=== PATIENT | male | born 1955 | race Caucasian/White ===

== ENCOUNTER 2016-08-31 11:00 | Day surgery (SDC) | payer MEDICARE, OTHER ==
[~2016-08-31 11:00] MED LIST: GENTAMICIN SULFATE 80 MG in DEXTROSE 5 % IN WATER 100 ML IV PRN; metroNIDAZOLE/SODIUM CHLORIDE 500 MG/100 ML BAG IV PRN
--- OUTSIDE RECORDS SUMMARY | 2016-08-31 11:06 | XMS REPORT | Continuity of Care Document ---
:1955 Author Organization [facility] ([facility]) Address [address] [place] [address] Phone [phone] Care Team Providers Name Role Phone Christiano Ríos Primary Care Provider [phone] Source Comments This disclosure is being made pursuant to the Care Everywhere program, applicable federal and state laws, and may not contain all informaitonavailable regarding this patient.[facility] ([facility]) Active Allergies and Adverse Reactions Allergen Noted Date Severity Reactions Comments Penicillins 05/19/2009 Nausea & Vomiting Current Medications Prescription Sig. Disp. Refills Start Date End Date Status desvenlafaxine take 50 mg by mouth Active (PRISTIQ) 50 mg XR daily. tablet metoPROLol (TOPROL XL) take 50 mg by mouth 2 Active 50 mg XL tablet times daily. gemfibrozil (LOPID) take 600 mg by mouth Active 600 mg tablet 2 times daily. Fluticasone Furoate use 1 [place] into each Active 27.5 mcg/Actuation nostril as needed. SpSn lisinopril (PRINIVIL) take 40 mg by mouth 2 Active 40 mg tablet times daily. gabapentin (NEURONTIN) take 600 mg by mouth Active 600 mg tablet 2 times daily. nortriptyline take 100 mg by mouth Active (PAMELOR) 50 mg at bedtime. capsule ACETAMINOPHEN (TYLENOL Take 2 Tabs by mouth Active ARTHRITIS PO) 2 times daily. simvastatin 40 mg Take 40 mg by mouth Active tablet every evening. methocarbamol 750 mg Take 750 mg by mouth Active tablet 4 times daily. multivitamin (MULTIPLE Take 1 Tab by mouth 2 Active VITAMINS) tablet times daily. ursodiol 300 mg Take 1 Cap by mouth 3 90 Cap 8 10/15/2011 Active capsule times daily. Indications: CHOLELITHIASIS PREVENTION cyanocobalamin, place 5,000 mcg under Active vitamin B-12, (VITAMIN the tongue daily. OCT B-12) 5,000 mcg Subl Product GLIMEPIRIDE PO Take 1 Tab by mouth 2 Active times daily. 1/2 tab in AM, Full tab in evening omeprazole 20 mg Take 1 Cap by mouth 30 Cap 3 02/08/2012 Active extended release daily. Indications: capsule PREVENTION OF STRESS ULCER Active Problems Problem Noted Date Bariatric surgery status 10/29/2011 Morbid obesity 10/24/2011 Asthma 04/06/2011 Overview: On inhalers PRN Arthritis 04/06/2011 Overview: On Tylenol Arthristis Hypogonadism male 04/06/2011 Overview: Going shari start on Hormone therapy Diabetes mellitus type 2 in obese 02/08/2010 Last Assessment & Plan: Patient was previously on insulin. Now on Metformin and Glipizide (5 mg tid) Pain in joint, multiple sites 02/08/2010 Back pain 02/08/2010 Peripheral edema 02/08/2010 Depressive disorder, not elsewhere classified 02/08/2010 Mixed hyperlipidemia 08/04/2009 HTN (hypertension) 08/03/2009 Preop cardiovascular exam 08/03/2009 Social History Tobacco Use Types Packs/Day Years Used Date Former Smoker Quit: 05/10/2009 Smokeless Tobacco: Never Used Alcohol Use Drinks/Week oz/Week Comments Yes 3-6 Cans of beer 0.0 Last Filed Vital Signs Vital Sign Reading Time Taken Blood Pressure 142/73 03/14/2012 2:06 PM [employer] Pulse 70 03/14/2012 2:06 PM [employer] Temperature 36.3 C (97.3 F) 03/14/2012 2:06 PM [employer] Respiratory Rate 19 10/25/2011 4:00 PM CDT Height 1.85 m (6' 0.83") 03/14/2012 2:06 PM [employer] Weight 157.5 kg (347 lb 3.6 oz) 03/14/2012 2:06 PM [employer] Body Mass Index 46.02 03/14/2012 2:06 PM [employer] Oxygen Saturation 95% 10/25/2011 4:00 PM CDT Plan of Care Health Maintenance Due Date Last Done Comments HCV Screening 1955 Hepatitis B Vaccine (1 of 3 - 1955 Primary Series) Tdap Vaccine 1967 MMR Vaccine 1974 Td Vaccine 1974 Pneumococcal Vaccine (1 of 1 1975 - PPSV23) DIABETIC: Microalbumin 11/12/2000 11/13/1999 Colonoscopy 2006 Prostate Cancer Screening 2006 DIABETIC: Foot Exam 10/17/2010 DIABETIC: Retinal Eye Exam 10/17/2010 DIABETIC: Hemoglobin A1C 09/11/2012 03/14/2012, Additional history exists 02/08/2012, 11/30/2011 DIABETIC: Cholesterol 03/14/2013 03/14/2012, Additional history exists 09/06/2011, 01/12/2010 Diabetic: Hdl 03/14/2013 03/14/2012, Additional history exists 09/06/2011, 01/12/2010 Diabetic: Ldl 03/14/2013 03/14/2012, Additional history exists 09/06/2011, 01/12/2010 DIABETIC: Triglycerides 03/14/2013 03/14/2012, Additional history exists 09/06/2011, 01/12/2010 Influenza Vaccine: Seasonal 12/05/2015 (#1) Zoster Vaccine 2016 Results from Last 3 Months Not on file
--- OUTSIDE RECORDS SUMMARY | 2016-08-31 11:06 | XMS REPORT | Continuity of Care Document ---
:1955 Author Organization [facility] [place] [address] Care Team Providers Name Role Phone Unavailable Primary Care Provider Unavailable Source Comments This disclosure is being made pursuant to the [employer] program and maynot contain all information available regarding this patient.[facility] Active Allergies and Adverse Reactions Not on File Current Medications Be aware that medications may not be up to date as of this document. Alwaysverify current medications with the patient. Not on file Active Problems Not on file Social History Tobacco Use Types Packs/Day Years Used Date Never Assessed Plan of Care Health Maintenance Due Date Last Done Comments Tetanus/Pertussis (1 - Tdap) 1975 Colonoscopy 2006 Well Adult Visit 2006 Influenza Immunization (#1) 2016 Zoster Vaccine 60+ 2016 Results from Last 3 Months Not on file
--- OUTSIDE RECORDS SUMMARY | 2016-08-31 11:07 | XMS REPORT | Summary of Care ---
:1955 Author Organization [facility] Address [address] [place] [address] Care Team Providers Name Role Phone Mathieu Wilson J Primary Care Physician Encounter Date(s): 09/26/15 - 09/26/15 [facility] Tabatha Chowdhury, [address] [place], [place] [id number] Discharge Disposition: 01 Discharged to Home or Self Care Attending Physician: Alicia Saenz DPM Referring Physician: Alicia Saenz DPM Vital Signs Most recent to oldest [Reference Range]: 1 Peripheral Pulse Rate [60-100 bpm] 74 bpm (09/26/15 1:06 PM) Blood Pressure [90-130/60-90 mmHg] 164/85mmHg *HI* (09/26/15 1:06 PM) Mean Arterial Pressure, Cuff 111 mmHg (09/26/15 1:06 PM) Most recent to oldest [Reference Range]: 1 Height/Length Measured 185 cm (09/26/15 1:06 PM) Weight Dosing 158.80 kg1 (09/26/15 1:12 PM) Weight Measured 158.80 kg (09/26/15 1:06 PM) BSA Measured 2.73 m2 (09/26/15 1:06 PM) Body Mass Index Measured 46.4 kg/m2 (09/26/15 1:06 PM) 1Result Comment: This result was because the dosing weight was either not entered or it is>30 days old. This result is based off: Weight Measured September 26, 2015 13:06:00 CDT by Deloris Ngo Problem List Condition Effective Dates Status Health Status Informant Anxiety(Confirmed) Active Chronic back pain(Confirmed) Active BPH - Benign prostatic Active hypertrophy(Confirmed) Chronic pain(Confirmed) Active COPD(Confirmed) Active Generalized osteoarthritis(Confirmed) Active Depression(Confirmed) Active Diabetes mellitus type 2(Confirmed) Active Esophageal reflux(Confirmed) Active Hyperlipidemia(Confirmed) Active Hypertension(Confirmed) Active Hypertriglyceridemia(Confirmed) Active Impaired mobility(Confirmed) Active Impotence of organic origin(Confirmed) Active Chronic joint pain(Confirmed) Active Morbid (severe) obesity due to excess Active calories(Confirmed) MRSA(Confirmed) Active Neuropathic pain(Confirmed) Active Obesity(Confirmed) Active Unsteady gait(Confirmed) Active Allergies, Adverse Reactions, Alerts Substance Reaction Severity Status penicillins Vomiting Active Tape rash Severe Active Medications albuterol CFC free 90 mcg/inh inhalation aerosol 2 puff(s), Inhale, q4hr, PRN shortness of breath or wheezing, # 1 EA, 0 Refill(s ), Pharmacy: [place], [place] Start Date: 01/15/14 Stop Date: 02/14/14 Status: OrderedamLODIPine 5 mg oral tablet 1 tab(s), Oral, Daily, # 90 tab(s), 1 Refill(s), Start Date: 10/13/15 9:44:20 CDT, Pharmacy: [place], [place] Start Date: 10/13/15 Status: OrderedamLODIPine 5 mg oral tablet 1 tab(s), Oral, Daily, X 30 days, # 30 tab(s), 2 Refill(s), Start Date: 13:13:00 MANAGER PORTABLE, Pharmacy: [place] Start Date: 03/30/15 Stop Date: 07/12/15 Status: CompletedamLODIPine 5 mg oral tablet 1 tab(s), Oral, Daily, X 30 days, # 30 tab(s), 1 Refill(s), Start Date: 12:04:00 MANAGER PORTABLE, Pharmacy: [place] Start Date: 07/12/15 Stop Date: 10/13/15 Status: CompletedByetta Prefilled Pen 5 mcg/0.02 mL subcutaneous solution 0.02, Subcutaneous, BID, 0 Refill(s) Start Date: 12/24/13 Stop Date: 04/12/14 Status: DiscontinuedByetta Prefilled Pen 5 mcg/0.02 mL subcutaneous solution 5 mcg, Subcutaneous, BID, 30 day supply, # 1 QS, 2 Refill(s), Start Date: 11:25:24 MANAGER PORTABLE, Pharmacy: [place], [place] Special Instructions: insurance refused coverage--switched to Victo[employer] Start Date: 06/18/14 Stop Date: 07/27/14 Status: DiscontinuedByetta Prefilled Pen 5 mcg/0.02 mL subcutaneous solution 0.02, Subcutaneous, BID, 30 day supply, # 1 QS, 0 Refill(s), Start Date: 15:26:54 MANAGER PORTABLE, Pharmacy: [place], [place] Special Instructions: 30 day supply Start Date: 04/12/14 Stop Date: 06/18/14 Status: CompletedCentrum Silver oral tablet 1 tab(s), Oral, Daily, 0 Refill(s) Start Date: 01/10/14 Stop Date: 01/11/14 Status: Discontinuedcephalexin 250 mg oral capsule 1 cap(s), Oral, QID, # 40 cap(s), 0 Refill(s), Start Date: 08/15/15 14:16:00 CDT , Pharmacy: [place] Start Date: 08/15/15 Stop Date: 08/25/15 Status: Orderedcholecalciferol 50,000 intl units oral capsule 1 cap(s), Oral, q7day, # 8 cap(s), 0 Refill(s), Start Date: 08/23/14 8:17:00 CDT , Pharmacy: [place] Start Date: 08/23/14 Stop Date: 05/24/15 Status: CompletedCialis 20 mg oral tablet 0.5 tab(s), Oral, Daily, # 8 tab(s), 0 Refill(s), Start Date: 02/19/14 10:47:00 CDT, samples given to patient (Rx), [id number], 08/04/14 Start Date: 02/19/14 Stop Date: 08/19/14 Status: DiscontinuedCialis 20 mg oral tablet 0.5 tab(s), Oral, Daily, # 8 tab(s), 0 Refill(s), Start Date: 08/19/14 13:49:20 CDT, Pharmacy: [place], [place], [id number], 08/04/14 Start Date: 08/19/14 Stop Date: 05/24/15 Status: CompletedCialis 5 mg oral tablet 1 tab(s), Oral, Daily, PRN for erectile dysfunction, # 30 tab(s), 0 Refill(s), samples given to patient (Rx), [id number], 04/05/16 Start Date: 12/24/13 Stop Date: 03/05/14 Status: DiscontinuedCipro 500 mg oral tablet 1 tab(s), Oral, q12hr, # 20 tab(s), 0 Refill(s), Start Date: 09/26/15 13:39:00 CDT, Pharmacy: [place] Start Date: 09/26/15 Stop Date: 10/12/15 Status: CompletedCipro 500 mg oral tablet 1 tab(s), Oral, q12hr, # 28 tab(s), 0 Refill(s), Start Date: 10/12/15 10:51:00 CDT, Pharmacy: [place] Start Date: 10/12/15 Stop Date: 10/26/15 Status: Orderedciprofloxacin pt unsure of dose, 0 Refill(s) Special Instructions: pt unsure of dose Start Date: 01/10/14 Stop Date: 01/11/14 Status: Discontinuedciprofloxacin 500 mg oral tablet, extended release 1 tab(s), Oral, BID, take until 01/18/14, 0 Refill(s) Special Instructions: take until 01/18/14 Start Date: 01/11/14 Stop Date: 01/15/14 Status: Discontinuedclindamycin 300 mg oral capsule 1 cap(s), Oral, BID, # 20 cap(s), 0 Refill(s), Start Date: 09/26/15 13:39:00 CDT , Pharmacy: [place] Start Date: 09/26/15 Stop Date: 10/12/15 Status: Completedcyclobenzaprine 5 mg oral tablet 1 tab(s), Oral, TID, # 90 tab(s), 3 Refill(s), Start Date: 07/13/14 10:47:23 CDT , Pharmacy: [place] Start Date: 07/13/14 Stop Date: 11/04/14 Status: Completedcyclobenzaprine 5 mg oral tablet 1 tab(s), Oral, TID, X 30 days, # 90 tab(s), 1 Refill(s), Start Date: 05/21/14 13:15:00 MANAGER PORTABLE, Pharmacy: [place] Start Date: 05/21/14 Stop Date: 07/13/14 Status: Completedcyclobenzaprine 5 mg oral tablet 1 tab(s), Oral, TID, # 90 tab(s), 5 Refill(s), Start Date: 03/14/15 12:04:00 MANAGER PORTABLE , Pharmacy: [place] Start Date: 03/14/15 Status: Orderedcyclobenzaprine 5 mg oral tablet 1 tab(s), Oral, TID, # 90 tab(s), 3 Refill(s), Start Date: 11/04/14 16:52:55 CDT , Pharmacy: [place] Start Date: 11/04/14 Stop Date: 03/14/15 Status: Completedesomeprazole 20 mg oral delayed release capsule cap(s), Oral, Daily, 0 Refill(s) Start Date: 12/24/13 Stop Date: 01/11/14 Status: Discontinuedfenofibrate 145 mg oral tablet 1 tab(s), Oral, Daily, # 30 tab(s), 2 Refill(s), Start Date: 05/13/14 15:29:18 MANAGER PORTABLE, Pharmacy: [place] Start Date: 05/13/14 Stop Date: 08/12/14 Status: Completedfenofibrate 145 mg oral tablet 1 tab(s), Oral, Daily, # 30 tab(s), 0 Refill(s), Start Date: 04/12/14 15:26:55 MANAGER PORTABLE, Pharmacy: [place] Start Date: 04/12/14 Stop Date: 05/13/14 Status: Completedfenofibrate 145 mg oral tablet 1 tab(s), Oral, Daily, 0 Refill(s) Start Date: 01/11/14 Stop Date: 04/12/14 Status: Discontinuedfenofibrate 145 mg oral tablet 1 tab(s), Oral, Daily, # 30 tab(s), 5 Refill(s), Start Date: 12/09/14 17:53:00 CDT, Pharmacy: [place] Start Date: 12/09/14 Stop Date: 06/09/15 Status: Completedfenofibrate 145 mg oral tablet 1 tab(s), Oral, Daily, # 30 tab(s), 5 Refill(s), Start Date: 06/09/15 13:54:00 MANAGER PORTABLE, Pharmacy: [place] Start Date: 06/09/15 Status: Orderedfenofibrate 145 mg oral tablet 1 tab(s), Oral, Daily, # 30 tab(s), 3 Refill(s), Start Date: 08/12/14 17:14:48 CDT, Pharmacy: [place] Start Date: 08/12/14 Stop Date: 12/09/14 Status: Completedfenofibrate 54 mg oral tablet 1 tab(s), Oral, HS, 0 Refill(s) Start Date: 01/10/14 Stop Date: 01/11/14 Status: Discontinuedfluticasone 50 mcg/inh nasal spray 1-2 spray(s), Nasal, Daily, 0 Refill(s) Start Date: 12/24/13 Stop Date: 01/11/14 Status: Discontinuedfluticasone 50 mcg/inh nasal spray 1 spray(s), Nasal, BID, PRN allergy symptoms, # 1 EA, 5 Refill(s), Start Date: 06/02/15 13:11:00 MANAGER PORTABLE, Pharmacy: [place] Start Date: 06/02/15 Stop Date: 11/29/15 Status: Orderedfluticasone 50 mcg/inh nasal spray 1 puff(s), Nasal, Daily, # 1 EA, 0 Refill(s), Pharmacy: [place] Start Date: 01/15/14 Stop Date: 08/19/14 Status: Discontinuedgabapentin 800 mg oral tablet See Instructions, 800 mg in the AM and afternoon.1600 mg at HS., # 1 QS, 4 Refill(s), Start Date: 05/13/14 15:29:17 MANAGER PORTABLE, Pharmacy: [place] Special Instructions: 800 mg in the AM and afternoon.1600 mg at HS. Start Date: 05/13/14 Stop Date: 02/09/15 Status: Completedgabapentin 800 mg oral tablet 1 tab(s), Oral, TID, 0 Refill(s) Start Date: 12/24/13 Stop Date: 04/12/14 Status: Discontinuedgabapentin 800 mg oral tablet See Instructions, 800 mg in the AM and afternoon.1600 mg at HS., # 120 tab(s), 1 Refill(s), Start Date: 08/16/15 15:37:00 CDT, Pharmacy: [place] Special Instructions: 800 mg in the AM and afternoon.1600 mg at HS. Start Date: 08/16/15 Stop Date: 10/13/15 Status: Completedgabapentin 800 mg oral tablet See Instructions, 800 mg in the AM and afternoon.1600 mg at HS., # 120 tab(s), 5 Refill(s), Start Date: 02/09/15 12:11:00 CDT, Pharmacy: [place] Special Instructions: 800 mg in the AM and afternoon.1600 mg at HS. Start Date: 02/09/15 Stop Date: 08/16/15 Status: Completedgabapentin 800 mg oral tablet 1 tab(s), Oral, TID, # 90 tab(s), 0 Refill(s), Start Date: 04/12/14 15:26:56 MANAGER PORTABLE , Pharmacy: [place] Start Date: 04/12/14 Stop Date: 05/13/14 Status: Completedgabapentin 800 mg oral tablet See Instructions, 800 mg in the AM and afternoon.1600 mg at HS., # 120 tab(s), 1 Refill(s), Start Date: 10/13/15 9:47:12 CDT, Pharmacy: [place] Special Instructions: 800 mg in the AM and afternoon.1600 mg at HS. Start Date: 10/13/15 Status: Orderedglimepiride 4 mg oral tablet 1 tab(s), Oral, BID, # 60 tab(s), 2 Refill(s), Start Date: 05/13/14 15:29:19 MANAGER PORTABLE , Pharmacy: [place] Start Date: 05/13/14 Stop Date: 08/12/14 Status: Completedglimepiride 4 mg oral tablet 1 tab(s), Oral, BID, # 180 tab(s), 1 Refill(s), Start Date: 10/13/15 9:43:35 CDT , Pharmacy: [place] Start Date: 10/13/15 Status: Orderedglimepiride 4 mg oral tablet 1 tab(s), Oral, BID, 0 Refill(s) Start Date: 12/24/13 Stop Date: 04/12/14 Status: Discontinuedglimepiride 4 mg oral tablet 1 tab(s), Oral, BID, # 60 tab(s), 0 Refill(s), Start Date: 04/12/14 15:26:53 MANAGER PORTABLE , Pharmacy: [place] Start Date: 04/12/14 Stop Date: 05/13/14 Status: Completedglimepiride 4 mg oral tablet 1 tab(s), Oral, BID, # 180 tab(s), 3 Refill(s), Start Date: 09/16/14 18:17:38 CDT, Pharmacy: [place] Start Date: 09/16/14 Stop Date: 10/13/15 Status: Completedglimepiride 4 mg oral tablet 1 tab(s), Oral, BID, # 60 tab(s), 3 Refill(s), Start Date: 08/12/14 17:14:45 CDT , Pharmacy: [place] Start Date: 08/12/14 Stop Date: 09/16/14 Status: Completedheparin flush 10 units/mL intravenous solution 5 mL, IV Push, As Indicated, PRN PICC Maintenance, 0 Refill(s) Start Date: 01/15/14 Stop Date: 03/05/14 Status: DiscontinuedHumaLOG 100 units/mL subcutaneous solution See Instructions, Give 3 units plus sliding scale with evening meal., # 10 mL, 0 Refill(s), Start Date: 04/26/15 16:13:00 MANAGER PORTABLE, Pharmacy: [place] Special Instructions: Give 3 units plus sliding scale with evening meal. Start Date: 04/26/15 Stop Date: 05/10/15 Status: CompletedHumaLOG 100 units/mL subcutaneous solution See Instructions, Give 3 units plus sliding scale with evening meal., # 10 mL, 5 Refill(s), Start Date: 05/10/15 7:52:00 MANAGER PORTABLE, Pharmacy: [place] Special Instructions: Give 3 units plus sliding scale with evening meal. Start Date: 05/10/15 Status: Orderedhydrochlorothiazide 12.5 mg oral tablet 1 tab(s), Oral, Daily, X 30 days, # 30 tab(s), 2 Refill(s), Start Date: 14:25:00 CDT, Pharmacy: [place] Start Date: 07/19/15 Stop Date: 08/15/15 Status: Completedhydrochlorothiazide 25 mg oral tablet 1 tab(s), Oral, Daily, # 30 tab(s), 2 Refill(s), Start Date: 08/15/15 13:53:00 CDT, Pharmacy: [place] Start Date: 08/15/15 Stop Date: 11/13/15 Status: Orderedinsulin detemir 100 units/mL subcutaneous solution See Instructions, 20 units in the AM and PM daily. 30 day supply, Levimer FlexTouch, # 1 QS, 1 Refill(s), Start Date: 04/12/14 15:26:54 MANAGER PORTABLE, Pharmacy: [place] Special Instructions: 20 units in the AM and PM daily. 30 day supply, Levimer FlexTouch Start Date: 04/12/14 Stop Date: 08/12/14 Status: Completedinsulin detemir 100 units/mL subcutaneous solution 0.2 mL, Subcutaneous, Daily, 0 Refill(s) Start Date: 01/15/14 Stop Date: 04/12/14 Status: Discontinuedinsulin detemir 100 units/mL subcutaneous solution See Instructions, 20 units in the AM and PM daily. 30 day supply, Levimer FlexTouch, # 15 mL, 5 Refill(s), Start Date: 10/11/14 9:46:52 CDT, Pharmacy: [place] Special Instructions: 20 units in the AM and PM daily. 30 day supply, Levimer FlexTouch Start Date: 10/11/14 Stop Date: 05/11/15 Status: Completedinsulin detemir 100 units/mL subcutaneous solution See Instructions, 20 units in the AM and PM daily. 30 day supply, Levimer FlexTouch, # 15 mL, 3 Refill(s), Start Date: 08/12/14 17:14:46 CDT, Pharmacy: [place] Special Instructions: 20 units in the AM and PM daily. 30 day supply, Levimer FlexTouch Start Date: 08/12/14 Stop Date: 10/11/14 Status: Completedinsulin detemir 100 units/mL subcutaneous solution See Instructions, 20 units in the AM and 30 units PM daily. 30 day supply, Levimer FlexTouch, # 15 mL, 11 Refill(s), Start Date: 05/11/15 17:34:00 MANAGER PORTABLE, Pharmacy: [place] Special Instructions: 20 units in the AM and 30 units PM daily. 30 day supply, Levimer FlexTouch Start Date: 05/11/15 Status: OrderedInsulin Pen [place] 516" 31G 100 [place], Subcutaneous, Daily, use once daily. DX 250.00. Easy touch pen needles., # 1 QS, 1 Refill(s), Pharmacy: [place], [place], Supply Special Instructions: use once daily. DX 250.00. Easy touch pen needles. Start Date: 09/07/14 Stop Date: 08/16/15 Status: DiscontinuedInsulin Pen [place] 5/16" 31G 100 [place], Subcutaneous, Daily, use daily. DX 250.00, # 1 QS, 1 Refill(s), Supply Special Instructions: use daily. DX 250.00 Start Date: 09/07/14 Stop Date: 09/07/14 Status: DiscontinuedInsulin Syringes 3/10" 31G 6mm See Instructions, Subcutaneous TID. DX E11.9. Patient states that he needs 50 unit syringes., # 300 EA, 3 Refill(s), Pharmacy: [place], [place] , Supply Special Instructions: Subcutaneous TID. DX E11.9. Patient states that he needs 50 unit syringes. Start Date: 06/02/15 Status: OrderedInsulin Syringes 3/10" 31G 6mm 300 syringe(s), Subcutaneous, TID, DX E11.9. Patient states that he uses 50 unit syringes., # 3 boxes, 0 Refill(s), Supply Special Instructions: DX E11.9. Patient states that he uses 50 unit syringes. Start Date: 06/02/15 Stop Date: 06/02/15 Status: DiscontinuedLevemir FlexPen/FlexTouch 100 units/mL subcutaneous solution Subcutaneous, 0 Refill(s) Start Date: 12/24/13 Stop Date: 01/11/14 Status: DiscontinuedLevemir FlexPen/FlexTouch 100 units/mL subcutaneous solution 20 units, Subcutaneous, BID, 0 Refill(s) Start Date: 01/11/14 Stop Date: 01/15/14 Status: Discontinuedlisinopril 40 mg oral tablet 1 tab(s), Oral, BID, # 60 tab(s), 2 Refill(s), Start Date: 05/13/14 15:29:19 MANAGER PORTABLE , Pharmacy: [place] Start Date: 05/13/14 Stop Date: 08/12/14 Status: Completedlisinopril 40 mg oral tablet 1 tab(s), Oral, BID, 0 Refill(s) Start Date: 12/24/13 Stop Date: 01/15/14 Status: Discontinuedlisinopril 40 mg oral tablet 1 tab(s), Oral, BID, # 180 tab(s), 1 Refill(s), Start Date: 10/13/15 9:42:12 CDT , Pharmacy: [facility], [place] Start Date: 10/13/15 Status: Orderedlisinopril 40 mg oral tablet 1 tab(s), Oral, Daily, # 30 tab(s), 0 Refill(s), Start Date: 01/15/14 9:26:00 CDT, Pharmacy: [facility], [place] Start Date: 01/15/14 Stop Date: 04/12/14 Status: Completedlisinopril 40 mg oral tablet 1 tab(s), Oral, BID, # 60 tab(s), 0 Refill(s), Start Date: 04/12/14 15:26:53 MANAGER PORTABLE , Pharmacy: [facility], [place] Start Date: 04/12/14 Stop Date: 05/13/14 Status: Completedlisinopril 40 mg oral tablet 1 tab(s), Oral, BID, # 180 tab(s), 3 Refill(s), Start Date: 09/16/14 18:17:38 CDT, Pharmacy: [place] Start Date: 09/16/14 Stop Date: 10/13/15 Status: Completedlisinopril 40 mg oral tablet 1 tab(s), Oral, BID, # 60 tab(s), 3 Refill(s), Start Date: 08/12/14 17:14:45 CDT , Pharmacy: [place] Start Date: 08/12/14 Stop Date: 09/16/14 Status: CompletedMaxair Autohaler 0.2 mg/inh inhalation aerosol 2 puff(s), Inhale, q4hr interval, 0 Refill(s) Start Date: 12/24/13 Stop Date: 01/11/14 Status: DiscontinuedmetFORMIN 500 mg oral tablet 2 tab(s), Oral, BID, # 360 tab(s), 1 Refill(s), Start Date: 10/13/15 9:42:53 CDT , Pharmacy: [place] Start Date: 10/13/15 Status: OrderedmetFORMIN 500 mg oral tablet 2 tab(s), Oral, BID, 0 Refill(s), Start Date: 12/24/13 9:43:00 CDT Start Date: 12/24/13 Stop Date: 04/12/14 Status: DiscontinuedmetFORMIN 500 mg oral tablet 2 tab(s), Oral, BID, # 360 tab(s), 3 Refill(s), Start Date: 09/16/14 18:17:39 CDT, Pharmacy: [place] Start Date: 09/16/14 Stop Date: 10/13/15 Status: CompletedmetFORMIN 500 mg oral tablet 2 tab(s), Oral, BID, # 120 tab(s), 2 Refill(s), Start Date: 05/13/14 15:29:16 MANAGER PORTABLE, Pharmacy: [place] Start Date: 05/13/14 Stop Date: 08/12/14 Status: CompletedmetFORMIN 500 mg oral tablet 2 tab(s), Oral, BID, # 120 tab(s), 3 Refill(s), Start Date: 08/12/14 17:14:47 CDT, Pharmacy: [facility], [place] Start Date: 08/12/14 Stop Date: 09/16/14 Status: CompletedmetFORMIN 500 mg oral tablet 2 tab(s), Oral, BID, # 120 tab(s), 0 Refill(s), Start Date: 04/12/14 15:26:54 MANAGER PORTABLE, Pharmacy: [place] Start Date: 04/12/14 Stop Date: 05/13/14 Status: Completedmethocarbamol 750 mg oral tablet 1 tab(s), Oral, QID, # 120 tab(s), 0 Refill(s), Start Date: 04/12/14 15:26:53 MANAGER PORTABLE, Pharmacy: [facility], [place] Start Date: 04/12/14 Stop Date: 05/13/14 Status: Completedmethocarbamol 750 mg oral tablet 1 tab(s), Oral, QID, 0 Refill(s) Start Date: 12/24/13 Stop Date: 04/12/14 Status: Discontinuedmethocarbamol 750 mg oral tablet 1 tab(s), Oral, QID, # 120 tab(s), 2 Refill(s), Start Date: 05/13/14 15:29:20 MANAGER PORTABLE, Pharmacy: [facility], [place] Start Date: 05/13/14 Stop Date: 05/21/14 Status: DiscontinuedMetoprolol Tartrate 25 mg oral tablet 1 tab(s), Oral, BID, # 60 tab(s), 4 Refill(s), Start Date: 05/13/14 15:29:18 MANAGER PORTABLE , Pharmacy: [facility], [place] Start Date: 05/13/14 Stop Date: 11/04/14 Status: CompletedMetoprolol Tartrate 25 mg oral tablet 1 tab(s), Oral, BID, 0 Refill(s) Start Date: 12/24/13 Stop Date: 04/12/14 Status: DiscontinuedMetoprolol Tartrate 25 mg oral tablet 1 tab(s), Oral, BID, # 60 tab(s), 5 Refill(s), Start Date: 01/11/15 17:54:00 CDT , Pharmacy: [facility], [place] Start Date: 01/11/15 Stop Date: 08/16/15 Status: CompletedMetoprolol Tartrate 25 mg oral tablet 1 tab(s), Oral, BID, # 60 tab(s), 0 Refill(s), Start Date: 04/12/14 15:26:55 MANAGER PORTABLE , Pharmacy: [place] Start Date: 04/12/14 Stop Date: 05/13/14 Status: CompletedMetoprolol Tartrate 25 mg oral tablet 1 tab(s), Oral, BID, Appt due in November, # 60 tab(s), 1 Refill(s), Start Date: 06/20 16:52:55 CDT, Pharmacy: [place] Special Instructions: Appt due in November Start Date: 11/04/14 Stop Date: 01/11/15 Status: CompletedMetoprolol Tartrate 25 mg oral tablet 1 tab(s), Oral, BID, # 60 tab(s), 1 Refill(s), Start Date: 08/16/15 15:37:00 CDT , Pharmacy: [place] Start Date: 08/16/15 Stop Date: 10/13/15 Status: CompletedMetoprolol Tartrate 25 mg oral tablet 1 tab(s), Oral, BID, # 180 tab(s), 1 Refill(s), Start Date: 10/13/15 9:46:39 CDT , Pharmacy: [place] Start Date: 10/13/15 Status: OrderedMisc Prescription Misc Prescription, See Instructions, Easy Touch pen needles 5/16, use once daily. DX E11.9, # 100 EA, 1 Refill(s), Pharmacy: [place] , Compound Special Instructions: Easy Touch pen needles 5/16, use once daily. DX E11.9 Start Date: 02/09/15 Status: OrderedMisc Prescription See Instructions, Easy Touch pen needles 5/16, use once daily. DX E11.9, # 100 EA, 1 Refill(s), Supply Special Instructions: Easy Touch pen needles 5/16, use once daily. DX E11.9 Start Date: 02/09/15 Stop Date: 02/09/15 Status: Discontinuednabumetone See Instructions, One tablet twice daily, 0 Refill(s), Start Date: 04/09/14 13: 44:00 MANAGER PORTABLE Special Instructions: One tablet twice daily Start Date: 04/09/14 Stop Date: 04/21/14 Status: Discontinuednabumetone 750 mg oral tablet 2 tab(s), Oral, BID, # 120 tab(s), 5 Refill(s), Start Date: 08/19/14 13:47:59 CDT, Pharmacy: [place] Start Date: 08/19/14 Stop Date: 12/09/14 Status: Completednabumetone 750 mg oral tablet 2 tab(s), Oral, BID, # 60 tab(s), 2 Refill(s), Start Date: 05/21/14 13:07:38 MANAGER PORTABLE , Pharmacy: [place] Start Date: 05/21/14 Stop Date: 08/12/14 Status: Completednabumetone 750 mg oral tablet 2 tab(s), Oral, BID, with food, # 120 tab(s), 5 Refill(s), Start Date: 06/09/15 13:54:00 MANAGER PORTABLE, Pharmacy: [place] Special Instructions: with food Start Date: 06/09/15 Status: Orderednabumetone 750 mg oral tablet 2 tab(s), Oral, BID, # 120 tab(s), 3 Refill(s), Start Date: 08/12/14 17:14:46 CDT, Pharmacy: [facility], [place] Start Date: 08/12/14 Stop Date: 08/19/14 Status: Discontinuednabumetone 750 mg oral tablet 2 tab(s), Oral, BID, # 120 tab(s), 5 Refill(s), Start Date: 12/09/14 17:53:00 CDT, Pharmacy: [place] Start Date: 12/09/14 Stop Date: 06/09/15 Status: Completednabumetone 750 mg oral tablet 2 tab(s), Oral, BID, # 60 tab(s), 2 Refill(s), Start Date: 04/21/14 10:40:00 MANAGER PORTABLE , Pharmacy: [place] Start Date: 04/21/14 Stop Date: 05/21/14 Status: CompletedNasonex 50 mcg/inh nasal spray 2 spray(s), Nasal, Daily, PRN as needed for allergy symptoms, # 17 gm, 0 Refill( s), Start Date: 08/19/14 13:21:00 CDT Start Date: 08/19/14 Status: OrderedNorco 5 mg-325 mg oral tablet 1 tab(s), Oral, q4hr, PRN pain moderate 4-7, # 30 tab(s), 0 Refill(s) Start Date: 01/15/14 Stop Date: 01/22/14 Status: Completednortriptyline 50 mg oral capsule 3 cap(s), Oral, HS, # 90 cap(s), 5 Refill(s), Start Date: 12/09/14 17:53:00 CDT , Pharmacy: [place] Start Date: 12/09/14 Stop Date: 06/09/15 Status: Completednortriptyline 50 mg oral capsule 3 cap(s), Oral, HS, 0 Refill(s) Start Date: 12/24/13 Stop Date: 04/12/14 Status: Discontinuednortriptyline 50 mg oral capsule 3 cap(s), Oral, HS, # 90 cap(s), 3 Refill(s), Start Date: 08/12/14 17:14:44 CDT , Pharmacy: [facility], [place] Start Date: 08/12/14 Stop Date: 12/09/14 Status: Completednortriptyline 50 mg oral capsule 3 cap(s), Oral, HS, # 90 cap(s), 2 Refill(s), Start Date: 05/13/14 15:29:17 MANAGER PORTABLE , Pharmacy: [facility], [place] Start Date: 05/13/14 Stop Date: 08/12/14 Status: Completednortriptyline 50 mg oral capsule 3 cap(s), Oral, HS, # 90 cap(s), 5 Refill(s), Start Date: 06/09/15 13:54:00 MANAGER PORTABLE , Pharmacy: [facility], [place] Start Date: 06/09/15 Status: Orderednortriptyline 50 mg oral capsule 3 cap(s), Oral, HS, # 90 cap(s), 0 Refill(s), Start Date: 04/12/14 15:26:55 MANAGER PORTABLE , Pharmacy: [place] Start Date: 04/12/14 Stop Date: 05/13/14 Status: Completedomeprazole 20 mg oral delayed release capsule 1 cap(s), Oral, BID, # 60 cap(s), 5 Refill(s), Start Date: 09/21/15 14:54:43 CDT , Pharmacy: [place] Start Date: 09/21/15 Status: Orderedomeprazole 20 mg oral delayed release capsule 1 cap(s), Oral, BID, # 60 cap(s), 5 Refill(s), Start Date: 09/07/14 16:08:52 CDT , Pharmacy: [place], [place] Start Date: 09/07/14 Stop Date: 03/14/15 Status: Completedomeprazole 20 mg oral delayed release capsule 1 cap(s), Oral, BID, # 60 cap(s), 0 Refill(s), Start Date: 04/12/14 15:26:52 MANAGER PORTABLE , Pharmacy: [place], [place] Start Date: 04/12/14 Stop Date: 05/13/14 Status: Completedomeprazole 20 mg oral delayed release capsule 1 cap(s), Oral, BID, # 60 cap(s), 5 Refill(s), Start Date: 03/14/15 12:04:00 MANAGER PORTABLE , Pharmacy: [place], [place] Start Date: 03/14/15 Stop Date: 09/21/15 Status: Completedomeprazole 20 mg oral delayed release capsule 1 cap(s), Oral, Daily, 0 Refill(s) Start Date: 01/11/14 Stop Date: 04/12/14 Status: Discontinuedomeprazole 20 mg oral delayed release capsule 1 cap(s), Oral, BID, # 60 cap(s), 3 Refill(s), Start Date: 05/13/14 15:29:17 MANAGER PORTABLE , Pharmacy: [place], [place] Start Date: 05/13/14 Stop Date: 09/07/14 Status: CompletedPen [place] Mini 31G 5mm See Instructions, Use daily with Tresiba and Victoza. DX E11.9, # 200 EA, 1 Refill(s), Pharmacy: [place], [place], Supply Special Instructions: Use daily with Tresiba and Victoza. DX E11.9 Start Date: 08/16/15 Status: OrderedPen [place] Mini 31G 5mm See Instructions, Use daily with Tresiba and Victoza, # 200 EA, 1 Refill(s), Supply Special Instructions: Use daily with Tresiba and Victoza Start Date: 08/16/15 Stop Date: 08/16/15 Status: DiscontinuedPneumovax 23 injectable solution See Instructions, IM ONETIME as directed, # 1 EA, 0 Refill(s), Start Date: 03/05 15:22:00 CDT, Pharmacy: [place], [place] Special Instructions: IM ONETIME as directed Start Date: 03/05/14 Stop Date: 08/19/14 Status: DiscontinuedPneumovax 23 injectable solution 0.5 mL, IM, ONETIME, # 1 mL, 0 Refill(s), Start Date: 03/05/14 15:20:00 CDT Start Date: 03/05/14 Stop Date: 03/05/14 Status: DiscontinuedPristiq 100 mg oral tablet, extended release 1 tab(s), Oral, Daily, # 30 tab(s), 5 Refill(s), Start Date: 12/09/14 17:53:00 CDT, Pharmacy: [place], [place] Start Date: 12/09/14 Stop Date: 06/09/15 Status: CompletedPristiq 100 mg oral tablet, extended release 1 tab(s), Oral, Daily, # 30 tab(s), 2 Refill(s), Start Date: 05/13/14 15:29:16 MANAGER PORTABLE, Pharmacy: [place] Start Date: 05/13/14 Stop Date: 08/12/14 Status: CompletedPristiq 100 mg oral tablet, extended release 1 tab(s), Oral, Daily, # 30 tab(s), 5 Refill(s), Start Date: 06/09/15 13:54:00 MANAGER PORTABLE, Pharmacy: [place] Start Date: 06/09/15 Status: OrderedPristiq 100 mg oral tablet, extended release 1 tab(s), Oral, Daily, # 30 tab(s), 0 Refill(s) Start Date: 01/11/14 Stop Date: 04/12/14 Status: DiscontinuedPristiq 100 mg oral tablet, extended release 1 tab(s), Oral, Daily, # 30 tab(s), 0 Refill(s), Start Date: 04/12/14 15:26:54 MANAGER PORTABLE, Pharmacy: [place] Start Date: 04/12/14 Stop Date: 05/13/14 Status: CompletedPristiq 100 mg oral tablet, extended release 1 tab(s), Oral, Daily, # 30 tab(s), 3 Refill(s), Start Date: 08/12/14 17:14:47 CDT, Pharmacy: [place] Start Date: 08/12/14 Stop Date: 12/09/14 Status: CompletedPristiq 50 mg oral tablet, extended release 2 tab(s), Oral, Daily, 0 Refill(s) Start Date: 12/24/13 Stop Date: 01/11/14 Status: DiscontinuedSenokot S 50 mg-8.6 mg oral tablet 1 tab(s), Oral, BID, X 7 days, # 14 tab(s), 0 Refill(s), Pharmacy: [place], [place] Start Date: 01/15/14 Stop Date: 01/22/14 Status: CompletedSuprep Bowel Prep Kit oral liquid 1 kit(s), Oral, ONETIME, # 1 kit(s), 0 Refill(s), Start Date: 04/12/15 8:52:00 MANAGER PORTABLE, Pharmacy: [place], [place] Start Date: 04/12/15 Stop Date: 05/26/15 Status: CompletedSuprep Bowel Prep Kit oral liquid 1 bottles, Oral, BID, Mix 1 btl to 16oz water and drink. Next morning; repeat use second btl. Complete at least 1 hr before colonscopy., # 1 kit(s), 0 Refill (s), Start Date: 04/12/15 8:38:00 MANAGER PORTABLE, Pharmacy: [place], [place] Special Instructions: Mix 1 btl to 16oz water and drink. Next morning; repeat use second btl. Complete at least 1 hr before colonscopy. Start Date: 04/12/15 Stop Date: 04/13/15 Status: CompletedTest Strips Other (See Comment) 3 Month Supply, Subcutaneous, TID, Truetest glucose test strips. DX 250.00, # 1 QS, 1 Refill(s), Pharmacy: [place], [place], Supply Special Instructions: Truetest glucose test strips. DX 250.00 Start Date: 05/13/14 Stop Date: 12/16/14 Status: CompletedTest Strips Other (See Comment) 3 Month Supply, Subcutaneous, TID, Truetest glucose test strips. DX E11.9, # 300 EA, 1 Refill(s), Pharmacy: [place], [place], Supply Special Instructions: Truetest glucose test strips. DX E11.9 Start Date: 02/09/15 Status: OrderedTest Strips Other (See Comment) 3 Month Supply, Subcutaneous, TID, Truetest glucose test strips. DX 250.00, # 1 QS, 1 Refill(s), Supply Special Instructions: Truetest glucose test strips. DX 250.00 Start Date: 05/13/14 Stop Date: 05/13/14 Status: DiscontinuedTest Strips Other (See Comment) 3 Month Supply, Subcutaneous, TID, Truetest glucose test strips. DX 250.00, # 1 QS, 1 Refill(s), Pharmacy: [place], [place], Supply Special Instructions: Truetest glucose test strips. DX 250.00 Start Date: 12/16/14 Stop Date: 02/09/15 Status: CompletedtraMADol 50 mg oral tablet 1 tab(s), Oral, q6hr interval, PRN pain moderate 4-7, # 60 tab(s), 1 Refill(s), Start Date: 05/21/14 13:07:39 MANAGER PORTABLE, Pharmacy: [place] Start Date: 05/21/14 Stop Date: 05/24/15 Status: CompletedtraMADol 50 mg oral tablet 1 tab(s), Oral, q6hr interval, PRN pain moderate 4-7, # 60 tab(s), 0 Refill(s), Start Date: 01/15/14 6:52:00 CDT Start Date: 01/15/14 Stop Date: 05/21/14 Status: CompletedtraMADol 50 mg oral tablet 1 tab(s), Oral, q6hr interval, 0 Refill(s) Start Date: 01/08/14 Stop Date: 01/11/14 Status: DiscontinuedTresiba FlexTouch 200 units/mL subcutaneous solution 50 units, Subcutaneous, Daily, # 9 mL, 1 Refill(s), Start Date: 10/13/15 9:45: 32 CDT, Pharmacy: [place] Start Date: 10/13/15 Status: OrderedTresiba FlexTouch 200 units/mL subcutaneous solution See Instructions, 50 units Subcutaneous Daily, # 1 EA, 2 Refill(s), Start Date: 07/19/15 14:26:00 CDT, Pharmacy: [place], [place] Special Instructions: 50 units Subcutaneous Daily Start Date: 07/19/15 Stop Date: 10/13/15 Status: CompletedTylenol Arthritis Caplet mg, Oral, q8hr interval, 0 Refill(s) Start Date: 12/24/13 Status: OrderedUnasyn 2 g-1 g injection 3 gm, IV, q6hr interval, # 148 bags, 0 Refill(s) Start Date: 01/15/14 Stop Date: 08/19/14 Status: Discontinuedursodiol 300 mg oral capsule 1 cap(s), Oral, TID, 0 Refill(s) Start Date: 12/24/13 Stop Date: 04/12/14 Status: Discontinuedursodiol 300 mg oral capsule 1 cap(s), Oral, TID, # 90 cap(s), 2 Refill(s), Start Date: 05/13/14 15:29:20 MANAGER PORTABLE , Pharmacy: [place] Start Date: 05/13/14 Stop Date: 08/12/14 Status: Completedursodiol 300 mg oral capsule 1 cap(s), Oral, TID, # 90 cap(s), 5 Refill(s), Start Date: 06/09/15 13:54:00 MANAGER PORTABLE , Pharmacy: [place] Start Date: 06/09/15 Stop Date: 12/06/15 Status: Orderedursodiol 300 mg oral capsule 1 cap(s), Oral, TID, # 90 cap(s), 5 Refill(s), Start Date: 12/09/14 17:53:00 CDT , Pharmacy: [place] Start Date: 12/09/14 Stop Date: 06/09/15 Status: Completedursodiol 300 mg oral capsule 1 cap(s), Oral, TID, # 90 cap(s), 3 Refill(s), Start Date: 08/12/14 17:14:47 CDT , Pharmacy: [place] Start Date: 08/12/14 Stop Date: 12/09/14 Status: Completedursodiol 300 mg oral capsule 1 cap(s), Oral, TID, # 90 cap(s), 0 Refill(s), Start Date: 04/12/14 15:26:52 MANAGER PORTABLE , Pharmacy: [place] Start Date: 04/12/14 Stop Date: 05/13/14 Status: CompletedVicodin 5 mg-325 mg oral tablet See Instructions, 1-2 tabOral 4- q6hr interval, 0 Refill(s) Special Instructions: 1-2 tabOral 4- q6hr interval Start Date: 01/28/14 Stop Date: 03/05/14 Status: DiscontinuedVictoza 18 mg/3 mL subcutaneous solution 0.6 mg, Subcutaneous, Daily, 0.6 mg daily for 7 days then increase to 1.2 mg daily., # 6 mL, 2 Refill(s), Start Date: 07/27/14 12:14:00 CDT, Pharmacy: [place], [place] Special Instructions: 0.6 mg daily for 7 days then increase to 1.2 mg daily. Start Date: 07/27/14 Stop Date: 11/16/14 Status: CompletedVictoza 18 mg/3 mL subcutaneous solution 1.2 mg, Subcutaneous, Daily, # 1 QS, 5 Refill(s), Start Date: 11/16/14 15:52:54 CDT, Pharmacy: [place] Start Date: 11/16/14 Stop Date: 03/30/15 Status: DiscontinuedVictoza 18 mg/3 mL subcutaneous solution 1.8 mg, Subcutaneous, Daily, # 1 QS, 5 Refill(s), Start Date: 03/30/15 11:25:28 MANAGER PORTABLE, Pharmacy: [place] Start Date: 03/30/15 Stop Date: 09/26/15 Status: OrderedVitamin D3 1000 intl units oral tablet 1 tab(s), Oral, Daily, # 30 tab(s), 0 Refill(s), Start Date: 05/24/15 11:56:00 MANAGER [employer]ABLE Start Date: 05/24/15 Status: OrderedZostavax subcutaneous injection See Instructions, Subcutaneous ONETIME as directed, # 1 EA, 0 Refill(s), Start Date: 03/05/14 15:20:00 CDT, Pharmacy: [facility] [place], [place] Special Instructions: Subcutaneous ONETIME as directed Start Date: 03/05/14 Stop Date: 08/19/14 Status: DiscontinuedZostavax subcutaneous injection 1 EA, Subcutaneous, ONETIME, # 1 EA, 0 Refill(s), Start Date: 03/05/14 15:19:00 CDT Start Date: 03/05/14 Stop Date: 03/05/14 Status: Discontinued Results No data available for this section Immunizations No data available for this section Procedures Procedure Date Related Diagnosis Body Site Colonoscopy1 05/26/15 Esophagogastroduodenoscopy2 05/26/15 Transurethral Resection Prostate3 02/01/14 Tendonesis (Left, Foot L)4 01/12/14 Cystoscopy 01/01/14 Ear drum5 2011 Gastric biopsy 2011 Polyp of vocal cord6 2010 Amputation of toe [id number] 1auto-populated from documented surgical [id number] from documented surgical [id number] from documented surgical [id number] from documented surgical [id number] Social History No data available for this section Assessment and Plan No data available for this section
--- OUTSIDE RECORDS SUMMARY | 2016-08-31 11:08 | XMS REPORT | Summary of Care ---
:1955 Author Organization [facility] Address [address] [place] [address] Care Team Providers Name Role Phone Mathieu Wilson J Primary Care Physician Encounter Date(s): 09/26/15 - 09/26/15 [facility] Tabatha Chowdhury, [address] [place], [place] [address] Discharge Disposition: 01 Discharged to Home or [...] # 1 EA, 0 Refill(s ), Pharmacy: [place], [place] Start Date: 01/15/14 Stop Date: 02/14/14 Status: OrderedamLODIPine 5 mg oral tablet 1 tab(s), Oral, Daily, # 90 tab(s), 1 Refill(s), Start Date: 10/13/15 9:44:20 CDT, Pharmacy: [place] Start Date: 10/13/15 Status: OrderedamLODIPine 5 mg oral tablet 1 tab(s), Oral, Daily, X 30 days, # 30 tab(s), 2 Refill(s), Start Date: 13:13:00 [employer]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, Pharmacy: [place] Start Date: 03/30/15 Stop Date: 07/12/15 Status: CompletedamLODIPine 5 mg oral tablet 1 tab(s), Oral, Daily, X 30 days, # 30 tab(s), 1 Refill(s), Start Date: 12:04:00 NA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, Pharmacy: [place] Start Date: 07/12/15 Stop Date: 10/13/15 Status: CompletedByetta Prefilled Pen 5 mcg/0.02 mL subcutaneous solution 0.02, Subcutaneous, BID, 0 Refill(s) Start Date: 12/24/13 Stop Date: 04/12/14 Status: DiscontinuedByetta Prefilled Pen 5 mcg/0.02 mL subcutaneous solution 5 mcg, Subcutaneous, BID, 30 day supply, # 1 QS, 2 Refill(s), Start Date: 11:25:24 NA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, Pharmacy: [place] Special Instructions: insurance refused coverage--switched to Victoza Start Date: 06/18/14 Stop Date: 07/27/14 Status: DiscontinuedByetta Prefilled Pen 5 mcg/0.02 mL subcutaneous solution 0.02, Subcutaneous, BID, 30 day supply, # 1 QS, 0 Refill(s), Start Date: 15:26:54 NA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, Pharmacy: [place] Special Instructions: 30 day supply Start Date: 04/12/14 Stop Date: 06/18/14 Status: CompletedCentrum Silver oral tablet 1 tab(s), Oral, Daily, 0 Refill(s) Start Date: 01/10/14 Stop Date: 01/11/14 Status: Discontinuedcephalexin 250 mg oral capsule 1 cap(s), Oral, QID, # 40 cap(s), 0 Refill(s), Start Date: 08/15/15 14:16:00 CDT , Pharmacy: [place] Start Date: 08/15/15 Stop Date: 08/25/15 Status: Orderedcholecalciferol 50,000 intl units oral capsule 1 cap(s), Oral, q7day, # 8 cap(s), 0 Refill(s), Start Date: 08/23/14 8:17:00 CDT , Pharmacy: [place] Start Date: 08/23/14 Stop Date: 05/24/15 Status: CompletedCialis 20 mg oral tablet 0.5 tab(s), Oral, Daily, # 8 tab(s), 0 Refill(s), Start Date: 02/19/14 10:47:00 CDT, samples given to patient (Rx), [id number], 08/04/14 Start Date: 02/19/14 Stop Date: 08/19/14 Status: DiscontinuedCialis 20 mg oral tablet 0.5 tab(s), Oral, Daily, # 8 tab(s), 0 Refill(s), Start Date: 08/19/14 13:49:20 CDT, Pharmacy: [place], [id number], 08/04/14 Start Date: 08/19/14 Stop Date: 05/24/15 Status: CompletedCialis 5 mg oral tablet 1 tab(s), Oral, Daily, PRN for erectile dysfunction, # 30 tab(s), 0 Refill(s), samples given to patient (Rx), [id number], 04/05/16 Start Date: 12/24/13 Stop Date: 03/05/14 Status: DiscontinuedCipro 500 mg oral tablet 1 tab(s), Oral, q12hr, # 20 tab(s), 0 Refill(s), Start Date: 09/26/15 13:39:00 CDT, Pharmacy: [place] Start Date: 09/26/15 Stop Date: 10/12/15 Status: CompletedCipro 500 mg oral tablet 1 tab(s), Oral, q12hr, # 28 tab(s), 0 Refill(s), Start Date: 10/12/15 10:51:00 CDT, Pharmacy: [place] Start Date: 10/12/15 Stop Date: 10/26/15 [...] Start Date: 09/26/15 13:39:00 CDT , Pharmacy: [place] Start Date: 09/26/15 Stop Date: 10/12/15 Status: Completedcyclobenzaprine 5 mg oral tablet 1 tab(s), Oral, TID, # 90 tab(s), 3 Refill(s), Start Date: 07/13/14 10:47:23 CDT , Pharmacy: [place] Start Date: 07/13/14 Stop Date: 11/04/14 Status: Completedcyclobenzaprine 5 mg oral tablet 1 tab(s), Oral, TID, X 30 days, # 90 tab(s), 1 Refill(s), Start Date: 05/21/14 13:15:00 NA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, Pharmacy: [place] Start Date: 05/21/14 Stop Date: 07/13/14 Status: Completedcyclobenzaprine 5 mg oral tablet 1 tab(s), Oral, TID, # 90 tab(s), 5 Refill(s), Start Date: 03/14/15 12:04:00 NA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 , Pharmacy: [place] Start Date: 03/14/15 Status: Orderedcyclobenzaprine 5 mg oral tablet 1 tab(s), Oral, TID, # 90 tab(s), 3 Refill(s), Start Date: 11/04/14 16:52:55 CDT , Pharmacy: [place] Start Date: 11/04/14 Stop Date: 03/14/15 Status: Completedesomeprazole 20 mg oral delayed release capsule cap(s), Oral, Daily, 0 Refill(s) Start Date: 12/24/13 Stop Date: 01/11/14 Status: Discontinuedfenofibrate 145 mg oral tablet 1 tab(s), Oral, Daily, # 30 tab(s), 2 Refill(s), Start Date: 05/13/14 15:29:18 NA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, Pharmacy: [place] Start Date: 05/13/14 Stop Date: 08/12/14 Status: Completedfenofibrate 145 mg oral tablet 1 tab(s), Oral, Daily, # 30 tab(s), 0 Refill(s), Start Date: 04/12/14 15:26:55 NA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, Pharmacy: [place] Start Date: 04/12/14 Stop Date: 05/13/14 Status: Completedfenofibrate 145 mg oral tablet 1 tab(s), Oral, Daily, 0 Refill(s) Start Date: 01/11/14 Stop Date: 04/12/14 Status: Discontinuedfenofibrate 145 mg oral tablet 1 tab(s), Oral, Daily, # 30 tab(s), 5 Refill(s), Start Date: 12/09/14 17:53:00 CDT, Pharmacy: [place] Start Date: 12/09/14 Stop Date: 06/09/15 Status: Completedfenofibrate 145 mg oral tablet 1 tab(s), Oral, Daily, # 30 tab(s), 5 Refill(s), Start Date: 06/09/15 13:54:00 NA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, Pharmacy[place] Start Date: 06/09/15 Status: Orderedfenofibrate 145 mg oral tablet 1 tab(s), Oral, Daily, # 30 tab(s), 3 Refill(s), Start Date: 08/12/14 17:14:48 CDT, Pharmacy: [place] Start Date: 08/12/14 Stop Date: 12/09/14 [...] EA, 5 Refill(s), Start Date: 06/02/15 13:11:00 NA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, Pharmacy: [place] Start Date: 06/02/15 Stop Date: 11/29/15 Status: Orderedfluticasone 50 mcg/inh nasal spray 1 puff(s), Nasal, Daily, # 1 EA, 0 Refill(s), Pharmacy: [place] Start Date: 01/15/14 Stop Date: 08/19/14 Status: Discontinuedgabapentin 800 mg oral tablet See Instructions, 800 mg in the AM and afternoon.1600 mg at HS., # 1 QS, 4 Refill(s), Start Date: 05/13/14 15:29:17 NA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, Pharmacy: [place] Special Instructions: 800 mg in the [...] Refill(s), Start Date: 08/16/15 15:37:00 CDT, Pharmacy[place] Special Instructions: 800 mg in the AM and afternoon.1600 mg at HS. Start Date: 08/16/15 Stop Date: 10/13/15 Status: Completedgabapentin 800 mg oral tablet See Instructions, 800 mg in the AM and afternoon.1600 mg at HS., # 120 tab(s), 5 Refill(s), Start Date: 02/09/15 12:11:00 CDT, Pharmacy: [place] Special Instructions: 800 mg in the AM and afternoon.1600 mg at HS. Start Date: 02/09/15 Stop Date: 08/16/15 Status: Completedgabapentin 800 mg oral tablet 1 tab(s), Oral, TID, # 90 tab(s), 0 Refill(s), Start Date: 04/12/14 15:26:56 NA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 , Pharmacy[place] Start Date: 04/12/14 Stop Date: 05/13/14 Status: Completedgabapentin 800 mg oral tablet See Instructions, 800 mg in the AM and afternoon.1600 mg at HS., # 120 tab(s), 1 Refill(s), Start Date: 10/13/15 9:47:12 CDT, Pharmacy: [place] Special Instructions: 800 mg in the AM and afternoon.1600 mg at HS. Start Date: 10/13/15 Status: Orderedglimepiride 4 mg oral tablet 1 tab(s), Oral, BID, # 60 tab(s), 2 Refill(s), Start Date: 05/13/14 15:29:19 NA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 , Pharmacy[place] Start Date: 05/13/14 Stop Date: 08/12/14 Status: Completedglimepiride 4 mg oral tablet 1 tab(s), Oral, BID, # 180 tab(s), 1 Refill(s), Start Date: 10/13/15 9:43:35 CDT , Pharmacy[place] Start Date: 10/13/15 Status: Orderedglimepiride 4 mg oral tablet 1 tab(s), Oral, BID, 0 Refill(s) Start Date: 12/24/13 Stop Date: 04/12/14 Status: Discontinuedglimepiride 4 mg oral tablet 1 tab(s), Oral, BID, # 60 tab(s), 0 Refill(s), Start Date: 04/12/14 15:26:53 NA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 , Pharmacy[place] Start Date: 04/12/14 Stop Date: 05/13/14 Status: Completedglimepiride 4 mg oral tablet 1 tab(s), Oral, BID, # 180 tab(s), 3 Refill(s), Start Date: 09/16/14 18:17:38 CDT, Pharmacy: [place] Start Date: 09/16/14 Stop Date: 10/13/15 Status: Completedglimepiride 4 mg oral tablet 1 tab(s), Oral, BID, # 60 tab(s), 3 Refill(s), Start Date: 08/12/14 17:14:45 CDT , Pharmacy: [place] Start Date: 08/12/14 Stop Date: 09/16/14 Status: Completedheparin flush 10 units/mL intravenous solution 5 mL, IV Push, As Indicated, PRN PICC Maintenance, 0 Refill(s) Start Date: 01/15/14 Stop Date: 03/05/14 Status: DiscontinuedHumaLOG 100 units/mL subcutaneous solution See Instructions, Give 3 units plus sliding scale with evening meal., # 10 mL, 0 Refill(s), Start Date: 04/26/15 16:13:00 NA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, Pharmacy: [place] Special Instructions: Give 3 units plus sliding scale with evening meal. Start Date: 04/26/15 Stop Date: 05/10/15 Status: CompletedHumaLOG 100 units/mL subcutaneous solution See Instructions, Give 3 units plus sliding scale with evening meal., # 10 mL, 5 Refill(s), Start Date: 05/10/15 7:52:00 NA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, Pharmacy: [place] Special Instructions: Give 3 units plus sliding scale with evening meal. Start Date: 05/10/15 Status: Orderedhydrochlorothiazide 12.5 mg oral tablet 1 tab(s), Oral, Daily, X 30 days, # 30 tab(s), 2 Refill(s), Start Date: 14:25:00 CDT, Pharmacy: [place] Start Date: 07/19/15 Stop Date: 08/15/15 Status: Completedhydrochlorothiazide 25 mg oral tablet 1 tab(s), Oral, Daily, # 30 tab(s), 2 Refill(s), Start Date: 08/15/15 13:53:00 CDT, Pharmacy: [place] Start Date: 08/15/15 Stop Date: 11/13/15 Status: Orderedinsulin detemir 100 units/mL subcutaneous solution See Instructions, 20 units in the AM and PM daily. 30 day supply, Levimer FlexTouch, # 1 QS, 1 Refill(s), Start Date: 04/12/14 15:26:54 NA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, Pharmacy: [place] Special Instructions: 20 units in the [...] Refill(s), Start Date: 10/11/14 9:46:52 CDT, Pharmacy: [place] Special Instructions: 20 units in the AM and PM daily. 30 day supply, Levimer FlexTouch Start Date: 10/11/14 Stop Date: 05/11/15 Status: Completedinsulin detemir 100 units/mL subcutaneous solution See Instructions, 20 units in the AM and PM daily. 30 day supply, Levimer FlexTouch, # 15 mL, 3 Refill(s), Start Date: 08/12/14 17:14:46 CDT, Pharmacy: [place] Special Instructions: 20 units in the AM and PM daily. 30 day supply, Levimer FlexTouch Start Date: 08/12/14 Stop Date: 10/11/14 Status: Completedinsulin detemir 100 units/mL subcutaneous solution See Instructions, 20 units in the AM and 30 units PM daily. 30 day supply, Levimer FlexTouch, # 15 mL, 11 Refill(s), Start Date: 05/11/15 17:34:00 NA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, Pharmacy: [place] Special Instructions: 20 units in the AM and 30 units PM daily. 30 day supply, Levimer FlexTouch Start Date: 05/11/15 Status: OrderedInsulin Pen [place] 516" 31G 100 [place], Subcutaneous, Daily, use once daily. DX 250.00. Easy touch pen needles., # 1 QS, 1 Refill(s), Pharmacy: [place], [place], Supply Special Instructions: use once daily. DX 250.00. Easy touch pen needles. Start Date: 09/07/14 Stop Date: 08/16/15 Status: DiscontinuedInsulin Pen [place] 5/16" 31G 100 [place], Subcutaneous, Daily, use daily. DX 250.00, # 1 QS, 1 Refill(s), Supply Special Instructions: use daily. DX 250.00 Start Date: 09/07/14 Stop Date: 09/07/14 Status: DiscontinuedInsulin Syringes 3/10" 31G 6mm See Instructions, Subcutaneous TID. DX E11.9. Patient states that he needs 50 unit syringes., # 300 EA, 3 Refill(s), Pharmacy: [place] , Supply Special Instructions: Subcutaneous TID. [...] tab(s), 2 Refill(s), Start Date: 05/13/14 15:29:19 NA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 , Pharmacy: [place] Start Date: 05/13/14 Stop Date: 08/12/14 Status: Completedlisinopril 40 mg oral tablet 1 tab(s), Oral, BID, 0 Refill(s) Start Date: 12/24/13 Stop Date: 01/15/14 Status: Discontinuedlisinopril 40 mg oral tablet 1 tab(s), Oral, BID, # 180 tab(s), 1 Refill(s), Start Date: 10/13/15 9:42:12 CDT , Pharmacy: [facility], [place] Start Date: 10/13/15 Status: Orderedlisinopril 40 mg oral tablet 1 tab(s), Oral, Daily, # 30 tab(s), 0 Refill(s), Start Date: 01/15/14 9:26:00 CDT, Pharmacy: [facility] Start Date: 01/15/14 Stop Date: 04/12/14 Status: Completedlisinopril 40 mg oral tablet 1 tab(s), Oral, BID, # 60 tab(s), 0 Refill(s), Start Date: 04/12/14 15:26:53 NA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 , Pharmacy: [facility], [place] Start Date: 04/12/14 Stop Date: 05/13/14 Status: Completedlisinopril 40 mg oral tablet 1 tab(s), Oral, BID, # 180 tab(s), 3 Refill(s), Start Date: 09/16/14 18:17:38 CDT, Pharmacy: [place] Start Date: 09/16/14 Stop Date: 10/13/15 Status: Completedlisinopril 40 mg oral tablet 1 tab(s), Oral, BID, # 60 tab(s), 3 Refill(s), Start Date: 08/12/14 17:14:45 CDT , Pharmacy: [place] Start Date: 08/12/14 Stop Date: 09/16/14 Status: CompletedMaxair Autohaler 0.2 mg/inh inhalation aerosol 2 puff(s), Inhale, q4hr interval, 0 Refill(s) Start Date: 12/24/13 Stop Date: 01/11/14 Status: DiscontinuedmetFORMIN 500 mg oral tablet 2 tab(s), Oral, BID, # 360 tab(s), 1 Refill(s), Start Date: 10/13/15 9:42:53 CDT , Pharmacy: [place] Start Date: 10/13/15 Status: OrderedmetFORMIN 500 mg oral tablet 2 tab(s), Oral, BID, 0 Refill(s), Start Date: 12/24/13 9:43:00 CDT Start Date: 12/24/13 Stop Date: 04/12/14 Status: DiscontinuedmetFORMIN 500 mg oral tablet 2 tab(s), Oral, BID, # 360 tab(s), 3 Refill(s), Start Date: 09/16/14 18:17:39 CDT, Pharmacy: [place] Start Date: 09/16/14 Stop Date: 10/13/15 Status: CompletedmetFORMIN 500 mg oral tablet 2 tab(s), Oral, BID, # 120 tab(s), 2 Refill(s), Start Date: 05/13/14 15:29:16 NA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, Pharmacy: [place] Start Date: 05/13/14 Stop Date: 08/12/14 Status: CompletedmetFORMIN 500 mg oral tablet 2 tab(s), Oral, BID, # 120 tab(s), 3 Refill(s), Start Date: 08/12/14 17:14:47 CDT, Pharmacy: [facility], [place] Start Date: 08/12/14 Stop Date: 09/16/14 Status: CompletedmetFORMIN 500 mg oral tablet 2 tab(s), Oral, BID, # 120 tab(s), 0 Refill(s), Start Date: 04/12/14 15:26:54 NA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, Pharmacy: [place] Start Date: 04/12/14 Stop Date: 05/13/14 Status: Completedmethocarbamol 750 mg oral tablet 1 tab(s), Oral, QID, # 120 tab(s), 0 Refill(s), Start Date: 04/12/14 15:26:53 NA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, Pharmacy: [facility] [place] Start Date: 04/12/14 Stop Date: 05/13/14 Status: Completedmethocarbamol 750 mg oral tablet 1 tab(s), Oral, QID, 0 Refill(s) Start Date: 12/24/13 Stop Date: 04/12/14 Status: Discontinuedmethocarbamol 750 mg oral tablet 1 tab(s), Oral, QID, # 120 tab(s), 2 Refill(s), Start Date: 05/13/14 15:29:20 NA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, Pharmacy: [facility] [place] Start Date: 05/13/14 Stop Date: 05/21/14 Status: DiscontinuedMetoprolol Tartrate 25 mg oral tablet 1 tab(s), Oral, BID, # 60 tab(s), 4 Refill(s), Start Date: 05/13/14 15:29:18 NA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 , Pharmacy: [facility] Start Date: 05/13/14 Stop Date: 11/04/14 Status: CompletedMetoprolol Tartrate 25 mg oral tablet 1 tab(s), Oral, BID, 0 Refill(s) Start Date: 12/24/13 Stop Date: 04/12/14 Status: DiscontinuedMetoprolol Tartrate 25 mg oral tablet 1 tab(s), Oral, BID, # 60 tab(s), 5 Refill(s), Start Date: 01/11/15 17:54:00 CDT , Pharmacy: [facility] [place] Start Date: 01/11/15 Stop Date: 08/16/15 Status: CompletedMetoprolol Tartrate 25 mg oral tablet 1 tab(s), Oral, BID, # 60 tab(s), 0 Refill(s), Start Date: 04/12/14 15:26:55 NA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 , Pharmacy: [place] Start Date: 04/12/14 Stop Date: 05/13/14 Status: CompletedMetoprolol Tartrate 25 mg oral tablet 1 tab(s), Oral, BID, Appt due in November, # 60 tab(s), 1 Refill(s), Start Date: 06/20 16:52:55 CDT, Pharmacy: [place] Special Instructions: Appt due in November Start Date: 11/04/14 Stop Date: 01/11/15 Status: CompletedMetoprolol Tartrate 25 mg oral tablet 1 tab(s), Oral, BID, # 60 tab(s), 1 Refill(s), Start Date: 08/16/15 15:37:00 CDT , Pharmacy[place] Start Date: 08/16/15 Stop Date: 10/13/15 Status: CompletedMetoprolol Tartrate 25 mg oral tablet 1 tab(s), Oral, BID, # 180 tab(s), 1 Refill(s), Start Date: 10/13/15 9:46:39 CDT , Pharmacy[place] Start Date: 10/13/15 Status: OrderedMisc Prescription Misc Prescription, See Instructions, Easy Touch pen needles 5/16, use once daily. DX E11.9, # 100 EA, 1 Refill(s), Pharmacy: [place] , Compound Special Instructions: Easy Touch [...] 0 Refill(s), Start Date: 04/09/14 13: 44:00 NA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 Special Instructions: One tablet twice daily Start Date: 04/09/14 Stop Date: 04/21/14 Status: Discontinuednabumetone 750 mg oral tablet 2 tab(s), Oral, BID, # 120 tab(s), 5 Refill(s), Start Date: 08/19/14 13:47:59 CDT, Pharmacy: [place] Start Date: 08/19/14 Stop Date: 12/09/14 Status: Completednabumetone 750 mg oral tablet 2 tab(s), Oral, BID, # 60 tab(s), 2 Refill(s), Start Date: 05/21/14 13:07:38 NA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 , Pharmacy[place] Start Date: 05/21/14 Stop Date: 08/12/14 Status: Completednabumetone 750 mg oral tablet 2 tab(s), Oral, BID, with food, # 120 tab(s), 5 Refill(s), Start Date: 06/09/15 13:54:00 NA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, Pharmacy: [place] Special Instructions: with food Start Date: 06/09/15 Status: Orderednabumetone 750 mg oral tablet 2 tab(s), Oral, BID, # 120 tab(s), 3 Refill(s), Start Date: 08/12/14 17:14:46 CDT, Pharmacy: [facility] Start Date: 08/12/14 Stop Date: 08/19/14 Status: Discontinuednabumetone 750 mg oral tablet 2 tab(s), Oral, BID, # 120 tab(s), 5 Refill(s), Start Date: 12/09/14 17:53:00 CDT, Pharmacy[place] Start Date: 12/09/14 Stop Date: 06/09/15 Status: Completednabumetone 750 mg oral tablet 2 tab(s), Oral, BID, # 60 tab(s), 2 Refill(s), Start Date: 04/21/14 10:40:00 NA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 , [place]acy[place] Start Date: 04/21/14 Stop Date: 05/21/14 [...] Start Date: 12/09/14 17:53:00 CDT , [place]acy[place] Start Date: 12/09/14 Stop Date: 06/09/15 Status: Completednortriptyline 50 mg oral capsule 3 cap(s), Oral, HS, 0 Refill(s) Start Date: 12/24/13 Stop Date: 04/12/14 Status: Discontinuednortriptyline 50 mg oral capsule 3 cap(s), Oral, HS, # 90 cap(s), 3 Refill(s), Start Date: 08/12/14 17:14:44 CDT , Pharmacy: [facility] Start Date: 08/12/14 Stop Date: 12/09/14 Status: Completednortriptyline 50 mg oral capsule 3 cap(s), Oral, HS, # 90 cap(s), 2 Refill(s), Start Date: 05/13/14 15:29:17 NA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 , Pharmacy: [facility] Start Date: 05/13/14 Stop Date: 08/12/14 Status: Completednortriptyline 50 mg oral capsule 3 cap(s), Oral, HS, # 90 cap(s), 5 Refill(s), Start Date: 06/09/15 13:54:00 NA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 , Pharmacy: [facility] Start Date: 06/09/15 Status: Orderednortriptyline 50 mg oral capsule 3 cap(s), Oral, HS, # 90 cap(s), 0 Refill(s), Start Date: 04/12/14 15:26:55 NA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 , Pharmacy: [place] Start Date: 04/12/14 Stop Date: 05/13/14 Status: Completedomeprazole 20 mg oral delayed release capsule 1 cap(s), Oral, BID, # 60 cap(s), 5 Refill(s), Start Date: 09/21/15 14:54:43 CDT , Pharmacy[place] Start Date: 09/21/15 Status: Orderedomeprazole 20 mg oral delayed release capsule 1 cap(s), Oral, BID, # 60 cap(s), 5 Refill(s), Start Date: 09/07/14 16:08:52 CDT , Pharmacy[place] Start Date: 09/07/14 Stop Date: 03/14/15 Status: Completedomeprazole 20 mg oral delayed release capsule 1 cap(s), Oral, BID, # 60 cap(s), 0 Refill(s), Start Date: 04/12/14 15:26:52 NA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 , Pharmacy[place] Start Date: 04/12/14 Stop Date: 05/13/14 Status: Completedomeprazole 20 mg oral delayed release capsule 1 cap(s), Oral, BID, # 60 cap(s), 5 Refill(s), Start Date: 03/14/15 12:04:00 NA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 , [place] Start Date: 03/14/15 Stop Date: 09/21/15 Status: Completedomeprazole 20 mg oral delayed release capsule 1 cap(s), Oral, Daily, 0 Refill(s) Start Date: 01/11/14 Stop Date: 04/12/14 Status: Discontinuedomeprazole 20 mg oral delayed release capsule 1 cap(s), Oral, BID, # 60 cap(s), 3 Refill(s), Start Date: 05/13/14 15:29:17 NA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 , [place]acy[place] Start Date: 05/13/14 Stop Date: 09/07/14 Status: CompletedPen [place] Mini 31G 5mm See Instructions, Use daily with Tresiba and Victoza. DX E11.9, # 200 EA, 1 Refill(s), Pharmacy: [place], Supply Special Instructions: Use daily with Tresiba and Victoza. DX E11.9 Start Date: 08/16/15 Status: OrderedPen [place] Mini 31G 5mm See Instructions, Use daily with Tresiba and Victoza, # 200 EA, 1 Refill(s), Supply Special Instructions: Use daily with Tresiba and Victoza Start Date: 08/16/15 Stop Date: 08/16/15 Status: DiscontinuedPneumovax 23 injectable solution See Instructions, IM ONETIME as directed, # 1 EA, 0 Refill(s), Start Date: 03/05 15:22:00 CDT, Pharmacy: [place] Special Instructions: IM ONETIME as directed Start Date: 03/05/14 Stop Date: 08/19/14 Status: DiscontinuedPneumovax 23 injectable solution 0.5 mL, IM, ONETIME, # 1 mL, 0 Refill(s), Start Date: 03/05/14 15:20:00 CDT Start Date: 03/05/14 Stop Date: 03/05/14 Status: DiscontinuedPristiq 100 mg oral tablet, extended release 1 tab(s), Oral, Daily, # 30 tab(s), 5 Refill(s), Start Date: 12/09/14 17:53:00 CDT, Pharmacy[place] Start Date: 12/09/14 Stop Date: 06/09/15 Status: CompletedPristiq 100 mg oral tablet, extended release 1 tab(s), Oral, Daily, # 30 tab(s), 2 Refill(s), Start Date: 05/13/14 15:29:16 NA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, Pharmacy[place] Start Date: 05/13/14 Stop Date: 08/12/14 Status: CompletedPristiq 100 mg oral tablet, extended release 1 tab(s), Oral, Daily, # 30 tab(s), 5 Refill(s), Start Date: 06/09/15 13:54:00 NA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, Pharmacy[place] Start Date: 06/09/15 Status: OrderedPristiq 100 mg oral tablet, extended release 1 tab(s), Oral, Daily, # 30 tab(s), 0 Refill(s) Start Date: 01/11/14 Stop Date: 04/12/14 Status: DiscontinuedPristiq 100 mg oral tablet, extended release 1 tab(s), Oral, Daily, # 30 tab(s), 0 Refill(s), Start Date: 04/12/14 15:26:54 NA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, Pharmacy[place] Start Date: 04/12/14 Stop Date: 05/13/14 Status: CompletedPristiq 100 mg oral tablet, extended release 1 tab(s), Oral, Daily, # 30 tab(s), 3 Refill(s), Start Date: 08/12/14 17:14:47 CDT, Pharmacy[place] Start Date: 08/12/14 Stop Date: 12/09/14 Status: CompletedPristiq 50 mg oral tablet, extended release 2 tab(s), Oral, Daily, 0 Refill(s) Start Date: 12/24/13 Stop Date: 01/11/14 Status: DiscontinuedSenokot S 50 mg-8.6 mg oral tablet 1 tab(s), Oral, BID, X 7 days, # 14 tab(s), 0 Refill(s), Pharmacy: [place] Start Date: 01/15/14 Stop Date: 01/22/14 Status: CompletedSuprep Bowel Prep Kit oral liquid 1 kit(s), Oral, ONETIME, # 1 kit(s), 0 Refill(s), Start Date: 04/12/15 8:52:00 NA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, Pharmacy[place] Start Date: 04/12/15 Stop Date: 05/26/15 Status: CompletedSuprep Bowel Prep Kit oral liquid 1 bottles, Oral, BID, Mix 1 btl to 16oz water and drink. Next morning; repeat use second btl. Complete at least 1 hr before colonscopy., # 1 kit(s), 0 Refill (s), Start Date: 04/12/15 8:38:00 NA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, Pharmacy[place] Special Instructions: Mix 1 btl to 16oz water and drink. Next morning; repeat use second btl. Complete at least 1 hr before colonscopy. Start Date: 04/12/15 Stop Date: 04/13/15 Status: CompletedTest Strips Other (See Comment) 3 Month Supply, Subcutaneous, TID, Truetest glucose test strips. DX 250.00, # 1 QS, 1 Refill(s), Pharmacy: [place], [place], Supply Special Instructions: Truetest glucose test strips. DX 250.00 Start Date: 05/13/14 Stop Date: 12/16/14 Status: CompletedTest Strips Other (See Comment) 3 Month Supply, Subcutaneous, TID, Truetest glucose test strips. DX E11.9, # 300 EA, 1 Refill(s), Pharmacy: [place], [place], Supply Special Instructions: Truetest glucose test [...] 250.00, # 1 QS, 1 Refill(s), Pharmacy: [place], Supply Special Instructions: Truetest glucose test strips. DX 250.00 Start Date: 12/16/14 Stop Date: 02/09/15 Status: CompletedtraMADol 50 mg oral tablet 1 tab(s), Oral, q6hr interval, PRN pain moderate 4-7, # 60 tab(s), 1 Refill(s), Start Date: 05/21/14 13:07:39 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, Pharmacy: [place] Start Date: 05/21/14 Stop Date: 05/24/15 [...] Start Date: 10/13/15 9:45: 32 CDT, Pharmacy: [place] Start Date: 10/13/15 Status: OrderedTresiba FlexTouch 200 units/mL subcutaneous solution See Instructions, 50 units Subcutaneous Daily, # 1 EA, 2 Refill(s), Start Date: 07/19/15 14:26:00 CDT, Pharmacy: [place] Special Instructions: 50 units Subcutaneous Daily [...] cap(s), 2 Refill(s), Start Date: 05/13/14 15:29:20 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 , Pharmacy: [place] Start Date: 05/13/14 Stop Date: 08/12/14 Status: Completedursodiol 300 mg oral capsule 1 cap(s), Oral, TID, # 90 cap(s), 5 Refill(s), Start Date: 06/09/15 13:54:00 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 , Pharmacy: [place] Start Date: 06/09/15 Stop Date: 12/06/15 Status: Orderedursodiol 300 mg oral capsule 1 cap(s), Oral, TID, # 90 cap(s), 5 Refill(s), Start Date: 12/09/14 17:53:00 CDT , Pharmacy: [place] Start Date: 12/09/14 Stop Date: 06/09/15 Status: Completedursodiol 300 mg oral capsule 1 cap(s), Oral, TID, # 90 cap(s), 3 Refill(s), Start Date: 08/12/14 17:14:47 CDT , Pharmacy: [place] Start Date: 08/12/14 Stop Date: 12/09/14 Status: Completedursodiol 300 mg oral capsule 1 cap(s), Oral, TID, # 90 cap(s), 0 Refill(s), Start Date: 04/12/14 15:26:52 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 , Pharmacy: [place] Start Date: 04/12/14 Stop Date: 05/13/14 [...] Refill(s), Start Date: 07/27/14 12:14:00 CDT, Pharmacy: [place] Special Instructions: 0.6 mg daily for 7 days then increase to 1.2 mg daily. Start Date: 07/27/14 Stop Date: 11/16/14 Status: CompletedVictoza 18 mg/3 mL subcutaneous solution 1.2 mg, Subcutaneous, Daily, # 1 QS, 5 Refill(s), Start Date: 11/16/14 15:52:54 CDT, Pharmacy: [place] Start Date: 11/16/14 Stop Date: 03/30/15 Status: DiscontinuedVictoza 18 mg/3 mL subcutaneous solution 1.8 mg, Subcutaneous, Daily, # 1 QS, 5 Refill(s), Start Date: 03/30/15 11:25:28 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, Pharmacy: [place] Start Date: 03/30/15 Stop Date: 09/26/15 Status: OrderedVitamin D3 1000 intl units oral tablet 1 tab(s), Oral, Daily, # 30 tab(s), 0 Refill(s), Start Date: 05/24/15 11:56:00 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 Start Date: 05/24/15 Status: OrderedZostavax subcutaneous injection See Instructions, Subcutaneous ONETIME as directed, # 1 EA, 0 Refill(s), Start Date: 03/05/14 15:20:00 CDT, Pharmacy: [facility] [place] [place] Special Instructions: Subcutaneous ONETIME as directed [...] of vocal cord6 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
--- OUTSIDE RECORDS SUMMARY | 2016-08-31 11:08 | XMS REPORT | Summary of Care ---
:1955 Author Organization [facility] Address [address] [place] [address] [address] [place] [address] Care Team Providers Name Role Phone Wilson, Mathieu James Primary Care Physician Encounter Date(s): 06/22/16 - 06/22/16 [facility] [address] [place] [address] [address] [place] [address]- Discharge Diagnosis: Hyperplastic colon polyp Discharge Diagnosis: Internal hemorrhoids Discharge Diagnosis: Tubular adenoma of colon Discharge Disposition: 01 Discharged to Home or Self Care Attending Physician: NELLY Maria Referring Physician: Clemente Herrera DO Vital Signs Most recent to oldest [Reference Range]: 1 Peripheral Pulse Rate [60-100 bpm] 75 bpm (06/22/16 9:47 AM) Blood Pressure [90-130/60-90 mmHg] 151/89mmHg *HI* (06/22/16 9:47 AM) Mean Arterial Pressure, Cuff 110 mmHg (06/22/16 9:47 AM) Most recent to oldest [Reference Range]: 1 Height/Length Measured 185 cm (06/22/16 9:47 AM) Weight Dosing 158.5 kg (06/22/16 9:47 AM) Weight Measured 158.5 kg (06/22/16 9:47 AM) BSA Measured 2.72 m2 (06/22/16 9:47 AM) Body Mass Index Measured 46.31 kg/m2 (06/22/16 9:47 AM) Problem List Condition Effective Dates Status Health Status Informant Anxiety(Confirmed) Active Chronic back pain(Confirmed) Active BPH - Benign prostatic Active hypertrophy(Confirmed) Chronic pain(Confirmed) Active COPD(Confirmed) Active Generalized osteoarthritis(Confirmed) Active Depression(Confirmed) Active Diabetes mellitus type 2(Confirmed) Active Esophageal reflux(Confirmed) Active Hyperlipidemia(Confirmed) Active Hypertension(Confirmed) Active Hypertriglyceridemia(Confirmed) Active Hypothyroidism, unspecified(Confirmed) Active Impaired mobility(Confirmed) Active Impotence of organic origin(Confirmed) Active Chronic joint pain(Confirmed) Active Morbid (severe) obesity due to excess Active calories(Confirmed) MRSA(Confirmed) Active Neuropathic pain(Confirmed) Active Obesity(Confirmed) Active Unsteady gait(Confirmed) Active Vitamin D deficiency, Active unspecified(Confirmed) Allergies, Adverse Reactions, Alerts Substance Reaction Severity Status penicillins [id number] 19:24:09<$> Active Tape rash Severe Active Medications albuterol CFC free 90 mcg/inh inhalation aerosol 2 puff(s), Inhale, q4hr, PRN shortness of breath or wheezing, # 1 EA, 0 Refill(s ), Pharmacy: [place] Start Date: 01/15/14 Stop Date: 02/14/14 Status: OrderedamLODIPine 10 mg oral tablet 1 tab(s), Oral, Daily, dose increase, # 30 tab(s), 5 Refill(s), Start Date: 02/18 13:20:00 [employer], Pharmacy: [place] Special Instructions: dose increase Start Date: 03/15/16 Status: OrderedamLODIPine 5 mg oral tablet 1 tab(s), Oral, Daily, # 90 tab(s), 1 Refill(s), Start Date: 10/13/15 9:44:20 CDT, Pharmacy: [place] Start Date: 10/13/15 Stop Date: 03/15/16 Status: DiscontinuedamLODIPine 5 mg oral tablet 1 tab(s), Oral, Daily, X 30 days, # 30 tab(s), 2 Refill(s), Start Date: 13:13:00 [employer], Pharmacy: [place] Start Date: 03/30/15 Stop Date: 07/12/15 Status: CompletedamLODIPine 5 mg oral tablet 1 tab(s), Oral, Daily, X 30 days, # 30 tab(s), 1 Refill(s), Start Date: 12:04:00 [employer], Pharmacy: [place] Start Date: 07/12/15 Stop Date: 10/13/15 Status: CompletedByetta Prefilled Pen 5 mcg/0.02 mL subcutaneous solution 0.02, Subcutaneous, BID, 0 Refill(s) Start Date: 12/24/13 Stop Date: 04/12/14 Status: DiscontinuedByetta Prefilled Pen 5 mcg/0.02 mL subcutaneous solution 5 mcg, Subcutaneous, BID, 30 day supply, # 1 QS, 2 Refill(s), Start Date: 11:25:24 [employer], Pharmacy: [place] Special Instructions: insurance refused coverage--switched to Victoza Start Date: 06/18/14 Stop Date: 07/27/14 Status: DiscontinuedByetta Prefilled Pen 5 mcg/0.02 mL subcutaneous solution 0.02, Subcutaneous, BID, 30 day supply, # 1 QS, 0 Refill(s), Start Date: 15:26:54 [employer], Pharmacy: [place] Special Instructions: 30 day supply Start Date: 04/12/14 Stop Date: 06/18/14 Status: CompletedCentrum Silver oral tablet 1 tab(s), Oral, Daily, 0 Refill(s) Start Date: 01/10/14 Stop Date: 01/11/14 Status: Discontinuedcephalexin 250 mg oral capsule 1 cap(s), Oral, QID, # 40 cap(s), 0 Refill(s), Start Date: 08/15/15 14:16:00 CDT , Pharmacy: [place] Start Date: 08/15/15 Stop Date: 01/06/16 Status: Completedcholecalciferol 50,000 intl units oral capsule 1 cap(s), Oral, q7day, # 8 cap(s), 0 Refill(s), Start Date: 08/23/14 8:17:00 CDT , Pharmacy: [place] Start Date: 08/23/14 Stop Date: 05/24/15 Status: CompletedCialis 20 mg oral tablet 0.5 tab(s), Oral, Daily, # 8 tab(s), 0 Refill(s), Start Date: 02/19/14 10:47:00 CDT, samples given to patient (Rx), [id number], 08/04/14 Start Date: 02/19/14 Stop Date: 08/19/14 Status: DiscontinuedCialis 20 mg oral tablet 0.5 tab(s), Oral, Daily, # 8 tab(s), 0 Refill(s), Start Date: 08/19/14 13:49:20 CDT, Pharmacy: [place], [id number], 08/04/14 Start Date: 08/19/14 Stop Date: 05/24/15 Status: CompletedCialis 5 mg oral tablet 1 tab(s), Oral, Daily, PRN for erectile dysfunction, # 30 tab(s), 0 Refill(s), samples given to patient (Rx), [id number], 04/05/16 Start Date: 12/24/13 Stop Date: 03/05/14 Status: DiscontinuedCipro 500 mg oral tablet 1 tab(s), Oral, q12hr, # 20 tab(s), 0 Refill(s), Start Date: 09/26/15 13:39:00 CDT, Pharmacy: [place] Start Date: 09/26/15 Stop Date: 10/12/15 Status: CompletedCipro 500 mg oral tablet 1 tab(s), Oral, q12hr, # 28 tab(s), 0 Refill(s), Start Date: 10/12/15 10:51:00 CDT, Pharmacy: [place] Start Date: 10/12/15 Stop Date: 01/06/16 Status: Completedciprofloxacin pt unsure of dose, 0 Refill(s) Special [...] Start Date: 09/26/15 13:39:00 CDT , Pharmacy: [facility], [place] Start Date: 09/26/15 Stop Date: 10/12/15 Status: Completedcranberry oral tablet 1 tab, Oral, Daily, 0 Refill(s), Start Date: 05/16/16 7:33:00 [employer] Start Date: 05/16/16 Status: Orderedcyclobenzaprine 5 mg oral tablet 1 tab(s), Oral, TID, # 90 tab(s), 3 Refill(s), Start Date: 07/13/14 10:47:23 CDT , Pharmacy: [facility], [place] Start Date: 07/13/14 Stop Date: 11/04/14 Status: Completedcyclobenzaprine 5 mg oral tablet 1 tab(s), Oral, TID, X 30 days, # 90 tab(s), 1 Refill(s), Start Date: 05/21/14 13:15:00 [employer], Pharmacy: [facility], [place] Start Date: 05/21/14 Stop Date: 07/13/14 Status: Completedcyclobenzaprine 5 mg oral tablet 1 tab(s), Oral, TID, # 90 tab(s), 5 Refill(s), Start Date: 03/14/15 12:04:00 [employer] , Pharmacy: [facility], [place] Start Date: 03/14/15 Stop Date: 11/16/15 Status: Completedcyclobenzaprine 5 mg oral tablet 1 tab(s), Oral, TID, # 90 tab(s), 5 Refill(s), Start Date: 11/16/15 16:28:38 CDT , Pharmacy: [place] Start Date: 11/16/15 Status: Orderedcyclobenzaprine 5 mg oral tablet 1 tab(s), Oral, TID, # 90 tab(s), 3 Refill(s), Start Date: 11/04/14 16:52:55 CDT , Pharmacy: [facility], [place] Start Date: 11/04/14 Stop Date: 03/14/15 Status: Completedesomeprazole 20 mg oral delayed release capsule cap(s), Oral, Daily, 0 Refill(s) Start Date: 12/24/13 Stop Date: 01/11/14 Status: Discontinuedfenofibrate 145 mg oral tablet 1 tab(s), Oral, Daily, # 30 tab(s), 5 Refill(s), Start Date: 12/19/15 14:20:40 CDT, Pharmacy: [facility], [place] Start Date: 12/19/15 Stop Date: 06/13/16 Status: Completedfenofibrate 145 mg oral tablet 1 tab(s), Oral, Daily, # 30 tab(s), 2 Refill(s), Start Date: 05/13/14 15:29:18 [employer], Pharmacy: [place] Start Date: 05/13/14 Stop Date: 08/12/14 Status: Completedfenofibrate 145 mg oral tablet 1 tab(s), Oral, Daily, # 30 tab(s), 0 Refill(s), Start Date: 04/12/14 15:26:55 [employer], Pharmacy: [facility], [place] Start Date: 04/12/14 Stop Date: 05/13/14 Status: Completedfenofibrate 145 mg oral tablet 1 tab(s), Oral, Daily, 0 Refill(s) Start Date: 01/11/14 Stop Date: 04/12/14 Status: Discontinuedfenofibrate 145 mg oral tablet 1 tab(s), Oral, Daily, # 30 tab(s), 5 Refill(s), Start Date: 12/09/14 17:53:00 CDT, Pharmacy: [facility], [place] Start Date: 12/09/14 Stop Date: 06/09/15 Status: Completedfenofibrate 145 mg oral tablet 1 tab(s), Oral, Daily, # 30 tab(s), 5 Refill(s), Start Date: 06/09/15 13:54:00 [employer], Pharmacy: [facility], [place] Start Date: 06/09/15 Stop Date: 12/19/15 Status: Completedfenofibrate 145 mg oral tablet 1 tab(s), Oral, Daily, # 30 tab(s), 5 Refill(s), Start Date: 06/13/16 11:22:46 [employer], Pharmacy: [facility], [place] Start Date: 06/13/16 Status: Orderedfenofibrate 145 mg oral tablet 1 tab(s), Oral, Daily, # 30 tab(s), 3 Refill(s), Start Date: 08/12/14 17:14:48 CDT, Pharmacy: [place] Start Date: 08/12/14 Stop Date: 12/09/14 Status: Completedfenofibrate 54 mg oral tablet 1 tab(s), Oral, HS, 0 Refill(s) Start Date: 01/10/14 Stop Date: 01/11/14 Status: Discontinuedfluticasone 50 mcg/inh nasal spray 1 spray(s), Nasal, BID, PRN allergy symptoms, X 30 days, # 1 EA, 5 Refill(s), Start Date: 12/19/15 14:22:29 CDT, Pharmacy: [place] Start Date: 12/19/15 Stop Date: 06/13/16 Status: Completedfluticasone 50 mcg/inh nasal spray 1-2 spray(s), Nasal, Daily, 0 Refill(s) Start Date: 12/24/13 Stop Date: 01/11/14 Status: Discontinuedfluticasone 50 mcg/inh nasal spray 1 spray(s), Nasal, BID, PRN allergy symptoms, X 30 days, # 1 EA, 5 Refill(s), Start Date: 06/02/15 13:11:00 [employer], Pharmacy: [place] Start Date: 06/02/15 Stop Date: 12/19/15 Status: Completedfluticasone 50 mcg/inh nasal spray 1 puff(s), Nasal, Daily, # 1 EA, 0 Refill(s), Pharmacy: [place] Start Date: 01/15/14 Stop Date: 08/19/14 Status: Discontinuedfluticasone 50 mcg/inh nasal spray 1 spray(s), Nasal, BID, PRN allergy symptoms, # 1 EA, 5 Refill(s), Start Date: 06/13/16 11:25:06 [employer], Pharmacy: [place] Start Date: 06/13/16 Stop Date: 12/10/16 Status: Orderedgabapentin 800 mg oral tablet See Instructions, Take 1 tab in the morning and 1 tab in the afternoon and 2 tabs HS., # 120 tab(s), 5 Refill(s), Start Date: 12/19/15 14:18:45 CDT, Pharmacy : [place] Special Instructions: Take 1 tab in the morning and 1 tab in the afternoon and 2 tabs HS. Start Date: 12/19/15 Stop Date: 06/13/16 Status: Completedgabapentin 800 mg oral tablet See Instructions, 800 mg in the AM and afternoon.1600 mg at HS., # 1 QS, 4 Refill(s), Start Date: 05/13/14 15:29:17 [employer], Pharmacy: [place] Special Instructions: 800 mg in the [...] Refill(s), Start Date: 08/16/15 15:37:00 CDT, Pharmacy: [place] Special Instructions: 800 mg in the AM and afternoon.1600 mg at HS. Start Date: 08/16/15 Stop Date: 10/13/15 Status: Completedgabapentin 800 mg oral tablet See Instructions, 800 mg in the AM and afternoon.1600 mg at HS., # 120 tab(s), 5 Refill(s), Start Date: 02/09/15 12:11:00 CDT, Pharmacy: [place] Special Instructions: 800 mg in the AM and afternoon.1600 mg at HS. Start Date: 02/09/15 Stop Date: 08/16/15 Status: Completedgabapentin 800 mg oral tablet See Instructions, Take 1 tab in the morning and 1 tab in the afternoon and 2 tabs HS., # 120 tab(s), 5 Refill(s), Start Date: 06/13/16 11:25:31 [employer], Pharmacy : [place] Special Instructions: Take 1 tab in the morning and 1 tab in the afternoon and 2 tabs HS. Start Date: 06/13/16 Status: Orderedgabapentin 800 mg oral tablet 1 tab(s), Oral, TID, # 90 tab(s), 0 Refill(s), Start Date: 04/12/14 15:26:56 [employer] , Pharmacy: [place] Start Date: 04/12/14 Stop Date: 05/13/14 Status: Completedgabapentin 800 mg oral tablet See Instructions, 800 mg in the AM and afternoon.1600 mg at HS., # 120 tab(s), 1 Refill(s), Start Date: 10/13/15 9:47:12 CDT, Pharmacy: [place] Special Instructions: 800 mg in the AM and afternoon.1600 mg at HS. Start Date: 10/13/15 Stop Date: 12/19/15 Status: Completedglimepiride 4 mg oral tablet 1 tab(s), Oral, BID, # 60 tab(s), 2 Refill(s), Start Date: 05/13/14 15:29:19 [employer] , Pharmacy: [place] Start Date: 05/13/14 Stop Date: 08/12/14 Status: Completedglimepiride 4 mg oral tablet 1 tab(s), Oral, BID, # 180 tab(s), 1 Refill(s), Start Date: 10/13/15 9:43:35 CDT , Pharmacy: [place] Start Date: 10/13/15 Stop Date: 04/10/16 Status: Completedglimepiride 4 mg oral tablet 1 tab(s), Oral, BID, 0 Refill(s) Start Date: 12/24/13 Stop Date: 04/12/14 Status: Discontinuedglimepiride 4 mg oral tablet 1 tab(s), Oral, BID, # 60 tab(s), 0 Refill(s), Start Date: 04/12/14 15:26:53 [employer] , Pharmacy: [place] Start Date: 04/12/14 Stop Date: 05/13/14 Status: Completedglimepiride 4 mg oral tablet 1 tab(s), Oral, BID, # 180 tab(s), 3 Refill(s), Start Date: 09/16/14 18:17:38 CDT, Pharmacy: [place] Start Date: 09/16/14 Stop Date: 10/13/15 Status: Completedglimepiride 4 mg oral tablet 1 tab(s), Oral, BID, # 180 tab(s), 1 Refill(s), Start Date: 04/10/16 10:45:43 [employer], Pharmacy: [place] Start Date: 04/10/16 Status: Orderedglimepiride 4 mg oral tablet 1 tab(s), Oral, BID, # 60 tab(s), 3 Refill(s), Start Date: 08/12/14 17:14:45 CDT , Pharmacy: [place] Start Date: 08/12/14 Stop Date: 09/16/14 Status: CompletedGoLYTELY oral powder for reconstitution See Instructions, as directed on package labeling, # 4,000 mL, 0 Refill(s), Start Date: 03/14/16 16:49:00 [employer], Pharmacy: [place] Special Instructions: as directed on package labeling Start Date: 03/14/16 Stop Date: 06/14/16 Status: CompletedGoLYTELY oral powder for reconstitution See Instructions, 240 mL Oral Daily, # 4,000 mL, 0 Refill(s), Start Date: 7:40:00 [employer], Pharmacy: [place] Special Instructions: 240 mL Oral Daily Start Date: 06/14/16 Stop Date: 06/15/16 Status: CompletedGoLYTELY oral powder for reconstitution See Instructions, 240 mL Oral q10min, # 4,000 mL, 0 Refill(s), Start Date: 05/17 9:17:00 [employer], Pharmacy: [place] Special Instructions: 240 mL Oral q10min Start Date: 05/17/16 Stop Date: 06/14/16 Status: Completedheparin flush 10 units/mL intravenous solution 5 mL, IV Push, As Indicated, PRN PICC Maintenance, 0 Refill(s) Start Date: 01/15/14 Stop Date: 03/05/14 Status: DiscontinuedHumaLOG 100 units/mL subcutaneous solution See Instructions, Give 3 units plus sliding scale with evening meal., # 10 mL, 0 Refill(s), Start Date: 04/26/15 16:13:00 [employer], Pharmacy: [place] Special Instructions: Give 3 units plus sliding scale with evening meal. Start Date: 04/26/15 Stop Date: 05/10/15 Status: CompletedHumaLOG 100 units/mL subcutaneous solution See Instructions, Give 3 units plus sliding scale with evening meal., # 10 mL, 5 Refill(s), Start Date: 05/10/15 7:52:00 [employer], Pharmacy: [place] Special Instructions: Give 3 units plus sliding scale with evening meal. Start Date: 05/10/15 Status: Orderedhydrochlorothiazide 12.5 mg oral tablet 1 tab(s), Oral, Daily, X 30 days, # 30 tab(s), 2 Refill(s), Start Date: 14:25:00 CDT, Pharmacy: [place] Start Date: 07/19/15 Stop Date: 08/15/15 Status: Completedhydrochlorothiazide 25 mg oral tablet 1 tab(s), Oral, Daily, # 30 tab(s), 2 Refill(s), Start Date: 08/15/15 13:53:00 CDT, Pharmacy: [place] Start Date: 08/15/15 Stop Date: 11/13/15 Status: Orderedinsulin detemir 100 units/mL subcutaneous solution See Instructions, 20 units in the AM and 30 units PM daily. 30 day supply, Levimer FlexTouch, # 15 mL, 5 Refill(s), Start Date: 01/23/16 17:08:05 CDT, Pharmacy: [place] Special Instructions: 20 units in the AM and 30 units PM daily. 30 day supply, Levimer FlexTouch Start Date: 01/23/16 Stop Date: 05/16/16 Status: Completedinsulin detemir 100 units/mL subcutaneous solution See Instructions, 20 units in the AM and PM daily. 30 day supply, Levimer FlexTouch, # 1 QS, 1 Refill(s), Start Date: 04/12/14 15:26:54 [employer], Pharmacy: [place] Special Instructions: 20 units in the [...] Refill(s), Start Date: 10/11/14 9:46:52 CDT, Pharmacy: [place] Special Instructions: 20 units in the AM and PM daily. 30 day supply, Levimer FlexTouch Start Date: 10/11/14 Stop Date: 05/11/15 Status: Completedinsulin detemir 100 units/mL subcutaneous solution See Instructions, 20 units in the AM and PM daily. 30 day supply, Levimer FlexTouch, # 15 mL, 3 Refill(s), Start Date: 08/12/14 17:14:46 CDT, Pharmacy: [place] Special Instructions: 20 units in the AM and PM daily. 30 day supply, Levimer FlexTouch Start Date: 08/12/14 Stop Date: 10/11/14 Status: Completedinsulin detemir 100 units/mL subcutaneous solution See Instructions, 20 units in the AM and 30 units PM daily. 30 day supply, Levimer FlexTouch, # 15 mL, 11 Refill(s), Start Date: 05/11/15 17:34:00 [employer], Pharmacy: [place] Special Instructions: 20 units in the AM and 30 units PM daily. 30 day supply, Levimer FlexTouch Start Date: 05/11/15 Stop Date: 01/23/16 Status: CompletedInsulin Pen [place] 09/18" 31G 100 [place], Subcutaneous, Daily, use once daily. DX 250.00. Easy touch pen needles., # 1 QS, 1 Refill(s), Pharmacy: [place], [place], Supply Special Instructions: use once daily. DX 250.00. Easy touch pen needles. Start Date: 09/07/14 Stop Date: 08/16/15 Status: DiscontinuedInsulin Pen [place] 09/18" 31G 100 [place], Subcutaneous, Daily, use daily. DX 250.00, # 1 QS, 1 Refill(s), Supply Special Instructions: use daily. DX 250.00 Start Date: 09/07/14 Stop Date: 09/07/14 Status: DiscontinuedInsulin Syringes 3/10" 31G 6mm See Instructions, Subcutaneous TID. DX E11.9. Patient states that he needs 50 unit syringes., # 300 EA, 3 Refill(s), Pharmacy: [place] , Supply Special Instructions: Subcutaneous TID. [...] Start Date: 01/11/14 Stop Date: 01/15/14 Status: DiscontinuedLipitor 20 mg oral tablet 1 tab(s), Oral, Daily, # 30 tab(s), 5 Refill(s), Start Date: 03/15/16 13:21:00 [employer], Pharmacy: [place] Start Date: 03/15/16 Status: Orderedlisinopril 40 mg oral tablet 1 tab(s), Oral, BID, # 60 tab(s), 2 Refill(s), Start Date: 05/13/14 15:29:19 [employer] , Pharmacy: [place] Start Date: 05/13/14 Stop Date: 08/12/14 Status: Completedlisinopril 40 mg oral tablet 1 tab(s), Oral, BID, 0 Refill(s) Start Date: 12/24/13 Stop Date: 01/15/14 Status: Discontinuedlisinopril 40 mg oral tablet 1 tab(s), Oral, BID, # 180 tab(s), 1 Refill(s), Start Date: 10/13/15 9:42:12 CDT , Pharmacy: [place] Start Date: 10/13/15 Stop Date: 04/10/16 Status: Completedlisinopril 40 mg oral tablet 1 tab(s), Oral, Daily, # 30 tab(s), 0 Refill(s), Start Date: 01/15/14 9:26:00 CDT, Pharmacy: [place] Start Date: 01/15/14 Stop Date: 04/12/14 Status: Completedlisinopril 40 mg oral tablet 1 tab(s), Oral, BID, # 60 tab(s), 0 Refill(s), Start Date: 04/12/14 15:26:53 [employer] , Pharmacy: [facility], [place] Start Date: 04/12/14 Stop Date: 05/13/14 Status: Completedlisinopril 40 mg oral tablet 1 tab(s), Oral, BID, # 180 tab(s), 3 Refill(s), Start Date: 09/16/14 18:17:38 CDT, Pharmacy: [facility], [place] Start Date: 09/16/14 Stop Date: 10/13/15 Status: Completedlisinopril 40 mg oral tablet 1 tab(s), Oral, BID, # 180 tab(s), 1 Refill(s), Start Date: 04/10/16 10:44:40 [employer], Pharmacy: [facility], [place] Start Date: 04/10/16 Status: Orderedlisinopril 40 mg oral tablet 1 tab(s), Oral, BID, # 60 tab(s), 3 Refill(s), Start Date: 08/12/14 17:14:45 CDT , Pharmacy: [facility], [place] Start Date: 08/12/14 Stop Date: 09/16/14 Status: CompletedMaxair Autohaler 0.2 mg/inh inhalation aerosol 2 puff(s), Inhale, q4hr interval, 0 Refill(s) Start Date: 12/24/13 Stop Date: 01/11/14 Status: DiscontinuedmetFORMIN 500 mg oral tablet 2 tab(s), Oral, BID, # 360 tab(s), 1 Refill(s), Start Date: 10/13/15 9:42:53 CDT , Pharmacy: [place] Start Date: 10/13/15 Stop Date: 04/10/16 Status: CompletedmetFORMIN 500 mg oral tablet 2 tab(s), Oral, BID, 0 Refill(s), Start Date: 12/24/13 9:43:00 CDT Start Date: 12/24/13 Stop Date: 04/12/14 Status: DiscontinuedmetFORMIN 500 mg oral tablet 2 tab(s), Oral, BID, # 360 tab(s), 3 Refill(s), Start Date: 09/16/14 18:17:39 CDT, Pharmacy: [place] Start Date: 09/16/14 Stop Date: 10/13/15 Status: CompletedmetFORMIN 500 mg oral tablet 2 tab(s), Oral, BID, # 360 tab(s), 1 Refill(s), Start Date: 04/10/16 10:45:17 [employer], Pharmacy: [place] Start Date: 04/10/16 Status: OrderedmetFORMIN 500 mg oral tablet 2 tab(s), Oral, BID, # 120 tab(s), 2 Refill(s), Start Date: 05/13/14 15:29:16 [employer], Pharmacy[place] Start Date: 05/13/14 Stop Date: 08/12/14 Status: CompletedmetFORMIN 500 mg oral tablet 2 tab(s), Oral, BID, # 120 tab(s), 3 Refill(s), Start Date: 08/12/14 17:14:47 CDT, Pharmacy: [place] Start Date: 08/12/14 Stop Date: 09/16/14 Status: CompletedmetFORMIN 500 mg oral tablet 2 tab(s), Oral, BID, # 120 tab(s), 0 Refill(s), Start Date: 04/12/14 15:26:54 [employer], Pharmacy: [place] Start Date: 04/12/14 Stop Date: 05/13/14 Status: Completedmethocarbamol 750 mg oral tablet 1 tab(s), Oral, QID, # 120 tab(s), 0 Refill(s), Start Date: 04/12/14 15:26:53 [employer], Pharmacy: [facility], [place] Start Date: 04/12/14 Stop Date: 05/13/14 Status: Completedmethocarbamol 750 mg oral tablet 1 tab(s), Oral, QID, 0 Refill(s) Start Date: 12/24/13 Stop Date: 04/12/14 Status: Discontinuedmethocarbamol 750 mg oral tablet 1 tab(s), Oral, QID, # 120 tab(s), 2 Refill(s), Start Date: 05/13/14 15:29:20 [employer], Pharmacy: [facility], [place] Start Date: 05/13/14 Stop Date: 05/21/14 Status: DiscontinuedMetoprolol Tartrate 25 mg oral tablet 1 tab(s), Oral, BID, # 60 tab(s), 4 Refill(s), Start Date: 05/13/14 15:29:18 [employer] , Pharmacy: [facility], [place] Start Date: 05/13/14 Stop Date: 11/04/14 Status: CompletedMetoprolol Tartrate 25 mg oral tablet 1 tab(s), Oral, BID, 0 Refill(s) Start Date: 12/24/13 Stop Date: 04/12/14 Status: DiscontinuedMetoprolol Tartrate 25 mg oral tablet 1 tab(s), Oral, BID, # 60 tab(s), 5 Refill(s), Start Date: 01/11/15 17:54:00 CDT , Pharmacy: [facility], [place] Start Date: 01/11/15 Stop Date: 08/16/15 Status: CompletedMetoprolol Tartrate 25 mg oral tablet 1 tab(s), Oral, BID, # 60 tab(s), 0 Refill(s), Start Date: 04/12/14 15:26:55 [employer] , Pharmacy: [facility], [place] Start Date: 04/12/14 Stop Date: 05/13/14 Status: CompletedMetoprolol Tartrate 25 mg oral tablet 1 tab(s), Oral, BID, Appt due in November, # 60 tab(s), 1 Refill(s), Start Date: 06/20 16:52:55 CDT, Pharmacy: [place] Special Instructions: Appt due in November Start Date: 11/04/14 Stop Date: 01/11/15 Status: CompletedMetoprolol Tartrate 25 mg oral tablet 1 tab(s), Oral, BID, # 60 tab(s), 1 Refill(s), Start Date: 08/16/15 15:37:00 CDT , Pharmacy[place] Start Date: 08/16/15 Stop Date: 10/13/15 Status: CompletedMetoprolol Tartrate 25 mg oral tablet 1 tab(s), Oral, BID, # 180 tab(s), 1 Refill(s), Start Date: 10/13/15 9:46:39 CDT , Pharmacy: [place] Start Date: 10/13/15 Stop Date: 12/27/15 Status: DiscontinuedMetoprolol Tartrate 50 mg oral tablet 1 tab(s), Oral, BID, DOSE INCREASE, # 180 tab(s), 3 Refill(s), Start Date: 12/26 11:07:00 CDT, Pharmacy: [place] Special Instructions: DOSE INCREASE Start Date: 12/27/15 Status: OrderedMisc Prescription [facility] Prescription, See Instructions, Easy Touch pen needles 5/16, use once daily. DX E11.9, # 100 EA, 1 Refill(s), Pharmacy: [place] , Compound Special Instructions: Easy Touch [...] 0 Refill(s), Start Date: 04/09/14 13: 44:00 [employer] Special Instructions: One tablet twice daily Start Date: 04/09/14 Stop Date: 04/21/14 Status: Discontinuednabumetone 750 mg oral tablet 2 tab(s), Oral, BID, # 120 tab(s), 5 Refill(s), Start Date: 08/19/14 13:47:59 CDT, Pharmacy: [place] Start Date: 08/19/14 Stop Date: 12/09/14 Status: Completednabumetone 750 mg oral tablet 2 tab(s), Oral, BID, # 60 tab(s), 2 Refill(s), Start Date: 05/21/14 13:07:38 [employer] , Pharmacy[place] Start Date: 05/21/14 Stop Date: 08/12/14 Status: Completednabumetone 750 mg oral tablet 2 tab(s), Oral, BID, with food, # 120 tab(s), 5 Refill(s), Start Date: 02/08/16 14:31:49 CDT, Pharmacy: [place], [place] Special Instructions: with food Start Date: 02/08/16 Status: Orderednabumetone 750 mg oral tablet 2 tab(s), Oral, BID, with food, # 120 tab(s), 5 Refill(s), Start Date: 06/09/15 13:54:00 [employer], Pharmacy: [place] Special Instructions: with food Start Date: 06/09/15 Stop Date: 02/08/16 Status: Completednabumetone 750 mg oral tablet 2 tab(s), Oral, BID, # 120 tab(s), 3 Refill(s), Start Date: 08/12/14 17:14:46 CDT, Pharmacy: [place] Start Date: 08/12/14 Stop Date: 08/19/14 Status: Discontinuednabumetone 750 mg oral tablet 2 tab(s), Oral, BID, # 120 tab(s), 5 Refill(s), Start Date: 12/09/14 17:53:00 CDT, Pharmacy: [place] Start Date: 12/09/14 Stop Date: 06/09/15 Status: Completednabumetone 750 mg oral tablet 2 tab(s), Oral, BID, # 60 tab(s), 2 Refill(s), Start Date: 04/21/14 10:40:00 [employer] , Pharmacy: [place] Start Date: 04/21/14 Stop Date: 05/21/14 Status: CompletedNasonex 50 mcg/inh nasal spray 2 spray(s), Nasal, Daily, PRN as needed for allergy symptoms, # 17 gm, 0 Refill( s), Start Date: 08/19/14 13:21:00 CDT Start Date: 08/19/14 Stop Date: 05/16/16 Status: CompletedNorco 5 mg-325 mg oral tablet 1 tab(s), Oral, q4hr, PRN pain moderate 4-7, # 30 tab(s), 0 Refill(s) Start Date: 01/15/14 Stop Date: 01/22/14 Status: Completednortriptyline 50 mg oral capsule 3 cap(s), Oral, HS, # 90 cap(s), 5 Refill(s), Start Date: 12/09/14 17:53:00 CDT , Pharmacy: [place] Start Date: 12/09/14 Stop Date: 06/09/15 Status: Completednortriptyline 50 mg oral capsule 3 cap(s), Oral, HS, # 90 cap(s), 5 Refill(s), Start Date: 12/19/15 14:21:04 CDT , Pharmacy: [facility], [place] Start Date: 12/19/15 Stop Date: 06/13/16 Status: Completednortriptyline 50 mg oral capsule 3 cap(s), Oral, HS, 0 Refill(s) Start Date: 12/24/13 Stop Date: 04/12/14 Status: Discontinuednortriptyline 50 mg oral capsule 3 cap(s), Oral, HS, # 90 cap(s), 5 Refill(s), Start Date: 06/13/16 11:26:03 [employer] , Pharmacy: [facility], [place] Start Date: 06/13/16 Status: Orderednortriptyline 50 mg oral capsule 3 cap(s), Oral, HS, # 90 cap(s), 3 Refill(s), Start Date: 08/12/14 17:14:44 CDT , Pharmacy: [facility], [place] Start Date: 08/12/14 Stop Date: 12/09/14 Status: Completednortriptyline 50 mg oral capsule 3 cap(s), Oral, HS, # 90 cap(s), 2 Refill(s), Start Date: 05/13/14 15:29:17 [employer] , Pharmacy: [facility], [place] Start Date: 05/13/14 Stop Date: 08/12/14 Status: Completednortriptyline 50 mg oral capsule 3 cap(s), Oral, HS, # 90 cap(s), 5 Refill(s), Start Date: 06/09/15 13:54:00 [employer] , Pharmacy: [facility], [place] Start Date: 06/09/15 Stop Date: 12/19/15 Status: Completednortriptyline 50 mg oral capsule 3 cap(s), Oral, HS, # 90 cap(s), 0 Refill(s), Start Date: 04/12/14 15:26:55 [employer] , Pharmacy: [facility], [place] Start Date: 04/12/14 Stop Date: 05/13/14 Status: Completedomeprazole 20 mg oral delayed release capsule 1 cap(s), Oral, BID, # 60 cap(s), 5 Refill(s), Start Date: 09/21/15 14:54:43 CDT , Pharmacy: [facility], [place] Start Date: 09/21/15 Stop Date: 04/10/16 Status: Completedomeprazole 20 mg oral delayed release capsule 1 cap(s), Oral, BID, # 60 cap(s), 5 Refill(s), Start Date: 09/07/14 16:08:52 CDT , Pharmacy: [facility], [place] Start Date: 09/07/14 Stop Date: 03/14/15 Status: Completedomeprazole 20 mg oral delayed release capsule 1 cap(s), Oral, BID, # 60 cap(s), 0 Refill(s), Start Date: 04/12/14 15:26:52 [employer] , Pharmacy: [facility], [place] Start Date: 04/12/14 Stop Date: 05/13/14 Status: Completedomeprazole 20 mg oral delayed release capsule 1 cap(s), Oral, BID, # 60 cap(s), 5 Refill(s), Start Date: 03/14/15 12:04:00 [employer] , Pharmacy: [place] Start Date: 03/14/15 Stop Date: 09/21/15 Status: Completedomeprazole 20 mg oral delayed release capsule 1 cap(s), Oral, BID, # 60 cap(s), 5 Refill(s), Start Date: 04/10/16 10:44:06 [employer] , Pharmacy: [place] Start Date: 04/10/16 Status: Orderedomeprazole 20 mg oral delayed release capsule 1 cap(s), Oral, Daily, 0 Refill(s) Start Date: 01/11/14 Stop Date: 04/12/14 Status: Discontinuedomeprazole 20 mg oral delayed release capsule 1 cap(s), Oral, BID, # 60 cap(s), 3 Refill(s), Start Date: 05/13/14 15:29:17 [employer] , Pharmacy: [place] Start Date: 05/13/14 Stop Date: 09/07/14 Status: CompletedPen [place] Mini 31G 5mm See Instructions, Use daily with Tresiba and Victoza. DX E11.9, # 200 EA, 1 Refill(s), Pharmacy: [place], [place], Supply Special Instructions: Use daily with Tresiba and Victoza. DX E11.9 Start Date: 08/16/15 Status: OrderedPen [place] Mini 31G 5mm See Instructions, Use daily with Tresiba and Victoza, # 200 EA, 1 Refill(s), Supply Special Instructions: Use daily with Tresiba and Victoza Start Date: 08/16/15 Stop Date: 08/16/15 Status: DiscontinuedPneumovax 23 injectable solution See Instructions, IM ONETIME as directed, # 1 EA, 0 Refill(s), Start Date: 03/05 15:22:00 CDT, Pharmacy: [place], [place] Special Instructions: IM ONETIME as directed Start Date: 03/05/14 Stop Date: 08/19/14 Status: DiscontinuedPneumovax 23 injectable solution 0.5 mL, IM, ONETIME, # 1 mL, 0 Refill(s), Start Date: 03/05/14 15:20:00 CDT Start Date: 03/05/14 Stop Date: 03/05/14 Status: DiscontinuedPristiq 100 mg oral tablet, extended release 1 tab(s), Oral, Daily, # 30 tab(s), 5 Refill(s), Start Date: 12/19/15 14:21:40 CDT, Pharmacy: [place] Start Date: 12/19/15 Stop Date: 06/13/16 Status: CompletedPristiq 100 mg oral tablet, extended release 1 tab(s), Oral, Daily, # 30 tab(s), 5 Refill(s), Start Date: 12/09/14 17:53:00 CDT, Pharmacy: [facility], [place] Start Date: 12/09/14 Stop Date: 06/09/15 Status: CompletedPristiq 100 mg oral tablet, extended release 1 tab(s), Oral, Daily, # 30 tab(s), 2 Refill(s), Start Date: 05/13/14 15:29:16 [employer], Pharmacy: [place] Start Date: 05/13/14 Stop Date: 08/12/14 Status: CompletedPristiq 100 mg oral tablet, extended release 1 tab(s), Oral, Daily, # 30 tab(s), 5 Refill(s), Start Date: 06/09/15 13:54:00 [employer], Pharmacy: [place] Start Date: 06/09/15 Stop Date: 12/19/15 Status: CompletedPristiq 100 mg oral tablet, extended release 1 tab(s), Oral, Daily, # 30 tab(s), 0 Refill(s) Start Date: 01/11/14 Stop Date: 04/12/14 Status: DiscontinuedPristiq 100 mg oral tablet, extended release 1 tab(s), Oral, Daily, # 30 tab(s), 0 Refill(s), Start Date: 04/12/14 15:26:54 [employer], Pharmacy: [place] Start Date: 04/12/14 Stop Date: 05/13/14 Status: CompletedPristiq 100 mg oral tablet, extended release 1 tab(s), Oral, Daily, # 30 tab(s), 5 Refill(s), Start Date: 06/13/16 11:23:30 [employer], Pharmacy: [place] Start Date: 06/13/16 Status: OrderedPristiq 100 mg oral tablet, extended release 1 tab(s), Oral, Daily, # 30 tab(s), 3 Refill(s), Start Date: 08/12/14 17:14:47 CDT, Pharmacy: [place] Start Date: 08/12/14 Stop Date: 12/09/14 Status: CompletedPristiq 50 mg oral tablet, extended release 2 tab(s), Oral, Daily, 0 Refill(s) Start Date: 12/24/13 Stop Date: 01/11/14 Status: DiscontinuedSenokot S 50 mg-8.6 mg oral tablet 1 tab(s), Oral, BID, X 7 days, # 14 tab(s), 0 Refill(s), Pharmacy: [place] Start Date: 01/15/14 Stop Date: 01/22/14 Status: CompletedSuprep Bowel Prep Kit oral liquid 1 kit(s), Oral, ONETIME, # 1 kit(s), 0 Refill(s), Start Date: 04/12/15 8:52:00 [employer], Pharmacy: [place] Start Date: 04/12/15 Stop Date: 05/26/15 Status: CompletedSuprep Bowel Prep Kit oral liquid 1 bottles, Oral, BID, Mix 1 btl to 16oz water and drink. Next morning; repeat use second btl. Complete at least 1 hr before colonscopy., # 1 kit(s), 0 Refill (s), Start Date: 04/12/15 8:38:00 [employer], Pharmacy: [place], [place] Special Instructions: Mix 1 btl to 16oz water and drink. Next morning; repeat use second btl. Complete at least 1 hr before colonscopy. Start Date: 04/12/15 Stop Date: 04/13/15 Status: CompletedTest Strips Other (See Comment) 3 Month Supply, Subcutaneous, TID, Truetest glucose test strips. DX E11.9, # 300 EA, 5 Refill(s), Pharmacy: [place], [place], Supply Special Instructions: Truetest glucose test strips. DX E11.9 Start Date: 11/11/15 Status: OrderedTest Strips Other (See Comment) 3 Month Supply, Subcutaneous, TID, Truetest glucose test strips. DX 250.00, # 1 QS, 1 Refill(s), Pharmacy: [place], Supply Special Instructions: Truetest glucose test strips. DX 250.00 Start Date: 05/13/14 Stop Date: 12/16/14 Status: CompletedTest Strips Other (See Comment) 3 Month Supply, Subcutaneous, TID, Truetest glucose test strips. DX E11.9, # 300 EA, 1 Refill(s), Pharmacy: [place], Supply Special Instructions: Truetest glucose test strips. DX E11.9 Start Date: 02/09/15 Stop Date: 11/11/15 Status: CompletedTest Strips Other (See Comment) 3 Month Supply, Subcutaneous, TID, Truetest glucose test strips. DX 250.00, # 1 QS, 1 Refill(s), Supply Special Instructions: Truetest glucose test strips. DX 250.00 Start Date: 05/13/14 Stop Date: 05/13/14 Status: DiscontinuedTest Strips Other (See Comment) 3 Month Supply, Subcutaneous, TID, Truetest glucose test strips. DX 250.00, # 1 QS, 1 Refill(s), Pharmacy: [place], Supply Special Instructions: Truetest glucose test strips. DX 250.00 Start Date: 12/16/14 Stop Date: 02/09/15 Status: CompletedtraMADol 50 mg oral tablet 1 tab(s), Oral, q6hr interval, PRN pain moderate 4-7, # 60 tab(s), 1 Refill(s), Start Date: 05/21/14 13:07:39 [employer], Pharmacy: [place] Start Date: 05/21/14 Stop Date: 05/24/15 [...] Start Date: 10/13/15 9:45: 32 CDT, Pharmacy: [place] Start Date: 10/13/15 Stop Date: 01/23/16 Status: CompletedTresiba FlexTouch 200 units/mL subcutaneous solution See Instructions, 50 units Subcutaneous Daily, # 1 EA, 2 Refill(s), Start Date: 07/19/15 14:26:00 CDT, Pharmacy: [place] Special Instructions: 50 units Subcutaneous Daily Start Date: 07/19/15 Stop Date: 10/13/15 Status: CompletedTresiba FlexTouch 200 units/mL subcutaneous solution 54 units, Subcutaneous, Daily, # 9 mL, 5 Refill(s), Start Date: 01/23/16 16:48: 41 CDT, Pharmacy: [place] Start Date: 01/23/16 Status: OrderedTylenol 8 HR Arthritis Pain 1,300 mg, Oral, BID, 0 Refill(s), Start Date: 05/16/16 7:29:00 [employer] Start Date: 05/16/16 Status: OrderedTylenol Arthritis Caplet mg, Oral, q8hr interval, 0 Refill(s) Start Date: 12/24/13 Stop Date: 05/16/16 Status: CompletedUnasyn 2 g-1 g injection 3 gm, IV, q6hr interval, # 148 bags, 0 Refill(s) Start Date: 01/15/14 Stop Date: 08/19/14 Status: Discontinuedursodiol 300 mg oral capsule 1 cap(s), Oral, TID, # 90 cap(s), 5 Refill(s), Start Date: 12/19/15 14:20:09 CDT , Pharmacy: [place] Start Date: 12/19/15 Stop Date: 06/16/16 Status: Orderedursodiol 300 mg oral capsule 1 cap(s), Oral, TID, 0 Refill(s) Start Date: 12/24/13 Stop Date: 04/12/14 Status: Discontinuedursodiol 300 mg oral capsule 1 cap(s), Oral, TID, # 90 cap(s), 2 Refill(s), Start Date: 05/13/14 15:29:20 [employer] , Pharmacy: [place] Start Date: 05/13/14 Stop Date: 08/12/14 Status: Completedursodiol 300 mg oral capsule 1 cap(s), Oral, TID, X 30 days, # 90 cap(s), 5 Refill(s), Start Date: 06/09/15 13:54:00 [employer], Pharmacy: [place] Start Date: 06/09/15 Stop Date: 12/19/15 Status: Completedursodiol 300 mg oral capsule 1 cap(s), Oral, TID, # 90 cap(s), 5 Refill(s), Start Date: 12/09/14 17:53:00 CDT , Pharmacy: [place] Start Date: 12/09/14 Stop Date: 06/09/15 Status: Completedursodiol 300 mg oral capsule 1 cap(s), Oral, TID, # 90 cap(s), 3 Refill(s), Start Date: 08/12/14 17:14:47 CDT , Pharmacy: [place] Start Date: 08/12/14 Stop Date: 12/09/14 Status: Completedursodiol 300 mg oral capsule 1 cap(s), Oral, TID, # 90 cap(s), 0 Refill(s), Start Date: 04/12/14 15:26:52 [employer] , Pharmacy: [place] Start Date: 04/12/14 Stop Date: 05/13/14 Status: CompletedVicodin 5 mg-325 mg oral tablet See Instructions, 1-2 tabOral 4- q6hr interval, 0 Refill(s) Special Instructions: 1-2 tabOral 4- q6hr interval Start Date: 01/28/14 Stop Date: 03/05/14 Status: DiscontinuedVictoza 18 mg/3 mL subcutaneous solution 1.8 mg, Subcutaneous, Daily, # 1 QS, 5 Refill(s), Start Date: 11/11/15 8:18:49 CDT, Pharmacy: [place] Start Date: 11/11/15 Stop Date: 05/09/16 Status: OrderedVictoza 18 mg/3 mL subcutaneous solution 0.6 mg, Subcutaneous, Daily, 0.6 mg daily for 7 days then increase to 1.2 mg daily., # 6 mL, 2 Refill(s), Start Date: 07/27/14 12:14:00 CDT, Pharmacy: [place] Special Instructions: 0.6 mg daily for 7 days then increase to 1.2 mg daily. Start Date: 07/27/14 Stop Date: 11/16/14 Status: CompletedVictoza 18 mg/3 mL subcutaneous solution 1.2 mg, Subcutaneous, Daily, # 1 QS, 5 Refill(s), Start Date: 11/16/14 15:52:54 CDT, Pharmacy: [place] Start Date: 11/16/14 Stop Date: 03/30/15 Status: DiscontinuedVictoza 18 mg/3 mL subcutaneous solution 1.8 mg, Subcutaneous, Daily, X 30 days, # 1 QS, 5 Refill(s), Start Date: 11:25:28 [employer], Pharmacy: [place] Start Date: 03/30/15 Stop Date: 11/11/15 Status: CompletedVitamin D3 1000 intl units oral tablet 1 tab(s), Oral, Daily, # 30 tab(s), 0 Refill(s), Start Date: 05/24/15 11:56:00 [employer] Start Date: 05/24/15 Stop Date: 12/28/15 Status: DiscontinuedVitamin D3 2000 intl units oral tablet 2 tab(s), Oral, Daily, # 60 tab(s), 0 Refill(s), Start Date: 12/28/15 15:55:00 CDT Start Date: 12/28/15 Status: OrderedZostavax subcutaneous injection See Instructions, Subcutaneous ONETIME as directed, # 1 EA, 0 Refill(s), Start Date: 03/05/14 15:20:00 CDT, Pharmacy: [facility] [place] [place] Special Instructions: Subcutaneous ONETIME as directed Start Date: 03/05/14 Stop Date: 08/19/14 Status: DiscontinuedZostavax subcutaneous injection 1 EA, Subcutaneous, ONETIME, # 1 EA, 0 Refill(s), Start Date: 03/05/14 15:19:00 CDT Start Date: 03/05/14 Stop Date: 03/05/14 Status: Discontinued Results No data available for this section Immunizations No data available for this section Procedures Procedure Date Related Diagnosis Body Site Colonoscopy1 06/15/16 Colonoscopy2 05/26/15 Esophagogastroduodenoscopy3 05/26/15 Transurethral Resection Prostate4 02/01/14 Tendonesis (Left, Foot L)5 01/12/14 Cystoscopy 01/01/14 Ear drum6 2011 Gastric biopsy 2011 Polyp of vocal cord7 2010 Amputation of toe [id number]-populated from documented surgical [id number] from documented surgical [id number] from documented surgical [id number] from documented surgical [id number] from documented surgical [id number] Social History No data available for this section Assessment and Plan No data available for this section
--- OUTSIDE RECORDS SUMMARY | 2016-08-31 11:08 | XMS REPORT | Summary of Care ---
:1955 Author Organization [facility] Address [address] [place] [address]- Care Team Providers Name Role Phone Wilson, Mathieu James Primary Care Physician Encounter Date(s): 06/15/16 - 06/15/16 [facility] [address] [place] [id number] [facility] Discharge Disposition: 01 Discharged to Home or Self Care Attending Physician: Clemente Herrera DO Admitting Physician: Clemente Herrera DO Vital Signs Most recent to oldest 1 2 3 [Reference Range]: Temperature Temporal Artery 36.3 DegC 36.6 DegC [36-38 DegC] (06/15/16 11:45 AM) (06/15/16 8:30 AM) Heart Rate Monitored [60-100 71 bpm 65 bpm 65 bpm bpm] (06/15/16 12:12 PM) (06/15/16 12:00 PM) (06/15/16 11:55 AM) Respiratory Rate [12-20 18 br/min 18 br/min 16 br/min br/min] (06/15/16 12:12 PM) (06/15/16 12:00 PM) (06/15/16 11:55 AM) SpO2 95 % 93 % 94 % (06/15/16 12:12 PM) (06/15/16 12:00 PM) (06/15/16 11:55 AM) Blood Pressure [90-130/60-90 147/64mmHg 113/47mmHg 139/66mmHg mmHg] *HI* (06/15/16 12:12 PM) *HI* (06/15/16 12:40 PM) (06/15/16 12:00 PM) Mean Arterial Pressure 89 mmHg 88 mmHg 84 mmHg Monitor Measure (06/15/16 12:00 PM) (06/15/16 11:55 AM) (06/15/16 11:50 AM) Most recent to oldest [Reference Range]: 1 2 3 Height/Length Measured 185 cm (06/15/16 8:30 AM) Weight Dosing 158.7 kg (06/15/16 8:30 AM) Weight Measured 158.7 kg (06/15/16 8:30 AM) Body Mass Index Measured 46.37 kg/m2 (06/15/16 8:30 AM) Problem List Condition Effective Dates Status [...] Reactions, Alerts Substance Reaction Severity Status penicillins [id number] 19:24:09<$> Active Tape rash Severe Active Medications albuterol CFC free 90 mcg/inh inhalation aerosol 2 puff(s), Inhale, q4hr, PRN shortness of breath or wheezing, # 1 EA, 0 Refill(s ), Pharmacy: [place], [place] Start Date: 01/15/14 Stop Date: 02/14/14 Status: OrderedamLODIPine 10 mg oral tablet 1 tab(s), Oral, Daily, dose increase, # 30 tab(s), 5 Refill(s), Start Date: 02/18 13:20:00 [employer], Pharmacy: [place], [place] Special Instructions: dose increase Start Date: 03/15/16 Status: OrderedamLODIPine 5 mg oral tablet 1 tab(s), Oral, Daily, # 90 tab(s), 1 Refill(s), Start Date: 10/13/15 9:44:20 CDT, Pharmacy: [place], [place] Start Date: 10/13/15 Stop Date: 03/15/16 Status: DiscontinuedamLODIPine 5 mg oral tablet 1 tab(s), Oral, Daily, X 30 days, # 30 tab(s), 2 Refill(s), Start Date: 13:13:00 [employer], Pharmacy: [place] Start Date: 03/30/15 Stop Date: 07/12/15 Status: CompletedamLODIPine 5 mg oral tablet 1 tab(s), Oral, Daily, X 30 days, # 30 tab(s), 1 Refill(s), Start Date: 12:04:00 [employer], Pharmacy: [place] Start Date: 07/12/15 Stop Date: 10/13/15 Status: CompletedByetta Prefilled Pen 5 mcg/0.02 mL subcutaneous solution 0.02, Subcutaneous, BID, 0 Refill(s) Start Date: 12/24/13 Stop Date: 04/12/14 Status: DiscontinuedByetta Prefilled Pen 5 mcg/0.02 mL subcutaneous solution 5 mcg, Subcutaneous, BID, 30 day supply, # 1 QS, 2 Refill(s), Start Date: 11:25:24 [employer], Pharmacy: [place], [place] Special Instructions: insurance refused coverage--switched to Victoza Start Date: 06/18/14 Stop Date: 07/27/14 Status: DiscontinuedByetta Prefilled Pen 5 mcg/0.02 mL subcutaneous solution 0.02, Subcutaneous, BID, 30 day supply, # 1 QS, 0 Refill(s), Start Date: 15:26:54 [employer], Pharmacy: [place], [place] Special Instructions: 30 day supply Start Date: 04/12/14 Stop Date: 06/18/14 Status: CompletedCentrum Silver oral tablet 1 tab(s), Oral, Daily, 0 Refill(s) Start Date: 01/10/14 Stop Date: 01/11/14 Status: Discontinuedcephalexin 250 mg oral capsule 1 cap(s), Oral, QID, # 40 cap(s), 0 Refill(s), Start Date: 08/15/15 14:16:00 CDT , Pharmacy: [place], [place] Start Date: 08/15/15 Stop Date: 01/06/16 Status: Completedcholecalciferol 50,000 intl units oral capsule 1 cap(s), Oral, q7day, # 8 cap(s), 0 Refill(s), Start Date: 08/23/14 8:17:00 CDT , Pharmacy: [place] Start Date: 08/23/14 Stop Date: 05/24/15 Status: CompletedCialis 20 mg oral tablet 0.5 tab(s), Oral, Daily, # 8 tab(s), 0 Refill(s), Start Date: 02/19/14 10:47:00 CDT, samples given to patient (Rx), [id number], 08/04/14 Start Date: 02/19/14 Stop Date: 08/19/14 Status: DiscontinuedCialis 20 mg oral tablet 0.5 tab(s), Oral, Daily, # 8 tab(s), 0 Refill(s), Start Date: 08/19/14 13:49:20 CDT, Pharmacy: [place], [place], [id number], 08/04/14 Start Date: 08/19/14 Stop Date: 05/24/15 Status: CompletedCialis 5 mg oral tablet 1 tab(s), Oral, Daily, PRN for erectile dysfunction, # 30 tab(s), 0 Refill(s), samples given to patient (Rx), [id number], 04/05/16 Start Date: 12/24/13 Stop Date: 03/05/14 Status: DiscontinuedCipro 500 mg oral tablet 1 tab(s), Oral, q12hr, # 20 tab(s), 0 Refill(s), Start Date: 09/26/15 13:39:00 CDT, Pharmacy: [place] Start Date: 09/26/15 Stop Date: 10/12/15 Status: CompletedCipro 500 mg oral tablet 1 tab(s), Oral, q12hr, # 28 tab(s), 0 Refill(s), Start Date: 10/12/15 10:51:00 CDT, Pharmacy: [facility] [place] Start Date: 10/12/15 Stop Date: 01/06/16 Status: [...] Start Date: 09/26/15 13:39:00 CDT , Pharmacy: [place] Start Date: 09/26/15 Stop Date: 10/12/15 Status: Completedcranberry oral tablet 1 tab, Oral, Daily, 0 Refill(s), Start Date: 05/16/16 7:33:00 [employer] Start Date: 05/16/16 Status: Orderedcyclobenzaprine 5 mg oral tablet 1 tab(s), Oral, TID, # 90 tab(s), 3 Refill(s), Start Date: 07/13/14 10:47:23 CDT , Pharmacy: [facility] [place] Start Date: 07/13/14 Stop Date: 11/04/14 Status: Completedcyclobenzaprine 5 mg oral tablet 1 tab(s), Oral, TID, X 30 days, # 90 tab(s), 1 Refill(s), Start Date: 05/21/14 13:15:00 [employer], Pharmacy: [place] Start Date: 05/21/14 Stop Date: 07/13/14 Status: Completedcyclobenzaprine 5 mg oral tablet 1 tab(s), Oral, TID, # 90 tab(s), 5 Refill(s), Start Date: 03/14/15 12:04:00 [employer] , Pharmacy: [facility] Start Date: 03/14/15 Stop Date: 11/16/15 Status: Completedcyclobenzaprine 5 mg oral tablet 1 tab(s), Oral, TID, # 90 tab(s), 5 Refill(s), Start Date: 11/16/15 16:28:38 CDT , Pharmacy: [facility] Start Date: 11/16/15 Status: Orderedcyclobenzaprine 5 mg oral tablet 1 tab(s), Oral, TID, # 90 tab(s), 3 Refill(s), Start Date: 11/04/14 16:52:55 CDT , Pharmacy: [facility] Start Date: 11/04/14 Stop Date: 03/14/15 Status: Completedesomeprazole 20 mg oral delayed release capsule cap(s), Oral, Daily, 0 Refill(s) Start Date: 12/24/13 Stop Date: 01/11/14 Status: Discontinuedfenofibrate 145 mg oral tablet 1 tab(s), Oral, Daily, # 30 tab(s), 5 Refill(s), Start Date: 12/19/15 14:20:40 CDT, Pharmacy: [facility] Start Date: 12/19/15 Stop Date: 06/13/16 Status: Completedfenofibrate 145 mg oral tablet 1 tab(s), Oral, Daily, # 30 tab(s), 2 Refill(s), Start Date: 05/13/14 15:29:18 [employer], Pharmacy: [facility] Start Date: 05/13/14 Stop Date: 08/12/14 Status: Completedfenofibrate 145 mg oral tablet 1 tab(s), Oral, Daily, # 30 tab(s), 0 Refill(s), Start Date: 04/12/14 15:26:55 [employer], Pharmacy: [facility] Start Date: 04/12/14 Stop Date: 05/13/14 Status: Completedfenofibrate 145 mg oral tablet 1 tab(s), Oral, Daily, 0 Refill(s) Start Date: 01/11/14 Stop Date: 04/12/14 Status: Discontinuedfenofibrate 145 mg oral tablet 1 tab(s), Oral, Daily, # 30 tab(s), 5 Refill(s), Start Date: 12/09/14 17:53:00 CDT, Pharmacy: [place] Start Date: 12/09/14 Stop Date: 06/09/15 Status: Completedfenofibrate 145 mg oral tablet 1 tab(s), Oral, Daily, # 30 tab(s), 5 Refill(s), Start Date: 06/09/15 13:54:00 [employer], Pharmacy: [place] Start Date: 06/09/15 Stop Date: 12/19/15 Status: Completedfenofibrate 145 mg oral tablet 1 tab(s), Oral, Daily, # 30 tab(s), 5 Refill(s), Start Date: 06/13/16 11:22:46 [employer], Pharmacy: [place] Start Date: 06/13/16 Status: Orderedfenofibrate 145 mg oral tablet 1 tab(s), Oral, Daily, # 30 tab(s), 3 Refill(s), Start Date: 08/12/14 17:14:48 CDT, Pharmacy: [place] Start Date: 08/12/14 Stop Date: 12/09/14 Status: Completedfenofibrate 54 mg oral tablet 1 tab(s), Oral, HS, 0 Refill(s) Start Date: 01/10/14 Stop Date: 01/11/14 Status: Discontinuedfluticasone 50 mcg/inh nasal spray 1 spray(s), Nasal, BID, PRN allergy symptoms, X 30 days, # 1 EA, 5 Refill(s), Start Date: 12/19/15 14:22:29 CDT, Pharmacy: [place] Start Date: 12/19/15 Stop Date: 06/13/16 Status: Completedfluticasone 50 mcg/inh nasal spray 1-2 spray(s), Nasal, Daily, 0 Refill(s) Start Date: 12/24/13 Stop Date: 01/11/14 Status: Discontinuedfluticasone 50 mcg/inh nasal spray 1 spray(s), Nasal, BID, PRN allergy symptoms, X 30 days, # 1 EA, 5 Refill(s), Start Date: 06/02/15 13:11:00 [employer], Pharmacy: [place] Start Date: 06/02/15 Stop Date: 12/19/15 Status: Completedfluticasone 50 mcg/inh nasal spray 1 puff(s), Nasal, Daily, # 1 EA, 0 Refill(s), Pharmacy: [place] Start Date: 01/15/14 Stop Date: 08/19/14 Status: Discontinuedfluticasone 50 mcg/inh nasal spray 1 spray(s), Nasal, BID, PRN allergy symptoms, # 1 EA, 5 Refill(s), Start Date: 06/13/16 11:25:06 [employer], Pharmacy: [place] Start Date: 06/13/16 Stop Date: 12/10/16 Status: Orderedgabapentin 800 mg oral tablet See Instructions, Take 1 tab in the morning and 1 tab in the afternoon and 2 tabs HS., # 120 tab(s), 5 Refill(s), Start Date: 12/19/15 14:18:45 CDT, Pharmacy : [place], [place] Special Instructions: Take 1 tab in the morning and 1 tab in the afternoon and 2 tabs HS. Start Date: 12/19/15 Stop Date: 06/13/16 Status: Completedgabapentin 800 mg oral tablet See Instructions, 800 mg in the AM and afternoon.1600 mg at HS., # 1 QS, 4 Refill(s), Start Date: 05/13/14 15:29:17 [employer], Pharmacy: [place] Special Instructions: 800 mg in the [...] Refill(s), Start Date: 08/16/15 15:37:00 CDT, Pharmacy: [place] Special Instructions: 800 mg in the AM and afternoon.1600 mg at HS. Start Date: 08/16/15 Stop Date: 10/13/15 Status: Completedgabapentin 800 mg oral tablet See Instructions, 800 mg in the AM and afternoon.1600 mg at HS., # 120 tab(s), 5 Refill(s), Start Date: 02/09/15 12:11:00 CDT, Pharmacy: [place] Special Instructions: 800 mg in the AM and afternoon.1600 mg at HS. Start Date: 02/09/15 Stop Date: 08/16/15 Status: Completedgabapentin 800 mg oral tablet See Instructions, Take 1 tab in the morning and 1 tab in the afternoon and 2 tabs HS., # 120 tab(s), 5 Refill(s), Start Date: 06/13/16 11:25:31 [employer], Pharmacy : [place] Special Instructions: Take 1 tab in the morning and 1 tab in the afternoon and 2 tabs HS. Start Date: 06/13/16 Status: Orderedgabapentin 800 mg oral tablet 1 tab(s), Oral, TID, # 90 tab(s), 0 Refill(s), Start Date: 04/12/14 15:26:56 [employer] , Pharmacy: [place] Start Date: 04/12/14 Stop Date: 05/13/14 Status: Completedgabapentin 800 mg oral tablet See Instructions, 800 mg in the AM and afternoon.1600 mg at HS., # 120 tab(s), 1 Refill(s), Start Date: 10/13/15 9:47:12 CDT, Pharmacy: [place] Special Instructions: 800 mg in the AM and afternoon.1600 mg at HS. Start Date: 10/13/15 Stop Date: 12/19/15 Status: Completedglimepiride 4 mg oral tablet 1 tab(s), Oral, BID, # 60 tab(s), 2 Refill(s), Start Date: 05/13/14 15:29:19 [employer] , Pharmacy: [place] Start Date: 05/13/14 Stop Date: 08/12/14 Status: Completedglimepiride 4 mg oral tablet 1 tab(s), Oral, BID, # 180 tab(s), 1 Refill(s), Start Date: 10/13/15 9:43:35 CDT , Pharmacy: [place] Start Date: 10/13/15 Stop Date: 04/10/16 Status: Completedglimepiride 4 mg oral tablet 1 tab(s), Oral, BID, 0 Refill(s) Start Date: 12/24/13 Stop Date: 04/12/14 Status: Discontinuedglimepiride 4 mg oral tablet 1 tab(s), Oral, BID, # 60 tab(s), 0 Refill(s), Start Date: 04/12/14 15:26:53 [employer] , Pharmacy: [place] Start Date: 04/12/14 Stop Date: 05/13/14 Status: Completedglimepiride 4 mg oral tablet 1 tab(s), Oral, BID, # 180 tab(s), 3 Refill(s), Start Date: 09/16/14 18:17:38 CDT, Pharmacy: [place] Start Date: 09/16/14 Stop Date: 10/13/15 Status: Completedglimepiride 4 mg oral tablet 1 tab(s), Oral, BID, # 180 tab(s), 1 Refill(s), Start Date: 04/10/16 10:45:43 [employer], Pharmacy: [place] Start Date: 04/10/16 Status: Orderedglimepiride 4 mg oral tablet 1 tab(s), Oral, BID, # 60 tab(s), 3 Refill(s), Start Date: 08/12/14 17:14:45 CDT , Pharmacy: [place] Start Date: 08/12/14 Stop Date: 09/16/14 Status: CompletedGoLYTELY oral powder for reconstitution See Instructions, as directed on package labeling, # 4,000 mL, 0 Refill(s), Start Date: 03/14/16 16:49:00 [employer], Pharmacy: [place] Special Instructions: as directed on package labeling Start Date: 03/14/16 Stop Date: 06/14/16 Status: CompletedGoLYTELY oral powder for reconstitution See Instructions, 240 mL Oral Daily, # 4,000 mL, 0 Refill(s), Start Date: 7:40:00 [employer], Pharmacy: [place] Special Instructions: 240 mL Oral Daily Start Date: 06/14/16 Stop Date: 06/15/16 Status: CompletedGoLYTELY oral powder for reconstitution See Instructions, 240 mL Oral q10min, # 4,000 mL, 0 Refill(s), Start Date: 05/17 9:17:00 [employer], Pharmacy: [place] Special Instructions: 240 mL Oral q10min Start Date: 05/17/16 Stop Date: 06/14/16 Status: Completedheparin flush 10 units/mL intravenous solution 5 mL, IV Push, As Indicated, PRN PICC Maintenance, 0 Refill(s) Start Date: 01/15/14 Stop Date: 03/05/14 Status: DiscontinuedHumaLOG 100 units/mL subcutaneous solution See Instructions, Give 3 units plus sliding scale with evening meal., # 10 mL, 0 Refill(s), Start Date: 04/26/15 16:13:00 [employer], Pharmacy: [place] Special Instructions: Give 3 units plus sliding scale with evening meal. Start Date: 04/26/15 Stop Date: 05/10/15 Status: CompletedHumaLOG 100 units/mL subcutaneous solution See Instructions, Give 3 units plus sliding scale with evening meal., # 10 mL, 5 Refill(s), Start Date: 05/10/15 7:52:00 [employer], Pharmacy: [place] Special Instructions: Give 3 units plus sliding scale with evening meal. Start Date: 05/10/15 Status: Orderedhydrochlorothiazide 12.5 mg oral tablet 1 tab(s), Oral, Daily, X 30 days, # 30 tab(s), 2 Refill(s), Start Date: 14:25:00 CDT, Pharmacy: [place] Start Date: 07/19/15 Stop Date: 08/15/15 Status: Completedhydrochlorothiazide 25 mg oral tablet 1 tab(s), Oral, Daily, # 30 tab(s), 2 Refill(s), Start Date: 08/15/15 13:53:00 CDT, Pharmacy: [place] Start Date: 08/15/15 Stop Date: 11/13/15 Status: Orderedinsulin detemir 100 units/mL subcutaneous solution See Instructions, 20 units in the AM and 30 units PM daily. 30 day supply, Levimer FlexTouch, # 15 mL, 5 Refill(s), Start Date: 01/23/16 17:08:05 CDT, Pharmacy: [place] Special Instructions: 20 units in the AM and 30 units PM daily. 30 day supply, Levimer FlexTouch Start Date: 01/23/16 Stop Date: 05/16/16 Status: Completedinsulin detemir 100 units/mL subcutaneous solution See Instructions, 20 units in the AM and PM daily. 30 day supply, Levimer FlexTouch, # 1 QS, 1 Refill(s), Start Date: 04/12/14 15:26:54 [employer], Pharmacy: [place] Special Instructions: 20 units in the [...] Refill(s), Start Date: 10/11/14 9:46:52 CDT, Pharmacy: [place] Special Instructions: 20 units in the AM and PM daily. 30 day supply, Levimer FlexTouch Start Date: 10/11/14 Stop Date: 05/11/15 Status: Completedinsulin detemir 100 units/mL subcutaneous solution See Instructions, 20 units in the AM and PM daily. 30 day supply, Levimer FlexTouch, # 15 mL, 3 Refill(s), Start Date: 08/12/14 17:14:46 CDT, Pharmacy: [place] Special Instructions: 20 units in the AM and PM daily. 30 day supply, Levimer FlexTouch Start Date: 08/12/14 Stop Date: 10/11/14 Status: Completedinsulin detemir 100 units/mL subcutaneous solution See Instructions, 20 units in the AM and 30 units PM daily. 30 day supply, Levimer FlexTouch, # 15 mL, 11 Refill(s), Start Date: 05/11/15 17:34:00 [employer], Pharmacy: [place] Special Instructions: 20 units in the AM and 30 units PM daily. 30 day supply, Levimer FlexTouch Start Date: 05/11/15 Stop Date: 01/23/16 Status: CompletedInsulin Pen [place] 516" 31G 100 [place], Subcutaneous, Daily, use once daily. DX 250.00. Easy touch pen needles., # 1 QS, 1 Refill(s), Pharmacy: [place], [place], Supply Special Instructions: use once daily. DX 250.00. Easy touch pen needles. Start Date: 09/07/14 Stop Date: 08/16/15 Status: DiscontinuedInsulin Pen [place] 5/16" 31G 100 [place], Subcutaneous, Daily, use daily. DX 250.00, # 1 QS, 1 Refill(s), Supply Special Instructions: use daily. DX 250.00 Start Date: 09/07/14 Stop Date: 09/07/14 Status: DiscontinuedInsulin Syringes 3/10" 31G 6mm See Instructions, Subcutaneous TID. DX E11.9. Patient states that he needs 50 unit syringes., # 300 EA, 3 Refill(s), Pharmacy: [place], [place] , Supply Special Instructions: Subcutaneous TID. [...] tab(s), 5 Refill(s), Start Date: 03/15/16 13:21:00 [employer], Pharmacy: [facility] [place] Start Date: 03/15/16 Status: Orderedlisinopril 40 mg oral tablet 1 tab(s), Oral, BID, # 60 tab(s), 2 Refill(s), Start Date: 05/13/14 15:29:19 [employer] , Pharmacy: [facility] Start Date: 05/13/14 Stop Date: 08/12/14 Status: Completedlisinopril 40 mg oral tablet 1 tab(s), Oral, BID, 0 Refill(s) Start Date: 12/24/13 Stop Date: 01/15/14 Status: Discontinuedlisinopril 40 mg oral tablet 1 tab(s), Oral, BID, # 180 tab(s), 1 Refill(s), Start Date: 10/13/15 9:42:12 CDT , Pharmacy: [facility] Start Date: 10/13/15 Stop Date: 04/10/16 Status: Completedlisinopril 40 mg oral tablet 1 tab(s), Oral, Daily, # 30 tab(s), 0 Refill(s), Start Date: 01/15/14 9:26:00 CDT, Pharmacy: [facility] Start Date: 01/15/14 Stop Date: 04/12/14 Status: Completedlisinopril 40 mg oral tablet 1 tab(s), Oral, BID, # 60 tab(s), 0 Refill(s), Start Date: 04/12/14 15:26:53 [employer] , Pharmacy: [facility] Start Date: 04/12/14 Stop Date: 05/13/14 Status: Completedlisinopril 40 mg oral tablet 1 tab(s), Oral, BID, # 180 tab(s), 3 Refill(s), Start Date: 09/16/14 18:17:38 CDT, Pharmacy: [facility] [place] Start Date: 09/16/14 Stop Date: 10/13/15 Status: Completedlisinopril 40 mg oral tablet 1 tab(s), Oral, BID, # 180 tab(s), 1 Refill(s), Start Date: 04/10/16 10:44:40 [employer], Pharmacy: [place] Start Date: 04/10/16 Status: Orderedlisinopril 40 mg oral tablet 1 tab(s), Oral, BID, # 60 tab(s), 3 Refill(s), Start Date: 08/12/14 17:14:45 CDT , Pharmacy: [place] Start Date: 08/12/14 Stop Date: 09/16/14 Status: CompletedMaxair Autohaler 0.2 mg/inh inhalation aerosol 2 puff(s), Inhale, q4hr interval, 0 Refill(s) Start Date: 12/24/13 Stop Date: 01/11/14 Status: DiscontinuedmetFORMIN 500 mg oral tablet 2 tab(s), Oral, BID, # 360 tab(s), 1 Refill(s), Start Date: 10/13/15 9:42:53 CDT , Pharmacy: [place] Start Date: 10/13/15 Stop Date: 04/10/16 Status: CompletedmetFORMIN 500 mg oral tablet 2 tab(s), Oral, BID, 0 Refill(s), Start Date: 12/24/13 9:43:00 CDT Start Date: 12/24/13 Stop Date: 04/12/14 Status: DiscontinuedmetFORMIN 500 mg oral tablet 2 tab(s), Oral, BID, # 360 tab(s), 3 Refill(s), Start Date: 09/16/14 18:17:39 CDT, Pharmacy: [place] Start Date: 09/16/14 Stop Date: 10/13/15 Status: CompletedmetFORMIN 500 mg oral tablet 2 tab(s), Oral, BID, # 360 tab(s), 1 Refill(s), Start Date: 04/10/16 10:45:17 [employer], Pharmacy: [place] Start Date: 04/10/16 Status: OrderedmetFORMIN 500 mg oral tablet 2 tab(s), Oral, BID, # 120 tab(s), 2 Refill(s), Start Date: 05/13/14 15:29:16 [employer], Pharmacy: [facility] [place] Start Date: 05/13/14 Stop Date: 08/12/14 Status: CompletedmetFORMIN 500 mg oral tablet 2 tab(s), Oral, BID, # 120 tab(s), 3 Refill(s), Start Date: 08/12/14 17:14:47 CDT, Pharmacy: [place] Start Date: 08/12/14 Stop Date: 09/16/14 Status: CompletedmetFORMIN 500 mg oral tablet 2 tab(s), Oral, BID, # 120 tab(s), 0 Refill(s), Start Date: 04/12/14 15:26:54 [employer], Pharmacy: [place] Start Date: 04/12/14 Stop Date: 05/13/14 Status: Completedmethocarbamol 750 mg oral tablet 1 tab(s), Oral, QID, # 120 tab(s), 0 Refill(s), Start Date: 04/12/14 15:26:53 [employer], Pharmacy: [place] Start Date: 04/12/14 Stop Date: 05/13/14 Status: Completedmethocarbamol 750 mg oral tablet 1 tab(s), Oral, QID, 0 Refill(s) Start Date: 12/24/13 Stop Date: 04/12/14 Status: Discontinuedmethocarbamol 750 mg oral tablet 1 tab(s), Oral, QID, # 120 tab(s), 2 Refill(s), Start Date: 05/13/14 15:29:20 [employer], Pharmacy: [place] Start Date: 05/13/14 Stop Date: 05/21/14 Status: DiscontinuedMetoprolol Tartrate 25 mg oral tablet 1 tab(s), Oral, BID, # 60 tab(s), 4 Refill(s), Start Date: 05/13/14 15:29:18 [employer] , Pharmacy: [place] Start Date: 05/13/14 Stop Date: 11/04/14 Status: CompletedMetoprolol Tartrate 25 mg oral tablet 1 tab(s), Oral, BID, 0 Refill(s) Start Date: 12/24/13 Stop Date: 04/12/14 Status: DiscontinuedMetoprolol Tartrate 25 mg oral tablet 1 tab(s), Oral, BID, # 60 tab(s), 5 Refill(s), Start Date: 01/11/15 17:54:00 CDT , Pharmacy: [place] Start Date: 01/11/15 Stop Date: 08/16/15 Status: CompletedMetoprolol Tartrate 25 mg oral tablet 1 tab(s), Oral, BID, # 60 tab(s), 0 Refill(s), Start Date: 04/12/14 15:26:55 [employer] , Pharmacy: [place] Start Date: 04/12/14 Stop Date: 05/13/14 Status: CompletedMetoprolol Tartrate 25 mg oral tablet 1 tab(s), Oral, BID, Appt due in November, # 60 tab(s), 1 Refill(s), Start Date: 06/20 16:52:55 CDT, Pharmacy: [place] Special Instructions: Appt due in November Start Date: 11/04/14 Stop Date: 01/11/15 Status: CompletedMetoprolol Tartrate 25 mg oral tablet 1 tab(s), Oral, BID, # 60 tab(s), 1 Refill(s), Start Date: 08/16/15 15:37:00 CDT , Pharmacy: [facility] [place] Start Date: 08/16/15 Stop Date: 10/13/15 Status: CompletedMetoprolol Tartrate 25 mg oral tablet 1 tab(s), Oral, BID, # 180 tab(s), 1 Refill(s), Start Date: 10/13/15 9:46:39 CDT , Pharmacy: [place] Start Date: 10/13/15 Stop Date: 12/27/15 Status: DiscontinuedMetoprolol Tartrate 50 mg oral tablet 1 tab(s), Oral, BID, DOSE INCREASE, # 180 tab(s), 3 Refill(s), Start Date: 12/26 11:07:00 CDT, Pharmacy: [place] Special Instructions: DOSE INCREASE Start Date: 12/27/15 Status: OrderedMisc Prescription Misc Prescription, See Instructions, Easy Touch pen needles 5/16, use once daily. DX E11.9, # 100 EA, 1 Refill(s), Pharmacy: [place] , Compound Special Instructions: Easy Touch [...] 0 Refill(s), Start Date: 04/09/14 13: 44:00 [employer] Special Instructions: One tablet twice daily Start Date: 04/09/14 Stop Date: 04/21/14 Status: Discontinuednabumetone 750 mg oral tablet 2 tab(s), Oral, BID, # 120 tab(s), 5 Refill(s), Start Date: 08/19/14 13:47:59 CDT, Pharmacy: [place] Start Date: 08/19/14 Stop Date: 12/09/14 Status: Completednabumetone 750 mg oral tablet 2 tab(s), Oral, BID, # 60 tab(s), 2 Refill(s), Start Date: 05/21/14 13:07:38 [employer] , Pharmacy: [place], [place] Start Date: 05/21/14 Stop Date: 08/12/14 Status: Completednabumetone 750 mg oral tablet 2 tab(s), Oral, BID, with food, # 120 tab(s), 5 Refill(s), Start Date: 02/08/16 14:31:49 CDT, Pharmacy: [place], [place] Special Instructions: with food Start Date: 02/08/16 Status: Orderednabumetone 750 mg oral tablet 2 tab(s), Oral, BID, with food, # 120 tab(s), 5 Refill(s), Start Date: 06/09/15 13:54:00 [employer], Pharmacy: [place], [place] Special Instructions: with food Start Date: 2/4/16 Stop Date: 02/08/16 Status: Completednabumetone 750 mg oral tablet 2 tab(s), Oral, BID, # 120 tab(s), 3 Refill(s), Start Date: 08/12/14 17:14:46 CDT, Pharmacy: [place], [place] Start Date: 08/12/14 Stop Date: 08/19/14 Status: Discontinuednabumetone 750 mg oral tablet 2 tab(s), Oral, BID, # 120 tab(s), 5 Refill(s), Start Date: 12/09/14 17:53:00 CDT, Pharmacy: [place], [place] Start Date: 12/09/14 Stop Date: 06/09/15 Status: Completednabumetone 750 mg oral tablet 2 tab(s), Oral, BID, # 60 tab(s), 2 Refill(s), Start Date: 04/21/14 10:40:00 [employer] , Pharmacy: [place] Start Date: 04/21/14 Stop Date: 05/21/14 [...] Start Date: 12/09/14 17:53:00 CDT , Pharmacy: [place] Start Date: 12/09/14 Stop Date: 06/09/15 Status: Completednortriptyline 50 mg oral capsule 3 cap(s), Oral, HS, # 90 cap(s), 5 Refill(s), Start Date: 12/19/15 14:21:04 CDT , Pharmacy: [facility], [place] Start Date: 12/19/15 Stop Date: 06/13/16 Status: Completednortriptyline 50 mg oral capsule 3 cap(s), Oral, HS, 0 Refill(s) Start Date: 12/24/13 Stop Date: 04/12/14 Status: Discontinuednortriptyline 50 mg oral capsule 3 cap(s), Oral, HS, # 90 cap(s), 5 Refill(s), Start Date: 06/13/16 11:26:03 [employer] , Pharmacy: [facility] [place] Start Date: 06/13/16 Status: Orderednortriptyline 50 mg oral capsule 3 cap(s), Oral, HS, # 90 cap(s), 3 Refill(s), Start Date: 08/12/14 17:14:44 CDT , Pharmacy: [facility] [place] Start Date: 08/12/14 Stop Date: 12/09/14 Status: Completednortriptyline 50 mg oral capsule 3 cap(s), Oral, HS, # 90 cap(s), 2 Refill(s), Start Date: 05/13/14 15:29:17 [employer] , Pharmacy: [facility] [place] Start Date: 05/13/14 Stop Date: 08/12/14 Status: Completednortriptyline 50 mg oral capsule 3 cap(s), Oral, HS, # 90 cap(s), 5 Refill(s), Start Date: 06/09/15 13:54:00 [employer] , Pharmacy: [facility] [place] Start Date: 06/09/15 Stop Date: 12/19/15 Status: Completednortriptyline 50 mg oral capsule 3 cap(s), Oral, HS, # 90 cap(s), 0 Refill(s), Start Date: 04/12/14 15:26:55 [employer] , Pharmacy: [facility] [place] Start Date: 04/12/14 Stop Date: 05/13/14 Status: Completedomeprazole 20 mg oral delayed release capsule 1 cap(s), Oral, BID, # 60 cap(s), 5 Refill(s), Start Date: 09/21/15 14:54:43 CDT , Pharmacy: [place] Start Date: 09/21/15 Stop Date: 04/10/16 Status: Completedomeprazole 20 mg oral delayed release capsule 1 cap(s), Oral, BID, # 60 cap(s), 5 Refill(s), Start Date: 09/07/14 16:08:52 CDT , Pharmacy: [place] Start Date: 09/07/14 Stop Date: 03/14/15 Status: Completedomeprazole 20 mg oral delayed release capsule 1 cap(s), Oral, BID, # 60 cap(s), 0 Refill(s), Start Date: 04/12/14 15:26:52 [employer] , Pharmacy: [place] Start Date: 04/12/14 Stop Date: 05/13/14 Status: Completedomeprazole 20 mg oral delayed release capsule 1 cap(s), Oral, BID, # 60 cap(s), 5 Refill(s), Start Date: 03/14/15 12:04:00 [employer] , Pharmacy: [place] Start Date: 03/14/15 Stop Date: 09/21/15 Status: Completedomeprazole 20 mg oral delayed release capsule 1 cap(s), Oral, BID, # 60 cap(s), 5 Refill(s), Start Date: 04/10/16 10:44:06 [employer] , Pharmacy: [place] Start Date: 04/10/16 Status: Orderedomeprazole 20 mg oral delayed release capsule 1 cap(s), Oral, Daily, 0 Refill(s) Start Date: 01/11/14 Stop Date: 04/12/14 Status: Discontinuedomeprazole 20 mg oral delayed release capsule 1 cap(s), Oral, BID, # 60 cap(s), 3 Refill(s), Start Date: 05/13/14 15:29:17 [employer] , Pharmacy: [place] Start Date: 05/13/14 Stop Date: 09/07/14 Status: CompletedPen [place] Mini 31G 5mm See Instructions, Use daily with Tresiba and Victoza. DX E11.9, # 200 EA, 1 Refill(s), Pharmacy: [place], [place], Supply Special Instructions: Use daily with Tresiba and Victoza. DX E11.9 Start Date: 08/16/15 Status: OrderedPen [place] Mini 31G 5mm See Instructions, Use daily with Tresiba and Victoza, # 200 EA, 1 Refill(s), Supply Special Instructions: Use daily with Tresiba and Victoza Start Date: 08/16/15 Stop Date: 08/16/15 Status: DiscontinuedPneumovax 23 injectable solution See Instructions, IM ONETIME as directed, # 1 EA, 0 Refill(s), Start Date: 03/05 15:22:00 CDT, Pharmacy: [place] Special Instructions: IM ONETIME as directed Start Date: 03/05/14 Stop Date: 08/19/14 Status: DiscontinuedPneumovax 23 injectable solution 0.5 mL, IM, ONETIME, # 1 mL, 0 Refill(s), Start Date: 03/05/14 15:20:00 CDT Start Date: 03/05/14 Stop Date: 03/05/14 Status: DiscontinuedPristiq 100 mg oral tablet, extended release 1 tab(s), Oral, Daily, # 30 tab(s), 5 Refill(s), Start Date: 12/19/15 14:21:40 CDT, Pharmacy: [place] Start Date: 12/19/15 Stop Date: 06/13/16 Status: CompletedPristiq 100 mg oral tablet, extended release 1 tab(s), Oral, Daily, # 30 tab(s), 5 Refill(s), Start Date: 12/09/14 17:53:00 CDT, Pharmacy: [place] Start Date: 12/09/14 Stop Date: 06/09/15 Status: CompletedPristiq 100 mg oral tablet, extended release 1 tab(s), Oral, Daily, # 30 tab(s), 2 Refill(s), Start Date: 05/13/14 15:29:16 [employer], Pharmacy: [place] Start Date: 05/13/14 Stop Date: 08/12/14 Status: CompletedPristiq 100 mg oral tablet, extended release 1 tab(s), Oral, Daily, # 30 tab(s), 5 Refill(s), Start Date: 06/09/15 13:54:00 [employer], Pharmacy: [place] Start Date: 06/09/15 Stop Date: 12/19/15 Status: CompletedPristiq 100 mg oral tablet, extended release 1 tab(s), Oral, Daily, # 30 tab(s), 0 Refill(s) Start Date: 01/11/14 Stop Date: 04/12/14 Status: DiscontinuedPristiq 100 mg oral tablet, extended release 1 tab(s), Oral, Daily, # 30 tab(s), 0 Refill(s), Start Date: 04/12/14 15:26:54 [employer], Pharmacy: [place] Start Date: 04/12/14 Stop Date: 05/13/14 Status: CompletedPristiq 100 mg oral tablet, extended release 1 tab(s), Oral, Daily, # 30 tab(s), 5 Refill(s), Start Date: 06/13/16 11:23:30 [employer], Pharmacy: [place] Start Date: 06/13/16 Status: OrderedPristiq 100 mg oral tablet, extended release 1 tab(s), Oral, Daily, # 30 tab(s), 3 Refill(s), Start Date: 08/12/14 17:14:47 CDT, Pharmacy: [place] Start Date: 08/12/14 Stop Date: 12/09/14 Status: CompletedPristiq 50 mg oral tablet, extended release 2 tab(s), Oral, Daily, 0 Refill(s) Start Date: 12/24/13 Stop Date: 01/11/14 Status: DiscontinuedSenokot S 50 mg-8.6 mg oral tablet 1 tab(s), Oral, BID, X 7 days, # 14 tab(s), 0 Refill(s), Pharmacy: [place] Start Date: 01/15/14 Stop Date: 01/22/14 Status: CompletedSuprep Bowel Prep Kit oral liquid 1 kit(s), Oral, ONETIME, # 1 kit(s), 0 Refill(s), Start Date: 04/12/15 8:52:00 [employer], Pharmacy: [place] Start Date: 04/12/15 Stop Date: 05/26/15 Status: CompletedSuprep Bowel Prep Kit oral liquid 1 bottles, Oral, BID, Mix 1 btl to 16oz water and drink. Next morning; repeat use second btl. Complete at least 1 hr before colonscopy., # 1 kit(s), 0 Refill (s), Start Date: 04/12/15 8:38:00 [employer], Pharmacy: [place] Special Instructions: Mix 1 btl to 16oz water and drink. Next morning; repeat use second btl. Complete at least 1 hr before colonscopy. Start Date: 04/12/15 Stop Date: 04/13/15 Status: CompletedTest Strips Other (See Comment) 3 Month Supply, Subcutaneous, TID, Truetest glucose test strips. DX E11.9, # 300 EA, 5 Refill(s), Pharmacy: [place], [place], Supply Special Instructions: Truetest glucose test strips. DX E11.9 Start Date: 11/11/15 Status: OrderedTest Strips Other (See Comment) 3 Month Supply, Subcutaneous, TID, Truetest glucose test strips. DX 250.00, # 1 QS, 1 Refill(s), Pharmacy: [place], Supply Special Instructions: Truetest glucose test strips. DX 250.00 Start Date: 05/13/14 Stop Date: 12/16/14 Status: CompletedTest Strips Other (See Comment) 3 Month Supply, Subcutaneous, TID, Truetest glucose test strips. DX E11.9, # 300 EA, 1 Refill(s), Pharmacy: [place], [place], Supply Special Instructions: Truetest glucose test [...] 250.00, # 1 QS, 1 Refill(s), Pharmacy: [place], Supply Special Instructions: Truetest glucose test strips. DX 250.00 Start Date: 12/16/14 Stop Date: 02/09/15 Status: CompletedtraMADol 50 mg oral tablet 1 tab(s), Oral, q6hr interval, PRN pain moderate 4-7, # 60 tab(s), 1 Refill(s), Start Date: 05/21/14 13:07:39 [employer], Pharmacy: [place] Start Date: 05/21/14 Stop Date: 05/24/15 [...] Start Date: 10/13/15 9:45: 32 CDT, Pharmacy: [place] Start Date: 10/13/15 Stop Date: 01/23/16 Status: CompletedTresiba FlexTouch 200 units/mL subcutaneous solution See Instructions, 50 units Subcutaneous Daily, # 1 EA, 2 Refill(s), Start Date: 07/19/15 14:26:00 CDT, Pharmacy: [place] Special Instructions: 50 units Subcutaneous Daily Start Date: 07/19/15 Stop Date: 10/13/15 Status: CompletedTresiba FlexTouch 200 units/mL subcutaneous solution 54 units, Subcutaneous, Daily, # 9 mL, 5 Refill(s), Start Date: 01/23/16 16:48: 41 CDT, Pharmacy: [place] Start Date: 01/23/16 Status: OrderedTylenol 8 HR Arthritis Pain 1,300 mg, Oral, BID, 0 Refill(s), Start Date: 05/16/16 7:29:00 [employer] Start Date: 05/16/16 Status: OrderedTylenol Arthritis Caplet mg, Oral, q8hr interval, 0 Refill(s) Start Date: 12/24/13 Stop Date: 05/16/16 Status: CompletedUnasyn 2 g-1 g injection 3 gm, IV, q6hr interval, # 148 bags, 0 Refill(s) Start Date: 01/15/14 Stop Date: 08/19/14 Status: Discontinuedursodiol 300 mg oral capsule 1 cap(s), Oral, TID, # 90 cap(s), 5 Refill(s), Start Date: 12/19/15 14:20:09 CDT , Pharmacy: [place] Start Date: 12/19/15 Stop Date: 06/16/16 Status: Orderedursodiol 300 mg oral capsule 1 cap(s), Oral, TID, 0 Refill(s) Start Date: 12/24/13 Stop Date: 04/12/14 Status: Discontinuedursodiol 300 mg oral capsule 1 cap(s), Oral, TID, # 90 cap(s), 2 Refill(s), Start Date: 05/13/14 15:29:20 [employer] , Pharmacy: [place] Start Date: 05/13/14 Stop Date: 08/12/14 Status: Completedursodiol 300 mg oral capsule 1 cap(s), Oral, TID, X 30 days, # 90 cap(s), 5 Refill(s), Start Date: 06/09/15 13:54:00 [employer], Pharmacy: [place] Start Date: 06/09/15 Stop Date: 12/19/15 Status: Completedursodiol 300 mg oral capsule 1 cap(s), Oral, TID, # 90 cap(s), 5 Refill(s), Start Date: 12/09/14 17:53:00 CDT , Pharmacy: [place] Start Date: 12/09/14 Stop Date: 06/09/15 Status: Completedursodiol 300 mg oral capsule 1 cap(s), Oral, TID, # 90 cap(s), 3 Refill(s), Start Date: 08/12/14 17:14:47 CDT , Pharmacy: [place] Start Date: 08/12/14 Stop Date: 12/09/14 Status: Completedursodiol 300 mg oral capsule 1 cap(s), Oral, TID, # 90 cap(s), 0 Refill(s), Start Date: 04/12/14 15:26:52 [employer] , Pharmacy: [place] Start Date: 04/12/14 Stop Date: 05/13/14 Status: CompletedVicodin 5 mg-325 mg oral tablet See Instructions, 1-2 tabOral 4- q6hr interval, 0 Refill(s) Special Instructions: 1-2 tabOral 4- q6hr interval Start Date: 01/28/14 Stop Date: 03/05/14 Status: DiscontinuedVictoza 18 mg/3 mL subcutaneous solution 1.8 mg, Subcutaneous, Daily, # 1 QS, 5 Refill(s), Start Date: 11/11/15 8:18:49 CDT, Pharmacy: [place] Start Date: 11/11/15 Stop Date: 05/09/16 Status: OrderedVictoza 18 mg/3 mL subcutaneous solution 0.6 mg, Subcutaneous, Daily, 0.6 mg daily for 7 days then increase to 1.2 mg daily., # 6 mL, 2 Refill(s), Start Date: 07/27/14 12:14:00 CDT, Pharmacy: [place] Special Instructions: 0.6 mg daily for 7 days then increase to 1.2 mg daily. Start Date: 07/27/14 Stop Date: 11/16/14 Status: CompletedVictoza 18 mg/3 mL subcutaneous solution 1.2 mg, Subcutaneous, Daily, # 1 QS, 5 Refill(s), Start Date: 11/16/14 15:52:54 CDT, Pharmacy: [place] Start Date: 11/16/14 Stop Date: 03/30/15 Status: DiscontinuedVictoza 18 mg/3 mL subcutaneous solution 1.8 mg, Subcutaneous, Daily, X 30 days, # 1 QS, 5 Refill(s), Start Date: 11:25:28 [employer], Pharmacy: [place] Start Date: 03/30/15 Stop Date: 11/11/15 Status: CompletedVitamin D3 1000 intl units oral tablet 1 tab(s), Oral, Daily, # 30 tab(s), 0 Refill(s), Start Date: 05/24/15 11:56:00 [employer] Start Date: 05/24/15 Stop Date: 12/28/15 Status: DiscontinuedVitamin D3 2000 intl units oral tablet 2 tab(s), Oral, Daily, # 60 tab(s), 0 Refill(s), Start Date: 12/28/15 15:55:00 CDT Start Date: 12/28/15 Status: OrderedZostavax subcutaneous injection See Instructions, Subcutaneous ONETIME as directed, # 1 EA, 0 Refill(s), Start Date: 03/05/14 15:20:00 CDT, Pharmacy: [place] Special Instructions: Subcutaneous ONETIME as directed Start Date: 03/05/14 Stop Date: 08/19/14 Status: DiscontinuedZostavax subcutaneous injection 1 EA, Subcutaneous, ONETIME, # 1 EA, 0 Refill(s), Start Date: 03/05/14 15:19:00 CDT Start Date: 03/05/14 Stop Date: 03/05/14 Status: Discontinued Results Patient Viewable Results Most recent to oldest 1 2 3 [Reference Range]: AN - Fi O2 75 % % 73 % % 78 % % (06/15/16 11:40 AM) (06/15/16 11:35 AM) (06/15/16 11:30 AM) Estimated Creatinine 135.77 mL/min Clearance (06/15/16 8:33 AM) Whole Blood Glucose [70-108 136 mg/dL1 mg/dL] *HI* (06/15/16 9:11 AM) 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: [id number] Vianey Rider RN Immunizations No data available for this section Procedures Procedure Date Related Diagnosis Body Site Colonoscopy1 06/15/16 Colonoscopy2 05/26/15 Esophagogastroduodenoscopy3 05/26/15 Transurethral Resection Prostate4 02/01/14 Tendonesis (Left, Foot L)5 01/12/14 Cystoscopy 01/01/14 Ear drum6 2011 Gastric biopsy 2012 Polyp of vocal cord7 2010 Amputation of toe [id number] 1auto-populated from documented surgical [id number] from documented surgical [id number] from documented surgical [id number] from documented surgical [id number] from documented surgical [id number] Social History No data available for this section Assessment and Plan No data available for this section
--- OUTSIDE RECORDS SUMMARY | 2016-08-31 11:09 | XMS REPORT | Summary of Care ---
:1955 Author Organization [facility] Address [address] [place] [address] Care Team Providers Name Role Phone Mathieu Wilson Primary Care Physician Encounter Date(s): 06/21/16 - 06/21/16 [facility] [address] [place], [place] [address] Discharge Diagnosis: Chronic pain Discharge Diagnosis: Hyperlipidemia Discharge Diagnosis: Chronic back pain Discharge Diagnosis: Diabetes mellitus type 2 Discharge Diagnosis: COPD Discharge Diagnosis: Chronic joint pain Discharge Diagnosis: Hypertension Discharge Disposition: 01 Discharged to Home or Self Care Attending Physician: Mathieu Wilson MD Referring Physician: Mathieu Wilson MD Vital Signs Most recent to oldest [Reference Range]: 1 Peripheral Pulse Rate [60-100 bpm] 77 bpm (06/21/16 1:30 PM) SpO2 [90-100 %] 97 % (06/21/16 1:30 PM) SpO2 Location Left hand (06/21/16 1:30 PM) Blood Pressure [90-130/60-90 mmHg] 164/78mmHg *HI* (06/21/16 1:30 PM) Mean Arterial Pressure, Cuff 107 mmHg (06/21/16 1:30 PM) Most recent to oldest [Reference Range]: 1 Height/Length Measured 185 cm (06/21/16 1:30 PM) Weight Dosing 158.5 kg (06/21/16 1:30 PM) Weight Measured 158.5 kg (06/21/16 1:30 PM) BSA Measured 2.72 m2 (06/21/16 1:30 PM) Body Mass Index Measured 46.31 kg/m2 (06/21/16 1:30 PM) Problem List Condition Effective Dates Status Health [...] Reactions, Alerts Substance Reaction Severity Status penicillins [id number] 19:24:09<$> Active Tape rash Severe Active Medications albuterol CFC free 90 mcg/inh inhalation aerosol 2 puff(s), Inhale, q4hr, PRN shortness of breath or wheezing, # 1 EA, 0 Refill(s ), Pharmacy: [place], [place] Start Date: 01/15/14 Stop Date: 02/14/14 Status: OrderedamLODIPine 10 mg oral tablet 1 tab(s), Oral, Daily, dose increase, # 30 tab(s), 5 Refill(s), Start Date: 02/18 13:20:00 BACK FACER, Pharmacy: [place], [place] Special Instructions: dose increase Start Date: 03/15/16 Status: OrderedamLODIPine 5 mg oral tablet 1 tab(s), Oral, Daily, # 90 tab(s), 1 Refill(s), Start Date: 10/13/15 9:44:20 CDT, Pharmacy: [place], [place] Start Date: 10/13/15 Stop Date: 03/15/16 Status: DiscontinuedamLODIPine 5 mg oral tablet 1 tab(s), Oral, Daily, X 30 days, # 30 tab(s), 2 Refill(s), Start Date: 13:13:00 BACK FACER, Pharmacy: [place] Start Date: 03/30/15 Stop Date: 07/12/15 Status: CompletedamLODIPine 5 mg oral tablet 1 tab(s), Oral, Daily, X 30 days, # 30 tab(s), 1 Refill(s), Start Date: 12:04:00 BACK FACER, Pharmacy: [place] Start Date: 07/12/15 Stop Date: 10/13/15 Status: CompletedByetta Prefilled Pen 5 mcg/0.02 mL subcutaneous solution 0.02, Subcutaneous, BID, 0 Refill(s) Start Date: 12/24/13 Stop Date: 04/12/14 Status: DiscontinuedByetta Prefilled Pen 5 mcg/0.02 mL subcutaneous solution 5 mcg, Subcutaneous, BID, 30 day supply, # 1 QS, 2 Refill(s), Start Date: 11:25:24 BACK FACER, Pharmacy: [place], [place] Special Instructions: insurance refused coverage--switched to Victoza Start Date: 06/18/14 Stop Date: 07/27/14 Status: DiscontinuedByetta Prefilled Pen 5 mcg/0.02 mL subcutaneous solution 0.02, Subcutaneous, BID, 30 day supply, # 1 QS, 0 Refill(s), Start Date: 15:26:54 BACK FACER, Pharmacy: [place], [place] Special Instructions: 30 day supply Start Date: 04/12/14 Stop Date: 06/18/14 Status: CompletedCentrum Silver oral tablet 1 tab(s), Oral, Daily, 0 Refill(s) Start Date: 01/10/14 Stop Date: 01/11/14 Status: Discontinuedcephalexin 250 mg oral capsule 1 cap(s), Oral, QID, # 40 cap(s), 0 Refill(s), Start Date: 08/15/15 14:16:00 CDT , Pharmacy: [place], [place] Start Date: 08/15/15 Stop Date: 01/06/16 Status: Completedcholecalciferol 50,000 intl units oral capsule 1 cap(s), Oral, q7day, # 8 cap(s), 0 Refill(s), Start Date: 08/23/14 8:17:00 CDT , Pharmacy: [place] Start Date: 08/23/14 Stop Date: 05/24/15 Status: CompletedCialis 20 mg oral tablet 0.5 tab(s), Oral, Daily, # 8 tab(s), 0 Refill(s), Start Date: 02/19/14 10:47:00 CDT, samples given to patient (Rx), [id number], 08/04/14 Start Date: 02/19/14 Stop Date: 08/19/14 Status: DiscontinuedCialis 20 mg oral tablet 0.5 tab(s), Oral, Daily, # 8 tab(s), 0 Refill(s), Start Date: 08/19/14 13:49:20 CDT, Pharmacy: [place], [place], [id number], 08/04/14 Start Date: 08/19/14 Stop Date: 05/24/15 Status: CompletedCialis 5 mg oral tablet 1 tab(s), Oral, Daily, PRN for erectile dysfunction, # 30 tab(s), 0 Refill(s), samples given to patient (Rx), [id number], 04/05/16 Start Date: 12/24/13 Stop Date: 03/05/14 Status: DiscontinuedCipro 500 mg oral tablet 1 tab(s), Oral, q12hr, # 20 tab(s), 0 Refill(s), Start Date: 09/26/15 13:39:00 CDT, Pharmacy: [place] Start Date: 09/26/15 Stop Date: 10/12/15 Status: CompletedCipro 500 mg oral tablet 1 tab(s), Oral, q12hr, # 28 tab(s), 0 Refill(s), Start Date: 10/12/15 10:51:00 CDT, Pharmacy: [place] Start Date: 10/12/15 Stop Date: 01/06/16 [...] Start Date: 09/26/15 13:39:00 CDT , Pharmacy: [place] Start Date: 09/26/15 Stop Date: 10/12/15 Status: Completedcranberry oral tablet 1 tab, Oral, Daily, 0 Refill(s), Start Date: 05/16/16 7:33:00 BACK FACER Start Date: 05/16/16 Status: Orderedcyclobenzaprine 5 mg oral tablet 1 tab(s), Oral, TID, # 90 tab(s), 3 Refill(s), Start Date: 07/13/14 10:47:23 CDT , Pharmacy: [place] Start Date: 07/13/14 Stop Date: 11/04/14 Status: Completedcyclobenzaprine 5 mg oral tablet 1 tab(s), Oral, TID, X 30 days, # 90 tab(s), 1 Refill(s), Start Date: 05/21/14 13:15:00 BACK FACER, Pharmacy: [place] Start Date: 05/21/14 Stop Date: 07/13/14 Status: Completedcyclobenzaprine 5 mg oral tablet 1 tab(s), Oral, TID, # 90 tab(s), 5 Refill(s), Start Date: 03/14/15 12:04:00 BACK FACER , Pharmacy: [place] Start Date: 03/14/15 Stop Date: 11/16/15 Status: Completedcyclobenzaprine 5 mg oral tablet 1 tab(s), Oral, TID, # 90 tab(s), 5 Refill(s), Start Date: 11/16/15 16:28:38 CDT , Pharmacy: [place] Start Date: 11/16/15 Status: Orderedcyclobenzaprine 5 mg oral tablet 1 tab(s), Oral, TID, # 90 tab(s), 3 Refill(s), Start Date: 11/04/14 16:52:55 CDT , Pharmacy: [place] Start Date: 11/04/14 Stop Date: 03/14/15 Status: Completedesomeprazole 20 mg oral delayed release capsule cap(s), Oral, Daily, 0 Refill(s) Start Date: 12/24/13 Stop Date: 01/11/14 Status: Discontinuedfenofibrate 145 mg oral tablet 1 tab(s), Oral, Daily, # 30 tab(s), 5 Refill(s), Start Date: 12/19/15 14:20:40 CDT, Pharmacy: [facility], [place] Start Date: 12/19/15 Stop Date: 06/13/16 Status: Completedfenofibrate 145 mg oral tablet 1 tab(s), Oral, Daily, # 30 tab(s), 2 Refill(s), Start Date: 05/13/14 15:29:18 BACK FACER, Pharmacy: [facility], [place] Start Date: 05/13/14 Stop Date: 08/12/14 Status: Completedfenofibrate 145 mg oral tablet 1 tab(s), Oral, Daily, # 30 tab(s), 0 Refill(s), Start Date: 04/12/14 15:26:55 BACK FACER, Pharmacy: [facility], [place] Start Date: 04/12/14 Stop Date: 05/13/14 Status: Completedfenofibrate 145 mg oral tablet 1 tab(s), Oral, Daily, 0 Refill(s) Start Date: 01/11/14 Stop Date: 04/12/14 Status: Discontinuedfenofibrate 145 mg oral tablet 1 tab(s), Oral, Daily, # 30 tab(s), 5 Refill(s), Start Date: 12/09/14 17:53:00 CDT, Pharmacy: [facility] [place] Start Date: 12/09/14 Stop Date: 06/09/15 Status: Completedfenofibrate 145 mg oral tablet 1 tab(s), Oral, Daily, # 30 tab(s), 5 Refill(s), Start Date: 06/09/15 13:54:00 BACK FACER, Pharmacy: [facility], [place] Start Date: 06/09/15 Stop Date: 12/19/15 Status: Completedfenofibrate 145 mg oral tablet 1 tab(s), Oral, Daily, # 30 tab(s), 5 Refill(s), Start Date: 06/13/16 11:22:46 BACK FACER, Pharmacy: [place] Start Date: 06/13/16 Status: Orderedfenofibrate 145 mg oral tablet 1 tab(s), Oral, Daily, # 30 tab(s), 3 Refill(s), Start Date: 08/12/14 17:14:48 CDT, Pharmacy: [facility], [place] Start Date: 08/12/14 Stop Date: 12/09/14 Status: Completedfenofibrate 54 mg oral tablet 1 tab(s), Oral, HS, 0 Refill(s) Start Date: 01/10/14 Stop Date: 01/11/14 Status: Discontinuedfluticasone 50 mcg/inh nasal spray 1 spray(s), Nasal, BID, PRN allergy symptoms, X 30 days, # 1 EA, 5 Refill(s), Start Date: 12/19/15 14:22:29 CDT, Pharmacy: [place] Start Date: 12/19/15 Stop Date: 06/13/16 Status: Completedfluticasone 50 mcg/inh nasal spray 1-2 spray(s), Nasal, Daily, 0 Refill(s) Start Date: 12/24/13 Stop Date: 01/11/14 Status: Discontinuedfluticasone 50 mcg/inh nasal spray 1 spray(s), Nasal, BID, PRN allergy symptoms, X 30 days, # 1 EA, 5 Refill(s), Start Date: 06/02/15 13:11:00 BACK FACER, Pharmacy: [place] Start Date: 06/02/15 Stop Date: 12/19/15 Status: Completedfluticasone 50 mcg/inh nasal spray 1 puff(s), Nasal, Daily, # 1 EA, 0 Refill(s), Pharmacy: [place] Start Date: 01/15/14 Stop Date: 08/19/14 Status: Discontinuedfluticasone 50 mcg/inh nasal spray 1 spray(s), Nasal, BID, PRN allergy symptoms, # 1 EA, 5 Refill(s), Start Date: 06/13/16 11:25:06 BACK FACER, Pharmacy: [place] Start Date: 06/13/16 Stop Date: 12/10/16 Status: Orderedgabapentin 800 mg oral tablet See Instructions, Take 1 tab in the morning and 1 tab in the afternoon and 2 tabs HS., # 120 tab(s), 5 Refill(s), Start Date: 12/19/15 14:18:45 CDT, Pharmacy : [place], [place] Special Instructions: Take 1 tab in the morning and 1 tab in the afternoon and 2 tabs HS. Start Date: 12/19/15 Stop Date: 06/13/16 Status: Completedgabapentin 800 mg oral tablet See Instructions, 800 mg in the AM and afternoon.1600 mg at HS., # 1 QS, 4 Refill(s), Start Date: 05/13/14 15:29:17 BACK FACER, Pharmacy: [place] Special Instructions: 800 mg in the [...] Refill(s), Start Date: 08/16/15 15:37:00 CDT, Pharmacy: [place] Special Instructions: 800 mg in the AM and afternoon.1600 mg at HS. Start Date: 08/16/15 Stop Date: 10/13/15 Status: Completedgabapentin 800 mg oral tablet See Instructions, 800 mg in the AM and afternoon.1600 mg at HS., # 120 tab(s), 5 Refill(s), Start Date: 02/09/15 12:11:00 CDT, Pharmacy: [place] Special Instructions: 800 mg in the AM and afternoon.1600 mg at HS. Start Date: 02/09/15 Stop Date: 08/16/15 Status: Completedgabapentin 800 mg oral tablet See Instructions, Take 1 tab in the morning and 1 tab in the afternoon and 2 tabs HS., # 120 tab(s), 5 Refill(s), Start Date: 06/13/16 11:25:31 BACK FACER, Pharmacy : [place] Special Instructions: Take 1 tab in the morning and 1 tab in the afternoon and 2 tabs HS. Start Date: 06/13/16 Status: Orderedgabapentin 800 mg oral tablet 1 tab(s), Oral, TID, # 90 tab(s), 0 Refill(s), Start Date: 04/12/14 15:26:56 BACK FACER , Pharmacy: [place] Start Date: 04/12/14 Stop Date: 05/13/14 Status: Completedgabapentin 800 mg oral tablet See Instructions, 800 mg in the AM and afternoon.1600 mg at HS., # 120 tab(s), 1 Refill(s), Start Date: 10/13/15 9:47:12 CDT, Pharmacy: [place] Special Instructions: 800 mg in the AM and afternoon.1600 mg at HS. Start Date: 10/13/15 Stop Date: 12/19/15 Status: Completedglimepiride 4 mg oral tablet 1 tab(s), Oral, BID, # 60 tab(s), 2 Refill(s), Start Date: 05/13/14 15:29:19 BACK FACER , Pharmacy: [place] Start Date: 05/13/14 Stop Date: 08/12/14 Status: Completedglimepiride 4 mg oral tablet 1 tab(s), Oral, BID, # 180 tab(s), 1 Refill(s), Start Date: 10/13/15 9:43:35 CDT , Pharmacy: [place] Start Date: 10/13/15 Stop Date: 04/10/16 Status: Completedglimepiride 4 mg oral tablet 1 tab(s), Oral, BID, 0 Refill(s) Start Date: 12/24/13 Stop Date: 04/12/14 Status: Discontinuedglimepiride 4 mg oral tablet 1 tab(s), Oral, BID, # 60 tab(s), 0 Refill(s), Start Date: 04/12/14 15:26:53 BACK FACER , Pharmacy: [place] Start Date: 04/12/14 Stop Date: 05/13/14 Status: Completedglimepiride 4 mg oral tablet 1 tab(s), Oral, BID, # 180 tab(s), 3 Refill(s), Start Date: 09/16/14 18:17:38 CDT, Pharmacy: [place] Start Date: 09/16/14 Stop Date: 10/13/15 Status: Completedglimepiride 4 mg oral tablet 1 tab(s), Oral, BID, # 180 tab(s), 1 Refill(s), Start Date: 04/10/16 10:45:43 BACK FACER, Pharmacy: [place] Start Date: 04/10/16 Status: Orderedglimepiride 4 mg oral tablet 1 tab(s), Oral, BID, # 60 tab(s), 3 Refill(s), Start Date: 08/12/14 17:14:45 CDT , Pharmacy: [place] Start Date: 08/12/14 Stop Date: 09/16/14 Status: CompletedGoLYTELY oral powder for reconstitution See Instructions, as directed on package labeling, # 4,000 mL, 0 Refill(s), Start Date: 03/14/16 16:49:00 BACK FACER, Pharmacy: [place] Special Instructions: as directed on package labeling Start Date: 03/14/16 Stop Date: 06/14/16 Status: CompletedGoLYTELY oral powder for reconstitution See Instructions, 240 mL Oral Daily, # 4,000 mL, 0 Refill(s), Start Date: 7:40:00 BACK FACER, Pharmacy: [place] Special Instructions: 240 mL Oral Daily Start Date: 06/14/16 Stop Date: 06/15/16 Status: CompletedGoLYTELY oral powder for reconstitution See Instructions, 240 mL Oral q10min, # 4,000 mL, 0 Refill(s), Start Date: 05/17 9:17:00 BACK FACER, Pharmacy: [place] Special Instructions: 240 mL Oral q10min Start Date: 05/17/16 Stop Date: 06/14/16 Status: Completedheparin flush 10 units/mL intravenous solution 5 mL, IV Push, As Indicated, PRN PICC Maintenance, 0 Refill(s) Start Date: 01/15/14 Stop Date: 03/05/14 Status: DiscontinuedHumaLOG 100 units/mL subcutaneous solution See Instructions, Give 3 units plus sliding scale with evening meal., # 10 mL, 0 Refill(s), Start Date: 04/26/15 16:13:00 BACK FACER, Pharmacy: [place] Special Instructions: Give 3 units plus sliding scale with evening meal. Start Date: 04/26/15 Stop Date: 05/10/15 Status: CompletedHumaLOG 100 units/mL subcutaneous solution See Instructions, Give 3 units plus sliding scale with evening meal., # 10 mL, 5 Refill(s), Start Date: 05/10/15 7:52:00 BACK FACER, Pharmacy: [place] Special Instructions: Give 3 units plus sliding scale with evening meal. Start Date: 05/10/15 Status: Orderedhydrochlorothiazide 12.5 mg oral tablet 1 tab(s), Oral, Daily, X 30 days, # 30 tab(s), 2 Refill(s), Start Date: 14:25:00 CDT, Pharmacy: [place] Start Date: 07/19/15 Stop Date: 08/15/15 Status: Completedhydrochlorothiazide 25 mg oral tablet 1 tab(s), Oral, Daily, # 30 tab(s), 2 Refill(s), Start Date: 08/15/15 13:53:00 CDT, Pharmacy: [place] Start Date: 08/15/15 Stop Date: 11/13/15 Status: Orderedinsulin detemir 100 units/mL subcutaneous solution See Instructions, 20 units in the AM and 30 units PM daily. 30 day supply, Levimer FlexTouch, # 15 mL, 5 Refill(s), Start Date: 01/23/16 17:08:05 CDT, Pharmacy: [place] Special Instructions: 20 units in the AM and 30 units PM daily. 30 day supply, Levimer FlexTouch Start Date: 01/23/16 Stop Date: 05/16/16 Status: Completedinsulin detemir 100 units/mL subcutaneous solution See Instructions, 20 units in the AM and PM daily. 30 day supply, Levimer FlexTouch, # 1 QS, 1 Refill(s), Start Date: 04/12/14 15:26:54 BACK FACER, Pharmacy: [place] Special Instructions: 20 units in the [...] Refill(s), Start Date: 10/11/14 9:46:52 CDT, Pharmacy: [place] Special Instructions: 20 units in the AM and PM daily. 30 day supply, Levimer FlexTouch Start Date: 10/11/14 Stop Date: 05/11/15 Status: Completedinsulin detemir 100 units/mL subcutaneous solution See Instructions, 20 units in the AM and PM daily. 30 day supply, Levimer FlexTouch, # 15 mL, 3 Refill(s), Start Date: 08/12/14 17:14:46 CDT, Pharmacy: [place] Special Instructions: 20 units in the AM and PM daily. 30 day supply, Levimer FlexTouch Start Date: 08/12/14 Stop Date: 10/11/14 Status: Completedinsulin detemir 100 units/mL subcutaneous solution See Instructions, 20 units in the AM and 30 units PM daily. 30 day supply, Levimer FlexTouch, # 15 mL, 11 Refill(s), Start Date: 05/11/15 17:34:00 BACK FACER, Pharmacy: [place] Special Instructions: 20 units in the AM and 30 units PM daily. 30 day supply, Levimer FlexTouch Start Date: 05/11/15 Stop Date: 01/23/16 Status: CompletedInsulin Pen Terril 09/18" 31G 100 Terril, Subcutaneous, Daily, use once daily. DX 250.00. Easy touch pen needles., # 1 QS, 1 Refill(s), Pharmacy: [place], [place], Supply Special Instructions: use once daily. DX 250.00. Easy touch pen needles. Start Date: 09/07/14 Stop Date: 08/16/15 Status: DiscontinuedInsulin Pen Terril 09/18" 31G 100 Terril, Subcutaneous, Daily, use daily. DX 250.00, # 1 QS, 1 Refill(s), Supply Special Instructions: use daily. DX 250.00 Start Date: 09/07/14 Stop Date: 09/07/14 Status: DiscontinuedInsulin Syringes 3/10" 31G 6mm See Instructions, Subcutaneous TID. DX E11.9. Patient states that he needs 50 unit syringes., # 300 EA, 3 Refill(s), Pharmacy: [place], [place] , Supply Special Instructions: Subcutaneous TID. [...] tab(s), 5 Refill(s), Start Date: 03/15/16 13:21:00 BACK FACER, Pharmacy: [place] Start Date: 03/15/16 Status: Orderedlisinopril 40 mg oral tablet 1 tab(s), Oral, BID, # 60 tab(s), 2 Refill(s), Start Date: 05/13/14 15:29:19 BACK FACER , Pharmacy: [facility], [place] Start Date: 05/13/14 Stop Date: 08/12/14 Status: Completedlisinopril 40 mg oral tablet 1 tab(s), Oral, BID, 0 Refill(s) Start Date: 12/24/13 Stop Date: 01/15/14 Status: Discontinuedlisinopril 40 mg oral tablet 1 tab(s), Oral, BID, # 180 tab(s), 1 Refill(s), Start Date: 10/13/15 9:42:12 CDT , Pharmacy: [facility] [place] Start Date: 10/13/15 Stop Date: 04/10/16 Status: Completedlisinopril 40 mg oral tablet 1 tab(s), Oral, Daily, # 30 tab(s), 0 Refill(s), Start Date: 01/15/14 9:26:00 CDT, Pharmacy: [facility] [place] Start Date: 01/15/14 Stop Date: 04/12/14 Status: Completedlisinopril 40 mg oral tablet 1 tab(s), Oral, BID, # 60 tab(s), 0 Refill(s), Start Date: 04/12/14 15:26:53 BACK FACER , Pharmacy: [facility] [place] Start Date: 04/12/14 Stop Date: 05/13/14 Status: Completedlisinopril 40 mg oral tablet 1 tab(s), Oral, BID, # 180 tab(s), 3 Refill(s), Start Date: 09/16/14 18:17:38 CDT, Pharmacy: [facility] [place] Start Date: 09/16/14 Stop Date: 10/13/15 Status: Completedlisinopril 40 mg oral tablet 1 tab(s), Oral, BID, # 180 tab(s), 1 Refill(s), Start Date: 04/10/16 10:44:40 BACK FACER, Pharmacy: [facility] [place] Start Date: 04/10/16 Status: Orderedlisinopril 40 mg oral tablet 1 tab(s), Oral, BID, # 60 tab(s), 3 Refill(s), Start Date: 08/12/14 17:14:45 CDT , Pharmacy: [facility] [place] Start Date: 08/12/14 Stop Date: 09/16/14 Status: CompletedMaxair Autohaler 0.2 mg/inh inhalation aerosol 2 puff(s), Inhale, q4hr interval, 0 Refill(s) Start Date: 12/24/13 Stop Date: 01/11/14 Status: DiscontinuedmetFORMIN 500 mg oral tablet 2 tab(s), Oral, BID, # 360 tab(s), 1 Refill(s), Start Date: 10/13/15 9:42:53 CDT , Pharmacy: [facility] [place] Start Date: 10/13/15 Stop Date: 04/10/16 Status: CompletedmetFORMIN 500 mg oral tablet 2 tab(s), Oral, BID, 0 Refill(s), Start Date: 12/24/13 9:43:00 CDT Start Date: 12/24/13 Stop Date: 04/12/14 Status: DiscontinuedmetFORMIN 500 mg oral tablet 2 tab(s), Oral, BID, # 360 tab(s), 3 Refill(s), Start Date: 09/16/14 18:17:39 CDT, Pharmacy: [facility] [place] Start Date: 09/16/14 Stop Date: 10/13/15 Status: CompletedmetFORMIN 500 mg oral tablet 2 tab(s), Oral, BID, # 360 tab(s), 1 Refill(s), Start Date: 04/10/16 10:45:17 BACK FACER, Pharmacy: [facility] [place] Start Date: 04/10/16 Status: OrderedmetFORMIN 500 mg oral tablet 2 tab(s), Oral, BID, # 120 tab(s), 2 Refill(s), Start Date: 05/13/14 15:29:16 BACK FACER, Pharmacy: [facility] [place] Start Date: 05/13/14 Stop Date: 08/12/14 Status: CompletedmetFORMIN 500 mg oral tablet 2 tab(s), Oral, BID, # 120 tab(s), 3 Refill(s), Start Date: 08/12/14 17:14:47 CDT, Pharmacy: [facility] [place] Start Date: 08/12/14 Stop Date: 09/16/14 Status: CompletedmetFORMIN 500 mg oral tablet 2 tab(s), Oral, BID, # 120 tab(s), 0 Refill(s), Start Date: 04/12/14 15:26:54 BACK FACER, Pharmacy: [place] Start Date: 04/12/14 Stop Date: 05/13/14 Status: Completedmethocarbamol 750 mg oral tablet 1 tab(s), Oral, QID, # 120 tab(s), 0 Refill(s), Start Date: 04/12/14 15:26:53 BACK FACER, Pharmacy: [place] Start Date: 04/12/14 Stop Date: 05/13/14 Status: Completedmethocarbamol 750 mg oral tablet 1 tab(s), Oral, QID, 0 Refill(s) Start Date: 12/24/13 Stop Date: 04/12/14 Status: Discontinuedmethocarbamol 750 mg oral tablet 1 tab(s), Oral, QID, # 120 tab(s), 2 Refill(s), Start Date: 05/13/14 15:29:20 BACK FACER, Pharmacy: [place] Start Date: 05/13/14 Stop Date: 05/21/14 Status: DiscontinuedMetoprolol Tartrate 25 mg oral tablet 1 tab(s), Oral, BID, # 60 tab(s), 4 Refill(s), Start Date: 05/13/14 15:29:18 BACK FACER , Pharmacy: [place] Start Date: 05/13/14 Stop Date: 11/04/14 Status: CompletedMetoprolol Tartrate 25 mg oral tablet 1 tab(s), Oral, BID, 0 Refill(s) Start Date: 12/24/13 Stop Date: 04/12/14 Status: DiscontinuedMetoprolol Tartrate 25 mg oral tablet 1 tab(s), Oral, BID, # 60 tab(s), 5 Refill(s), Start Date: 01/11/15 17:54:00 CDT , Pharmacy: [place] Start Date: 01/11/15 Stop Date: 08/16/15 Status: CompletedMetoprolol Tartrate 25 mg oral tablet 1 tab(s), Oral, BID, # 60 tab(s), 0 Refill(s), Start Date: 04/12/14 15:26:55 BACK FACER , Pharmacy[place] Start Date: 04/12/14 Stop Date: 05/13/14 Status: CompletedMetoprolol Tartrate 25 mg oral tablet 1 tab(s), Oral, BID, Appt due in November, # 60 tab(s), 1 Refill(s), Start Date: 06/20 16:52:55 CDT, Pharmacy: [place] Special Instructions: Appt due in November Start Date: 11/04/14 Stop Date: 01/11/15 Status: CompletedMetoprolol Tartrate 25 mg oral tablet 1 tab(s), Oral, BID, # 60 tab(s), 1 Refill(s), Start Date: 08/16/15 15:37:00 CDT , Pharmacy: [place] Start Date: 08/16/15 Stop Date: 10/13/15 Status: CompletedMetoprolol Tartrate 25 mg oral tablet 1 tab(s), Oral, BID, # 180 tab(s), 1 Refill(s), Start Date: 10/13/15 9:46:39 CDT , Pharmacy: [place] Start Date: 10/13/15 Stop Date: 12/27/15 Status: DiscontinuedMetoprolol Tartrate 50 mg oral tablet 1 tab(s), Oral, BID, DOSE INCREASE, # 180 tab(s), 3 Refill(s), Start Date: 12/26 11:07:00 CDT, Pharmacy: [place] Special Instructions: DOSE INCREASE Start Date: 12/27/15 Status: OrderedMisc Prescription [facility] Prescription, See Instructions, Easy Touch pen needles 5/16, use once daily. DX E11.9, # 100 EA, 1 Refill(s), Pharmacy: [place] , Compound Special Instructions: Easy Touch [...] 0 Refill(s), Start Date: 04/09/14 13: 44:00 BACK FACER Special Instructions: One tablet twice daily Start Date: 04/09/14 Stop Date: 04/21/14 Status: Discontinuednabumetone 750 mg oral tablet 2 tab(s), Oral, BID, # 120 tab(s), 5 Refill(s), Start Date: 08/19/14 13:47:59 CDT, Pharmacy: [place] Start Date: 08/19/14 Stop Date: 12/09/14 Status: Completednabumetone 750 mg oral tablet 2 tab(s), Oral, BID, # 60 tab(s), 2 Refill(s), Start Date: 05/21/14 13:07:38 BACK FACER , Pharmacy[place] Start Date: 05/21/14 Stop Date: 08/12/14 Status: Completednabumetone 750 mg oral tablet 2 tab(s), Oral, BID, with food, # 120 tab(s), 5 Refill(s), Start Date: 02/08/16 14:31:49 CDT, Pharmacy: [place] Special Instructions: with food Start Date: 02/08/16 Status: Orderednabumetone 750 mg oral tablet 2 tab(s), Oral, BID, with food, # 120 tab(s), 5 Refill(s), Start Date: 06/09/15 13:54:00 BACK FACER, Pharmacy: [place] Special Instructions: with food Start Date: 06/09/15 Stop Date: 02/08/16 Status: Completednabumetone 750 mg oral tablet 2 tab(s), Oral, BID, # 120 tab(s), 3 Refill(s), Start Date: 08/12/14 17:14:46 CDT, Pharmacy: [place], [place] Start Date: 08/12/14 Stop Date: 08/19/14 Status: Discontinuednabumetone 750 mg oral tablet 2 tab(s), Oral, BID, # 120 tab(s), 5 Refill(s), Start Date: 12/09/14 17:53:00 CDT, Pharmacy: [place], [place] Start Date: 12/09/14 Stop Date: 06/09/15 Status: Completednabumetone 750 mg oral tablet 2 tab(s), Oral, BID, # 60 tab(s), 2 Refill(s), Start Date: 04/21/14 10:40:00 BACK 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 , Pharmacy: [place], [place] Start Date: 04/21/14 Stop Date: 05/21/14 [...] Start Date: 12/09/14 17:53:00 CDT , Pharmacy: [place], [place] Start Date: 12/09/14 Stop Date: 06/09/15 Status: Completednortriptyline 50 mg oral capsule 3 cap(s), Oral, HS, # 90 cap(s), 5 Refill(s), Start Date: 12/19/15 14:21:04 CDT , Pharmacy: [place], [place] Start Date: 12/19/15 Stop Date: 06/13/16 Status: Completednortriptyline 50 mg oral capsule 3 cap(s), Oral, HS, 0 Refill(s) Start Date: 12/24/13 Stop Date: 04/12/14 Status: Discontinuednortriptyline 50 mg oral capsule 3 cap(s), Oral, HS, # 90 cap(s), 5 Refill(s), Start Date: 06/13/16 11:26:03 BACK FACER , Pharmacy: [facility], [place] Start Date: 06/13/16 Status: Orderednortriptyline 50 mg oral capsule 3 cap(s), Oral, HS, # 90 cap(s), 3 Refill(s), Start Date: 08/12/14 17:14:44 CDT , Pharmacy: [facility], [place] Start Date: 08/12/14 Stop Date: 12/09/14 Status: Completednortriptyline 50 mg oral capsule 3 cap(s), Oral, HS, # 90 cap(s), 2 Refill(s), Start Date: 05/13/14 15:29:17 BACK FACER , Pharmacy: [facility], [place] Start Date: 05/13/14 Stop Date: 08/12/14 Status: Completednortriptyline 50 mg oral capsule 3 cap(s), Oral, HS, # 90 cap(s), 5 Refill(s), Start Date: 06/09/15 13:54:00 BACK FACER , Pharmacy: [facility], [place] Start Date: 06/09/15 Stop Date: 12/19/15 Status: Completednortriptyline 50 mg oral capsule 3 cap(s), Oral, HS, # 90 cap(s), 0 Refill(s), Start Date: 04/12/14 15:26:55 BACK FACER , Pharmacy: [facility], [place] Start Date: 04/12/14 Stop Date: 05/13/14 Status: Completedomeprazole 20 mg oral delayed release capsule 1 cap(s), Oral, BID, # 60 cap(s), 5 Refill(s), Start Date: 09/21/15 14:54:43 CDT , Pharmacy: [facility], [place] Start Date: 09/21/15 Stop Date: 04/10/16 Status: Completedomeprazole 20 mg oral delayed release capsule 1 cap(s), Oral, BID, # 60 cap(s), 5 Refill(s), Start Date: 09/07/14 16:08:52 CDT , Pharmacy: [facility], [place] Start Date: 09/07/14 Stop Date: 03/14/15 Status: Completedomeprazole 20 mg oral delayed release capsule 1 cap(s), Oral, BID, # 60 cap(s), 0 Refill(s), Start Date: 04/12/14 15:26:52 BACK FACER , Pharmacy: [place], [place] Start Date: 04/12/14 Stop Date: 05/13/14 Status: Completedomeprazole 20 mg oral delayed release capsule 1 cap(s), Oral, BID, # 60 cap(s), 5 Refill(s), Start Date: 03/14/15 12:04:00 BACK FACER , Pharmacy: [place] Start Date: 03/14/15 Stop Date: 09/21/15 Status: Completedomeprazole 20 mg oral delayed release capsule 1 cap(s), Oral, BID, # 60 cap(s), 5 Refill(s), Start Date: 04/10/16 10:44:06 BACK FACER , Pharmacy: [place] Start Date: 04/10/16 Status: Orderedomeprazole 20 mg oral delayed release capsule 1 cap(s), Oral, Daily, 0 Refill(s) Start Date: 01/11/14 Stop Date: 04/12/14 Status: Discontinuedomeprazole 20 mg oral delayed release capsule 1 cap(s), Oral, BID, # 60 cap(s), 3 Refill(s), Start Date: 05/13/14 15:29:17 BACK FACER , Pharmacy: [place] Start Date: 05/13/14 Stop Date: 09/07/14 Status: CompletedPen Terril Mini 31G 5mm See Instructions, Use daily with Tresiba and Victoza. DX E11.9, # 200 EA, 1 Refill(s), Pharmacy: [place], [place], Supply Special Instructions: Use daily with Tresiba and Victoza. DX E11.9 Start Date: 08/16/15 Status: OrderedPen Terril Mini 31G 5mm See Instructions, Use daily with Tresiba and Victoza, # 200 EA, 1 Refill(s), Supply Special Instructions: Use daily with Tresiba and Victoza Start Date: 08/16/15 Stop Date: 08/16/15 Status: DiscontinuedPneumovax 23 injectable solution See Instructions, IM ONETIME as directed, # 1 EA, 0 Refill(s), Start Date: 03/05 15:22:00 CDT, Pharmacy: [place], [place] Special Instructions: IM ONETIME as directed Start Date: 03/05/14 Stop Date: 08/19/14 Status: DiscontinuedPneumovax 23 injectable solution 0.5 mL, IM, ONETIME, # 1 mL, 0 Refill(s), Start Date: 03/05/14 15:20:00 CDT Start Date: 03/05/14 Stop Date: 03/05/14 Status: DiscontinuedPristiq 100 mg oral tablet, extended release 1 tab(s), Oral, Daily, # 30 tab(s), 5 Refill(s), Start Date: 12/19/15 14:21:40 CDT, Pharmacy: [place] Start Date: 12/19/15 Stop Date: 06/13/16 Status: CompletedPristiq 100 mg oral tablet, extended release 1 tab(s), Oral, Daily, # 30 tab(s), 5 Refill(s), Start Date: 12/09/14 17:53:00 CDT, Pharmacy: [place] Start Date: 12/09/14 Stop Date: 06/09/15 Status: CompletedPristiq 100 mg oral tablet, extended release 1 tab(s), Oral, Daily, # 30 tab(s), 2 Refill(s), Start Date: 05/13/14 15:29:16 BACK FACER, Pharmacy: [place] Start Date: 05/13/14 Stop Date: 08/12/14 Status: CompletedPristiq 100 mg oral tablet, extended release 1 tab(s), Oral, Daily, # 30 tab(s), 5 Refill(s), Start Date: 06/09/15 13:54:00 BACK FACER, Pharmacy: [place] Start Date: 06/09/15 Stop Date: 12/19/15 Status: CompletedPristiq 100 mg oral tablet, extended release 1 tab(s), Oral, Daily, # 30 tab(s), 0 Refill(s) Start Date: 01/11/14 Stop Date: 04/12/14 Status: DiscontinuedPristiq 100 mg oral tablet, extended release 1 tab(s), Oral, Daily, # 30 tab(s), 0 Refill(s), Start Date: 04/12/14 15:26:54 BACK FACER, Pharmacy: [place] Start Date: 04/12/14 Stop Date: 05/13/14 Status: CompletedPristiq 100 mg oral tablet, extended release 1 tab(s), Oral, Daily, # 30 tab(s), 5 Refill(s), Start Date: 06/13/16 11:23:30 BACK FACER, Pharmacy: [place] Start Date: 06/13/16 Status: OrderedPristiq 100 mg oral tablet, extended release 1 tab(s), Oral, Daily, # 30 tab(s), 3 Refill(s), Start Date: 08/12/14 17:14:47 CDT, Pharmacy: [place] Start Date: 08/12/14 Stop Date: 12/09/14 Status: CompletedPristiq 50 mg oral tablet, extended release 2 tab(s), Oral, Daily, 0 Refill(s) Start Date: 12/24/13 Stop Date: 01/11/14 Status: DiscontinuedSenokot S 50 mg-8.6 mg oral tablet 1 tab(s), Oral, BID, X 7 days, # 14 tab(s), 0 Refill(s), Pharmacy: [place] Start Date: 01/15/14 Stop Date: 01/22/14 Status: CompletedSuprep Bowel Prep Kit oral liquid 1 kit(s), Oral, ONETIME, # 1 kit(s), 0 Refill(s), Start Date: 04/12/15 8:52:00 BACK FACER, Pharmacy: [place] Start Date: 04/12/15 Stop Date: 05/26/15 Status: CompletedSuprep Bowel Prep Kit oral liquid 1 bottles, Oral, BID, Mix 1 btl to 16oz water and drink. Next morning; repeat use second btl. Complete at least 1 hr before colonscopy., # 1 kit(s), 0 Refill (s), Start Date: 04/12/15 8:38:00 BACK FACER, Pharmacy: [place], [place] Special Instructions: Mix 1 btl to 16oz water and drink. Next morning; repeat use second btl. Complete at least 1 hr before colonscopy. Start Date: 04/12/15 Stop Date: 04/13/15 Status: CompletedTest Strips Other (See Comment) 3 Month Supply, Subcutaneous, TID, Truetest glucose test strips. DX E11.9, # 300 EA, 5 Refill(s), Pharmacy: [place], [place], Supply Special Instructions: Truetest glucose test strips. DX E11.9 Start Date: 11/11/15 Status: OrderedTest Strips Other (See Comment) 3 Month Supply, Subcutaneous, TID, Truetest glucose test strips. DX 250.00, # 1 QS, 1 Refill(s), Pharmacy: [place], [place], Supply Special Instructions: Truetest glucose test strips. DX 250.00 Start Date: 05/13/14 Stop Date: 12/16/14 Status: CompletedTest Strips Other (See Comment) 3 Month Supply, Subcutaneous, TID, Truetest glucose test strips. DX E11.9, # 300 EA, 1 Refill(s), Pharmacy: [place], [place], Supply Special Instructions: Truetest glucose test [...] 250.00, # 1 QS, 1 Refill(s), Pharmacy: [place], Supply Special Instructions: Truetest glucose test strips. DX 250.00 Start Date: 12/16/14 Stop Date: 02/09/15 Status: CompletedtraMADol 50 mg oral tablet 1 tab(s), Oral, q6hr interval, PRN pain moderate 4-7, # 60 tab(s), 1 Refill(s), Start Date: 05/21/14 13:07:39 BACK FACER, Pharmacy: [place] Start Date: 05/21/14 Stop Date: 05/24/15 [...] Start Date: 10/13/15 9:45: 32 CDT, Pharmacy: [place] Start Date: 10/13/15 Stop Date: 01/23/16 Status: CompletedTresiba FlexTouch 200 units/mL subcutaneous solution See Instructions, 50 units Subcutaneous Daily, # 1 EA, 2 Refill(s), Start Date: 07/19/15 14:26:00 CDT, Pharmacy: [place], [place] Special Instructions: 50 units Subcutaneous Daily Start Date: 07/19/15 Stop Date: 10/13/15 Status: CompletedTresiba FlexTouch 200 units/mL subcutaneous solution 54 units, Subcutaneous, Daily, # 9 mL, 5 Refill(s), Start Date: 01/23/16 16:48: 41 CDT, Pharmacy: [place] Start Date: 01/23/16 Status: OrderedTylenol 8 HR Arthritis Pain 1,300 mg, Oral, BID, 0 Refill(s), Start Date: 05/16/16 7:29:00 BACK FACER Start Date: 05/16/16 Status: OrderedTylenol Arthritis Caplet mg, Oral, q8hr interval, 0 Refill(s) Start Date: 12/24/13 Stop Date: 05/16/16 Status: CompletedUnasyn 2 g-1 g injection 3 gm, IV, q6hr interval, # 148 bags, 0 Refill(s) Start Date: 01/15/14 Stop Date: 08/19/14 Status: Discontinuedursodiol 300 mg oral capsule 1 cap(s), Oral, TID, # 90 cap(s), 5 Refill(s), Start Date: 12/19/15 14:20:09 CDT , Pharmacy: [facility], [place] Start Date: 12/19/15 Stop Date: 06/16/16 Status: Orderedursodiol 300 mg oral capsule 1 cap(s), Oral, TID, 0 Refill(s) Start Date: 12/24/13 Stop Date: 04/12/14 Status: Discontinuedursodiol 300 mg oral capsule 1 cap(s), Oral, TID, # 90 cap(s), 2 Refill(s), Start Date: 05/13/14 15:29:20 BACK FACER , Pharmacy: [place] Start Date: 05/13/14 Stop Date: 08/12/14 Status: Completedursodiol 300 mg oral capsule 1 cap(s), Oral, TID, X 30 days, # 90 cap(s), 5 Refill(s), Start Date: 06/09/15 13:54:00 BACK FACER, Pharmacy: [facility], [place] Start Date: 06/09/15 Stop Date: 12/19/15 Status: Completedursodiol 300 mg oral capsule 1 cap(s), Oral, TID, # 90 cap(s), 5 Refill(s), Start Date: 12/09/14 17:53:00 CDT , Pharmacy: [facility], [place] Start Date: 12/09/14 Stop Date: 06/09/15 Status: Completedursodiol 300 mg oral capsule 1 cap(s), Oral, TID, # 90 cap(s), 3 Refill(s), Start Date: 08/12/14 17:14:47 CDT , Pharmacy: [facility], [place] Start Date: 08/12/14 Stop Date: 12/09/14 Status: Completedursodiol 300 mg oral capsule 1 cap(s), Oral, TID, # 90 cap(s), 0 Refill(s), Start Date: 04/12/14 15:26:52 BACK FACER , Pharmacy: [facility], [place] Start Date: 04/12/14 Stop Date: 05/13/14 Status: CompletedVicodin 5 mg-325 mg oral tablet See Instructions, 1-2 tabOral 4- q6hr interval, 0 Refill(s) Special Instructions: 1-2 tabOral 4- q6hr interval Start Date: 01/28/14 Stop Date: 03/05/14 Status: DiscontinuedVictoza 18 mg/3 mL subcutaneous solution 1.8 mg, Subcutaneous, Daily, # 1 QS, 5 Refill(s), Start Date: 11/11/15 8:18:49 CDT, Pharmacy: [place] Start Date: 11/11/15 Stop Date: 05/09/16 Status: OrderedVictoza 18 mg/3 mL subcutaneous solution 0.6 mg, Subcutaneous, Daily, 0.6 mg daily for 7 days then increase to 1.2 mg daily., # 6 mL, 2 Refill(s), Start Date: 07/27/14 12:14:00 CDT, Pharmacy: [place], [place] Special Instructions: 0.6 mg daily for 7 days then increase to 1.2 mg daily. Start Date: 07/27/14 Stop Date: 11/16/14 Status: CompletedVictoza 18 mg/3 mL subcutaneous solution 1.2 mg, Subcutaneous, Daily, # 1 QS, 5 Refill(s), Start Date: 11/16/14 15:52:54 CDT, Pharmacy: [place] Start Date: 11/16/14 Stop Date: 03/30/15 Status: DiscontinuedVictoza 18 mg/3 mL subcutaneous solution 1.8 mg, Subcutaneous, Daily, X 30 days, # 1 QS, 5 Refill(s), Start Date: 11:25:28 BACK FACER, Pharmacy: [place] Start Date: 03/30/15 Stop Date: 11/11/15 Status: CompletedVitamin D3 1000 intl units oral tablet 1 tab(s), Oral, Daily, # 30 tab(s), 0 Refill(s), Start Date: 05/24/15 11:56:00 BACK FACER Start Date: 05/24/15 Stop Date: 12/28/15 Status: DiscontinuedVitamin D3 2000 intl units oral tablet 2 tab(s), Oral, Daily, # 60 tab(s), 0 Refill(s), Start Date: 12/28/15 15:55:00 CDT Start Date: 12/28/15 Status: OrderedZostavax subcutaneous injection See Instructions, Subcutaneous ONETIME as directed, # 1 EA, 0 Refill(s), Start Date: 03/05/14 15:20:00 CDT, [place] Special Instructions: Subcutaneous ONETIME as directed [...] of vocal cord7 2010 Amputation of toe [id number]-populated from documented surgical [id number] from documented surgical [id number] from documented surgical [id number] from documented surgical [id number] from documented surgical [id number] Social History No data available for this section Assessment and Plan No data available for this section
--- OUTSIDE RECORDS SUMMARY | 2016-08-31 11:09 | XMS REPORT | Summary of Care ---
:1955 Author Organization [facility] Address [address] [place] [address]- Care Team Providers Name Role Phone Wilson, Mathieu James Primary Care Physician Encounter Date(s): 06/14/16 - 06/14/16 [facility] [address] [place] [id number]- [facility] Discharge Disposition: 01 Discharged to Home or Self Care Attending Physician: Clemente Herrera DO Admitting Physician: Clemente Herrera DO Vital Signs Most recent to oldest [Reference Range]: 1 2 Temperature Temporal Artery [36-38 DegC] 37.3 DegC (06/14/16 7:17 AM) Heart Rate Monitored [60-100 bpm] 83 bpm (06/14/16 7:17 AM) Respiratory Rate [12-20 br/min] 20 br/min (06/14/16 7:17 AM) SpO2 98 % (06/14/16 7:17 AM) SpO2 Location Right hand (06/14/16 7:17 AM) Blood Pressure [90-130/60-90 mmHg] 188/88mmHg *>HHI* (06/14/16 7:17 AM) Most recent to oldest [Reference Range]: 1 2 Height/Length Measured 185 cm (06/14/16 7:17 AM) Height/Length Estimated 185.4 cm 185.4 cm (06/12/16 2:46 PM) (05/16/16 7:26 AM) Weight Estimated 159 kg 150 kg (06/12/16 2:46 PM) (05/16/16 7:26 AM) Weight Dosing 161.3 kg (06/14/16 7:17 AM) Weight Measured 161.3 kg (06/14/16 7:17 AM) Body Mass Index Measured 47.13 kg/m2 (06/14/16 7:17 AM) Problem List Condition Effective Dates Status [...] Reactions, Alerts Substance Reaction Severity Status penicillins [id number] 19:24:09<$> Active Tape rash Severe Active Medications albuterol CFC free 90 mcg/inh inhalation aerosol 2 puff(s), Inhale, q4hr, PRN shortness of breath or wheezing, # 1 EA, 0 Refill(s ), Pharmacy: [place], [place] Start Date: 01/15/14 Stop Date: 02/14/14 Status: OrderedamLODIPine 10 mg oral tablet 1 tab(s), Oral, Daily, dose increase, # 30 tab(s), 5 Refill(s), Start Date: 02/18 13:20:00 CH[employer]DER, Pharmacy: [place], [place] Special Instructions: dose increase Start Date: 03/15/16 Status: OrderedamLODIPine 5 mg oral tablet 1 tab(s), Oral, Daily, # 90 tab(s), 1 Refill(s), Start Date: 10/13/15 9:44:20 CDT, Pharmacy: [place] Start Date: 10/13/15 Stop Date: 03/15/16 Status: DiscontinuedamLODIPine 5 mg oral tablet 1 tab(s), Oral, Daily, X 30 days, # 30 tab(s), 2 Refill(s), Start Date: 13:13:00 CH[employer], Pharmacy: [place] Start Date: 03/30/15 Stop Date: 07/12/15 Status: CompletedamLODIPine 5 mg oral tablet 1 tab(s), Oral, Daily, X 30 days, # 30 tab(s), 1 Refill(s), Start Date: 12:04:00 [employer]DER, Pharmacy: [place] Start Date: 07/12/15 Stop Date: 10/13/15 Status: CompletedByetta Prefilled Pen 5 mcg/0.02 mL subcutaneous solution 0.02, Subcutaneous, BID, 0 Refill(s) Start Date: 12/24/13 Stop Date: 04/12/14 Status: DiscontinuedByetta Prefilled Pen 5 mcg/0.02 mL subcutaneous solution 5 mcg, Subcutaneous, BID, 30 day supply, # 1 QS, 2 Refill(s), Start Date: 11: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, 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: [place] Special Instructions: insurance refused coverage--switched to Victoza Start Date: 06/18/14 Stop Date: 07/27/14 Status: DiscontinuedByetta Prefilled Pen 5 mcg/0.02 mL subcutaneous solution 0.02, Subcutaneous, BID, 30 day supply, # 1 QS, 0 Refill(s), Start Date: 15:26:54 CH[employer] BU[employer]DER, Pharmacy: [place] Special Instructions: 30 day supply Start Date: 04/12/14 Stop Date: 06/18/14 Status: CompletedCentrum Silver oral tablet 1 tab(s), Oral, Daily, 0 Refill(s) Start Date: 01/10/14 Stop Date: 01/11/14 Status: Discontinuedcephalexin 250 mg oral capsule 1 cap(s), Oral, QID, # 40 cap(s), 0 Refill(s), Start Date: 08/15/15 14:16:00 CDT , Pharmacy: [place] Start Date: 08/15/15 Stop Date: 01/06/16 Status: Completedcholecalciferol 50,000 intl units oral capsule 1 cap(s), Oral, q7day, # 8 cap(s), 0 Refill(s), Start Date: 08/23/14 8:17:00 CDT , Pharmacy: [place] Start Date: 08/23/14 Stop Date: 05/24/15 Status: CompletedCialis 20 mg oral tablet 0.5 tab(s), Oral, Daily, # 8 tab(s), 0 Refill(s), Start Date: 02/19/14 10:47:00 CDT, samples given to patient (Rx), [id number], 08/04/14 Start Date: 02/19/14 Stop Date: 08/19/14 Status: DiscontinuedCialis 20 mg oral tablet 0.5 tab(s), Oral, Daily, # 8 tab(s), 0 Refill(s), Start Date: 08/19/14 13:49:20 CDT, Pharmacy: [place], [place], [id number], 08/04/14 Start Date: 08/19/14 Stop Date: 05/24/15 Status: CompletedCialis 5 mg oral tablet 1 tab(s), Oral, Daily, PRN for erectile dysfunction, # 30 tab(s), 0 Refill(s), samples given to patient (Rx), [id number], 04/05/16 Start Date: 12/24/13 Stop Date: 03/05/14 Status: DiscontinuedCipro 500 mg oral tablet 1 tab(s), Oral, q12hr, # 20 tab(s), 0 Refill(s), Start Date: 09/26/15 13:39:00 CDT, Pharmacy: [place] Start Date: 09/26/15 Stop Date: 10/12/15 Status: CompletedCipro 500 mg oral tablet 1 tab(s), Oral, q12hr, # 28 tab(s), 0 Refill(s), Start Date: 10/12/15 10:51:00 CDT, Pharmacy: [place] Start Date: 10/12/15 Stop Date: 01/06/16 [...] Start Date: 09/26/15 13:39:00 CDT , Pharmacy: [place] Start Date: 09/26/15 Stop Date: 10/12/15 Status: Completedcranberry oral tablet 1 tab, Oral, Daily, 0 Refill(s), Start Date: 05/16/16 7:33:00 [employer] Start Date: 05/16/16 Status: Orderedcyclobenzaprine 5 mg oral tablet 1 tab(s), Oral, TID, # 90 tab(s), 3 Refill(s), Start Date: 07/13/14 10:47:23 CDT , Pharmacy: [place] Start Date: 07/13/14 Stop Date: 11/04/14 Status: Completedcyclobenzaprine 5 mg oral tablet 1 tab(s), Oral, TID, X 30 days, # 90 tab(s), 1 Refill(s), Start Date: 05/21/14 13:15:00 CH[employer] BU[employer]DER, Pharmacy: [facility] Start Date: 05/21/14 Stop Date: 07/13/14 Status: Completedcyclobenzaprine 5 mg oral tablet 1 tab(s), Oral, TID, # 90 tab(s), 5 Refill(s), Start Date: 03/14/15 12:04:00 CH[employer] BUILDER , Pharmacy: [place] Start Date: 03/14/15 Stop Date: 11/16/15 Status: Completedcyclobenzaprine 5 mg oral tablet 1 tab(s), Oral, TID, # 90 tab(s), 5 Refill(s), Start Date: 11/16/15 16:28:38 CDT , Pharmacy: [place] Start Date: 11/16/15 Status: Orderedcyclobenzaprine 5 mg oral tablet 1 tab(s), Oral, TID, # 90 tab(s), 3 Refill(s), Start Date: 11/04/14 16:52:55 CDT , Pharmacy: [facility] Start Date: 11/04/14 Stop Date: 03/14/15 Status: Completedesomeprazole 20 mg oral delayed release capsule cap(s), Oral, Daily, 0 Refill(s) Start Date: 12/24/13 Stop Date: 01/11/14 Status: Discontinuedfenofibrate 145 mg oral tablet 1 tab(s), Oral, Daily, # 30 tab(s), 5 Refill(s), Start Date: 12/19/15 14:20:40 CDT, Pharmacy: [facility] Start Date: 12/19/15 Stop Date: 06/13/16 Status: Completedfenofibrate 145 mg oral tablet 1 tab(s), Oral, Daily, # 30 tab(s), 2 Refill(s), Start Date: 05/13/14 15:29:18 CH[employer] BUILDER, Pharmacy: [facility] Start Date: 05/13/14 Stop Date: 08/12/14 Status: Completedfenofibrate 145 mg oral tablet 1 tab(s), Oral, Daily, # 30 tab(s), 0 Refill(s), Start Date: 04/12/14 15:26:55 CH[employer] BU[employer]DER, Pharmacy: [facility] Start Date: 04/12/14 Stop Date: 05/13/14 Status: Completedfenofibrate 145 mg oral tablet 1 tab(s), Oral, Daily, 0 Refill(s) Start Date: 01/11/14 Stop Date: 04/12/14 Status: Discontinuedfenofibrate 145 mg oral tablet 1 tab(s), Oral, Daily, # 30 tab(s), 5 Refill(s), Start Date: 12/09/14 17:53:00 CDT, Pharmacy: [facility] Start Date: 12/09/14 Stop Date: 06/09/15 Status: Completedfenofibrate 145 mg oral tablet 1 tab(s), Oral, Daily, # 30 tab(s), 5 Refill(s), Start Date: 06/09/15 13:54:00 CH[employer] BUILDER, Pharmacy: [facility] Start Date: 06/09/15 Stop Date: 12/19/15 Status: Completedfenofibrate 145 mg oral tablet 1 tab(s), Oral, Daily, # 30 tab(s), 5 Refill(s), Start Date: 06/13/16 11:22:46 CH[employer] BUILDER, Pharmacy: [place] Start Date: 06/13/16 Status: Orderedfenofibrate 145 mg oral tablet 1 tab(s), Oral, Daily, # 30 tab(s), 3 Refill(s), Start Date: 08/12/14 17:14:48 CDT, Pharmacy: [place] Start Date: 08/12/14 Stop Date: 12/09/14 Status: Completedfenofibrate 54 mg oral tablet 1 tab(s), Oral, HS, 0 Refill(s) Start Date: 01/10/14 Stop Date: 01/11/14 Status: Discontinuedfluticasone 50 mcg/inh nasal spray 1 spray(s), Nasal, BID, PRN allergy symptoms, X 30 days, # 1 EA, 5 Refill(s), Start Date: 12/19/15 14:22:29 CDT, Pharmacy: [place] Start Date: 12/19/15 Stop Date: 06/13/16 Status: Completedfluticasone 50 mcg/inh nasal spray 1-2 spray(s), Nasal, Daily, 0 Refill(s) Start Date: 12/24/13 Stop Date: 01/11/14 Status: Discontinuedfluticasone 50 mcg/inh nasal spray 1 spray(s), Nasal, BID, PRN allergy symptoms, X 30 days, # 1 EA, 5 Refill(s), Start Date: 06/02/15 13:11:00 CH[employer]DER, Pharmacy: [place] Start Date: 06/02/15 Stop Date: 12/19/15 Status: Completedfluticasone 50 mcg/inh nasal spray 1 puff(s), Nasal, Daily, # 1 EA, 0 Refill(s), Pharmacy: [place] Start Date: 01/15/14 Stop Date: 08/19/14 Status: Discontinuedfluticasone 50 mcg/inh nasal spray 1 spray(s), Nasal, BID, PRN allergy symptoms, # 1 EA, 5 Refill(s), Start Date: 06/13/16 11:25:06 CH[employer] BUILDER, Pharmacy: [place] Start Date: 06/13/16 Stop Date: 12/10/16 Status: Orderedgabapentin 800 mg oral tablet See Instructions, Take 1 tab in the morning and 1 tab in the afternoon and 2 tabs HS., # 120 tab(s), 5 Refill(s), Start Date: 12/19/15 14:18:45 CDT, Pharmacy : [place], [place] Special Instructions: Take 1 tab in the morning and 1 tab in the afternoon and 2 tabs HS. Start Date: 12/19/15 Stop Date: 06/13/16 Status: Completedgabapentin 800 mg oral tablet See Instructions, 800 mg in the AM and afternoon.1600 mg at HS., # 1 QS, 4 Refill(s), Start Date: 05/13/14 15:29:17 CH[employer] BUILDER, Pharmacy: [place] Special Instructions: 800 mg in the [...] Refill(s), Start Date: 08/16/15 15:37:00 CDT, Pharmacy: [place] Special Instructions: 800 mg in the AM and afternoon.1600 mg at HS. Start Date: 08/16/15 Stop Date: 10/13/15 Status: Completedgabapentin 800 mg oral tablet See Instructions, 800 mg in the AM and afternoon.1600 mg at HS., # 120 tab(s), 5 Refill(s), Start Date: 02/09/15 12:11:00 CDT, Pharmacy: [place] Special Instructions: 800 mg in the AM and afternoon.1600 mg at HS. Start Date: 02/09/15 Stop Date: 08/16/15 Status: Completedgabapentin 800 mg oral tablet See Instructions, Take 1 tab in the morning and 1 tab in the afternoon and 2 tabs HS., # 120 tab(s), 5 Refill(s), Start Date: 06/13/16 11:25:31 CH[employer] BU[employer]DER, Pharmacy : [place] Special Instructions: Take 1 tab in the morning and 1 tab in the afternoon and 2 tabs HS. Start Date: 06/13/16 Status: Orderedgabapentin 800 mg oral tablet 1 tab(s), Oral, TID, # 90 tab(s), 0 Refill(s), Start Date: 04/12/14 15:26:56 CH[employer] BUILDER , Pharmacy: [place] Start Date: 04/12/14 Stop Date: 05/13/14 Status: Completedgabapentin 800 mg oral tablet See Instructions, 800 mg in the AM and afternoon.1600 mg at HS., # 120 tab(s), 1 Refill(s), Start Date: 10/13/15 9:47:12 CDT, Pharmacy: [place] Special Instructions: 800 mg in the AM and afternoon.1600 mg at HS. Start Date: 10/13/15 Stop Date: 12/19/15 Status: Completedglimepiride 4 mg oral tablet 1 tab(s), Oral, BID, # 60 tab(s), 2 Refill(s), Start Date: 05/13/14 15:29:19 CH[employer] BUILDER , Pharmacy: [place] Start Date: 05/13/14 Stop Date: 08/12/14 Status: Completedglimepiride 4 mg oral tablet 1 tab(s), Oral, BID, # 180 tab(s), 1 Refill(s), Start Date: 10/13/15 9:43:35 CDT , Pharmacy: [place] Start Date: 10/13/15 Stop Date: 04/10/16 Status: Completedglimepiride 4 mg oral tablet 1 tab(s), Oral, BID, 0 Refill(s) Start Date: 12/24/13 Stop Date: 04/12/14 Status: Discontinuedglimepiride 4 mg oral tablet 1 tab(s), Oral, BID, # 60 tab(s), 0 Refill(s), Start Date: 04/12/14 15:26:53 CH[employer] BUILDER , Pharmacy: [place] Start Date: 04/12/14 Stop Date: 05/13/14 Status: Completedglimepiride 4 mg oral tablet 1 tab(s), Oral, BID, # 180 tab(s), 3 Refill(s), Start Date: 09/16/14 18:17:38 CDT, Pharmacy: [place] Start Date: 09/16/14 Stop Date: 10/13/15 Status: Completedglimepiride 4 mg oral tablet 1 tab(s), Oral, BID, # 180 tab(s), 1 Refill(s), Start Date: 04/10/16 10:45:43 CH[employer] BU[employer]DER, Pharmacy: [place] Start Date: 04/10/16 Status: Orderedglimepiride 4 mg oral tablet 1 tab(s), Oral, BID, # 60 tab(s), 3 Refill(s), Start Date: 08/12/14 17:14:45 CDT , Pharmacy: [place] Start Date: 08/12/14 Stop Date: 09/16/14 Status: CompletedGoLYTELY oral powder for reconstitution See Instructions, as directed on package labeling, # 4,000 mL, 0 Refill(s), Start Date: 03/14/16 16:49:00 CH[employer] BU[employer]DER, Pharmacy: [place] Special Instructions: as directed on package labeling Start Date: 03/14/16 Stop Date: 06/14/16 Status: CompletedGoLYTELY oral powder for reconstitution See Instructions, 240 mL Oral Daily, # 4,000 mL, 0 Refill(s), Start Date: 7:40:00 CH[employer] BUILDER, Pharmacy: [place] Special Instructions: 240 mL Oral Daily Start Date: 06/14/16 Status: OrderedGoLYTELY oral powder for reconstitution See Instructions, 240 mL Oral q10min, # 4,000 mL, 0 Refill(s), Start Date: 05/17 9:17:00 CH[employer] BUILDER, Pharmacy: [place] Special Instructions: 240 mL Oral q10min Start Date: 05/17/16 Stop Date: 06/14/16 Status: Completedheparin flush 10 units/mL intravenous solution 5 mL, IV Push, As Indicated, PRN PICC Maintenance, 0 Refill(s) Start Date: 01/15/14 Stop Date: 03/05/14 Status: DiscontinuedHumaLOG 100 units/mL subcutaneous solution See Instructions, Give 3 units plus sliding scale with evening meal., # 10 mL, 0 Refill(s), Start Date: 04/26/15 16:13:00 CH[employer]DER, Pharmacy: [place] Special Instructions: Give 3 units plus sliding scale with evening meal. Start Date: 04/26/15 Stop Date: 05/10/15 Status: CompletedHumaLOG 100 units/mL subcutaneous solution See Instructions, Give 3 units plus sliding scale with evening meal., # 10 mL, 5 Refill(s), Start Date: 05/10/15 7:52:00 CH[employer] BU[employer]DER, Pharmacy: [place] Special Instructions: Give 3 units plus sliding scale with evening meal. Start Date: 05/10/15 Status: Orderedhydrochlorothiazide 12.5 mg oral tablet 1 tab(s), Oral, Daily, X 30 days, # 30 tab(s), 2 Refill(s), Start Date: 14:25:00 CDT, Pharmacy: [place] Start Date: 07/19/15 Stop Date: 08/15/15 Status: Completedhydrochlorothiazide 25 mg oral tablet 1 tab(s), Oral, Daily, # 30 tab(s), 2 Refill(s), Start Date: 08/15/15 13:53:00 CDT, Pharmacy: [place] Start Date: 08/15/15 Stop Date: 11/13/15 Status: Orderedinsulin detemir 100 units/mL subcutaneous solution See Instructions, 20 units in the AM and 30 units PM daily. 30 day supply, Levimer FlexTouch, # 15 mL, 5 Refill(s), Start Date: 01/23/16 17:08:05 CDT, Pharmacy: [place] Special Instructions: 20 units in the AM and 30 units PM daily. 30 day supply, Levimer FlexTouch Start Date: 01/23/16 Stop Date: 05/16/16 Status: Completedinsulin detemir 100 units/mL subcutaneous solution See Instructions, 20 units in the AM and PM daily. 30 day supply, Levimer FlexTouch, # 1 QS, 1 Refill(s), Start Date: 04/12/14 15:26:54 CH[employer] BUILDER, Pharmacy: [place] Special Instructions: 20 units in the [...] Refill(s), Start Date: 10/11/14 9:46:52 CDT, Pharmacy: [place] Special Instructions: 20 units in the AM and PM daily. 30 day supply, Levimer FlexTouch Start Date: 10/11/14 Stop Date: 05/11/15 Status: Completedinsulin detemir 100 units/mL subcutaneous solution See Instructions, 20 units in the AM and PM daily. 30 day supply, Levimer FlexTouch, # 15 mL, 3 Refill(s), Start Date: 08/12/14 17:14:46 CDT, Pharmacy: [place] Special Instructions: 20 units in the AM and PM daily. 30 day supply, Levimer FlexTouch Start Date: 08/12/14 Stop Date: 10/11/14 Status: Completedinsulin detemir 100 units/mL subcutaneous solution See Instructions, 20 units in the AM and 30 units PM daily. 30 day supply, Levimer FlexTouch, # 15 mL, 11 Refill(s), Start Date: 05/11/15 17:34:00 CH[employer] BUILDER, Pharmacy: [place] Special Instructions: 20 units in the AM and 30 units PM daily. 30 day supply, Levimer FlexTouch Start Date: 05/11/15 Stop Date: 01/23/16 Status: CompletedInsulin Pen Thousandsticks 5/16" 31G 100 Thousandsticks, Subcutaneous, Daily, use once daily. DX 250.00. Easy touch pen needles., # 1 QS, 1 Refill(s), Pharmacy: [place], [place], Supply Special Instructions: use once daily. DX 250.00. Easy touch pen needles. Start Date: 09/07/14 Stop Date: 08/16/15 Status: DiscontinuedInsulin Pen Thousandsticks 516" 31G 100 Thousandsticks, Subcutaneous, Daily, use daily. DX 250.00, # 1 QS, 1 Refill(s), Supply Special Instructions: use daily. DX 250.00 Start Date: 09/07/14 Stop Date: 09/07/14 Status: DiscontinuedInsulin Syringes 3/10" 31G 6mm See Instructions, Subcutaneous TID. DX E11.9. Patient states that he needs 50 unit syringes., # 300 EA, 3 Refill(s), Pharmacy: [place], [place] , Supply Special Instructions: Subcutaneous TID. [...] tab(s), 5 Refill(s), Start Date: 03/15/16 13:21:00 CH[employer]DER, Pharmacy[place] Start Date: 03/15/16 Status: Orderedlisinopril 40 mg oral tablet 1 tab(s), Oral, BID, # 60 tab(s), 2 Refill(s), Start Date: 05/13/14 15:29:19 CH[employer] BUILDER , [place]acy[place] [facility] Start Date: 05/13/14 Stop Date: 08/12/14 Status: Completedlisinopril 40 mg oral tablet 1 tab(s), Oral, BID, 0 Refill(s) Start Date: 12/24/13 Stop Date: 01/15/14 Status: Discontinuedlisinopril 40 mg oral tablet 1 tab(s), Oral, BID, # 180 tab(s), 1 Refill(s), Start Date: 10/13/15 9:42:12 CDT , [place]acy[place] [facility] Start Date: 10/13/15 Stop Date: 04/10/16 Status: Completedlisinopril 40 mg oral tablet 1 tab(s), Oral, Daily, # 30 tab(s), 0 Refill(s), Start Date: 01/15/14 9:26:00 CDT, [place]acy[place] [facility] Start Date: 01/15/14 Stop Date: 04/12/14 Status: Completedlisinopril 40 mg oral tablet 1 tab(s), Oral, BID, # 60 tab(s), 0 Refill(s), Start Date: 04/12/14 15:26:53 CH[employer] BUILDER , [place]acy[place] [facility] Start Date: 04/12/14 Stop Date: 05/13/14 Status: Completedlisinopril 40 mg oral tablet 1 tab(s), Oral, BID, # 180 tab(s), 3 Refill(s), Start Date: 09/16/14 18:17:38 CDT, [place]acy[place] [facility] Start Date: 09/16/14 Stop Date: 10/13/15 Status: Completedlisinopril 40 mg oral tablet 1 tab(s), Oral, BID, # 180 tab(s), 1 Refill(s), Start Date: 04/10/16 10:44:40 CH[employer]DER, Pharmacy: [place] Start Date: 04/10/16 Status: Orderedlisinopril 40 mg oral tablet 1 tab(s), Oral, BID, # 60 tab(s), 3 Refill(s), Start Date: 08/12/14 17:14:45 CDT , Pharmacy[place] [facility] Start Date: 08/12/14 Stop Date: 09/16/14 Status: CompletedMaxair Autohaler 0.2 mg/inh inhalation aerosol 2 puff(s), Inhale, q4hr interval, 0 Refill(s) Start Date: 12/24/13 Stop Date: 01/11/14 Status: DiscontinuedmetFORMIN 500 mg oral tablet 2 tab(s), Oral, BID, # 360 tab(s), 1 Refill(s), Start Date: 10/13/15 9:42:53 CDT , Pharmacy: [place] Start Date: 10/13/15 Stop Date: 04/10/16 Status: CompletedmetFORMIN 500 mg oral tablet 2 tab(s), Oral, BID, 0 Refill(s), Start Date: 12/24/13 9:43:00 CDT Start Date: 12/24/13 Stop Date: 04/12/14 Status: DiscontinuedmetFORMIN 500 mg oral tablet 2 tab(s), Oral, BID, # 360 tab(s), 3 Refill(s), Start Date: 09/16/14 18:17:39 CDT, [place]acy[place] [facility] Start Date: 09/16/14 Stop Date: 10/13/15 Status: CompletedmetFORMIN 500 mg oral tablet 2 tab(s), Oral, BID, # 360 tab(s), 1 Refill(s), Start Date: 04/10/16 10:45:17 CH[employer]DER, Pharmacy: [place] Start Date: 04/10/16 Status: OrderedmetFORMIN 500 mg oral tablet 2 tab(s), Oral, BID, # 120 tab(s), 2 Refill(s), Start Date: 05/13/14 15:29:16 CH[employer] BU[employer]DER, [place]acy[place] [facility] Start Date: 05/13/14 Stop Date: 08/12/14 Status: CompletedmetFORMIN 500 mg oral tablet 2 tab(s), Oral, BID, # 120 tab(s), 3 Refill(s), Start Date: 08/12/14 17:14:47 CDT, Pharmacy: [place] Start Date: 08/12/14 Stop Date: 09/16/14 Status: CompletedmetFORMIN 500 mg oral tablet 2 tab(s), Oral, BID, # 120 tab(s), 0 Refill(s), Start Date: 04/12/14 15:26:54 CH[employer]DER, Pharmacy[place] [facility] Start Date: 04/12/14 Stop Date: 05/13/14 Status: Completedmethocarbamol 750 mg oral tablet 1 tab(s), Oral, QID, # 120 tab(s), 0 Refill(s), Start Date: 04/12/14 15:26:53 CH[employer]DER, [place]acy[place] [facility] Start Date: 04/12/14 Stop Date: 05/13/14 Status: Completedmethocarbamol 750 mg oral tablet 1 tab(s), Oral, QID, 0 Refill(s) Start Date: 12/24/13 Stop Date: 04/12/14 Status: Discontinuedmethocarbamol 750 mg oral tablet 1 tab(s), Oral, QID, # 120 tab(s), 2 Refill(s), Start Date: 05/13/14 15:29:20 CH[employer]DER, Pharmacy[place] [facility] Start Date: 05/13/14 Stop Date: 05/21/14 Status: DiscontinuedMetoprolol Tartrate 25 mg oral tablet 1 tab(s), Oral, BID, # 60 tab(s), 4 Refill(s), Start Date: 05/13/14 15:29:18 CH[employer] BU[employer]DER , [place]acy[place] [facility] Start Date: 05/13/14 Stop Date: 11/04/14 Status: CompletedMetoprolol Tartrate 25 mg oral tablet 1 tab(s), Oral, BID, 0 Refill(s) Start Date: 12/24/13 Stop Date: 04/12/14 Status: DiscontinuedMetoprolol Tartrate 25 mg oral tablet 1 tab(s), Oral, BID, # 60 tab(s), 5 Refill(s), Start Date: 01/11/15 17:54:00 CDT , Pharmacy[place] [facility] Start Date: 01/11/15 Stop Date: 08/16/15 Status: CompletedMetoprolol Tartrate 25 mg oral tablet 1 tab(s), Oral, BID, # 60 tab(s), 0 Refill(s), Start Date: 04/12/14 15:26:55 CH[employer] BU[employer]DER , Pharmacy: [place] Start Date: 04/12/14 Stop Date: 05/13/14 Status: CompletedMetoprolol Tartrate 25 mg oral tablet 1 tab(s), Oral, BID, Appt due in November, # 60 tab(s), 1 Refill(s), Start Date: 06/20 16:52:55 CDT, Pharmacy: [place] Special Instructions: Appt due in November Start Date: 11/04/14 Stop Date: 01/11/15 Status: CompletedMetoprolol Tartrate 25 mg oral tablet 1 tab(s), Oral, BID, # 60 tab(s), 1 Refill(s), Start Date: 08/16/15 15:37:00 CDT , Pharmacy: [place] Start Date: 08/16/15 Stop Date: 10/13/15 Status: CompletedMetoprolol Tartrate 25 mg oral tablet 1 tab(s), Oral, BID, # 180 tab(s), 1 Refill(s), Start Date: 10/13/15 9:46:39 CDT , Pharmacy: [place] Start Date: 10/13/15 Stop Date: 12/27/15 Status: DiscontinuedMetoprolol Tartrate 50 mg oral tablet 1 tab(s), Oral, BID, DOSE INCREASE, # 180 tab(s), 3 Refill(s), Start Date: 12/26 11:07:00 CDT, Pharmacy: [place] Special Instructions: DOSE INCREASE Start Date: 12/27/15 Status: OrderedMisc Prescription Misc Prescription, See Instructions, Easy Touch pen needles 09/18, use once daily. DX E11.9, # 100 EA, 1 Refill(s), Pharmacy: [place] , Compound Special Instructions: Easy Touch pen needles 09/18, use once daily. DX E11.9 Start Date: 02/09/15 Status: OrderedMisc Prescription See Instructions, Easy Touch pen needles 16, use once daily. DX E11.9, # 100 EA, 1 Refill(s), Supply Special Instructions: Easy Touch pen needles 09/18, use once daily. DX E11.9 Start Date: 02/09/15 Stop Date: 02/09/15 Status: Discontinuednabumetone See Instructions, One tablet twice daily, 0 Refill(s), Start Date: 04/09/14 13: 44:00 [employer] Special Instructions: One tablet twice daily Start Date: 04/09/14 Stop Date: 04/21/14 Status: Discontinuednabumetone 750 mg oral tablet 2 tab(s), Oral, BID, # 120 tab(s), 5 Refill(s), Start Date: 08/19/14 13:47:59 CDT, Pharmacy: [place] Start Date: 08/19/14 Stop Date: 12/09/14 Status: Completednabumetone 750 mg oral tablet 2 tab(s), Oral, BID, # 60 tab(s), 2 Refill(s), Start Date: 05/21/14 13:07:38 CH[employer]DER , Pharmacy[place] Start Date: 05/21/14 Stop Date: 08/12/14 Status: Completednabumetone 750 mg oral tablet 2 tab(s), Oral, BID, with food, # 120 tab(s), 5 Refill(s), Start Date: 02/08/16 14:31:49 CDT, Pharmacy: [place] Special Instructions: with food Start Date: 02/08/16 Status: Orderednabumetone 750 mg oral tablet 2 tab(s), Oral, BID, with food, # 120 tab(s), 5 Refill(s), Start Date: 06/09/15 13:54:00 CH[employer], Pharmacy: [place], [place] Special Instructions: with food Start Date: 06/09/15 Stop Date: 02/08/16 Status: Completednabumetone 750 mg oral tablet 2 tab(s), Oral, BID, # 120 tab(s), 3 Refill(s), Start Date: 08/12/14 17:14:46 CDT, Pharmacy: [place], [place] Start Date: 08/12/14 Stop Date: 08/19/14 Status: Discontinuednabumetone 750 mg oral tablet 2 tab(s), Oral, BID, # 120 tab(s), 5 Refill(s), Start Date: 12/09/14 17:53:00 CDT, Pharmacy: [place], [place] Start Date: 12/09/14 Stop Date: 06/09/15 Status: Completednabumetone 750 mg oral tablet 2 tab(s), Oral, BID, # 60 tab(s), 2 Refill(s), Start Date: 04/21/14 10:40:00 [employer] , Pharmacy: [place], [place] Start Date: 04/21/14 Stop Date: 05/21/14 [...] Start Date: 12/09/14 17:53:00 CDT , Pharmacy: [place], [place] Start Date: 12/09/14 Stop Date: 06/09/15 Status: Completednortriptyline 50 mg oral capsule 3 cap(s), Oral, HS, # 90 cap(s), 5 Refill(s), Start Date: 12/19/15 14:21:04 CDT , Pharmacy: [place], [place] Start Date: 12/19/15 Stop Date: 06/13/16 Status: Completednortriptyline 50 mg oral capsule 3 cap(s), Oral, HS, 0 Refill(s) Start Date: 12/24/13 Stop Date: 04/12/14 Status: Discontinuednortriptyline 50 mg oral capsule 3 cap(s), Oral, HS, # 90 cap(s), 5 Refill(s), Start Date: 06/13/16 11:26:03 [employer] , Pharmacy: [facility] Start Date: 06/13/16 Status: Orderednortriptyline 50 mg oral capsule 3 cap(s), Oral, HS, # 90 cap(s), 3 Refill(s), Start Date: 08/12/14 17:14:44 CDT , Pharmacy: [facility] [place] Start Date: 08/12/14 Stop Date: 12/09/14 Status: Completednortriptyline 50 mg oral capsule 3 cap(s), Oral, HS, # 90 cap(s), 2 Refill(s), Start Date: 05/13/14 15:29:17 [employer] , Pharmacy: [facility] [place] Start Date: 05/13/14 Stop Date: 08/12/14 Status: Completednortriptyline 50 mg oral capsule 3 cap(s), Oral, HS, # 90 cap(s), 5 Refill(s), Start Date: 06/09/15 13:54:00 [employer] , Pharmacy[place] [facility] [place] Start Date: 06/09/15 Stop Date: 12/19/15 Status: Completednortriptyline 50 mg oral capsule 3 cap(s), Oral, HS, # 90 cap(s), 0 Refill(s), Start Date: 04/12/14 15:26:55 [employer] , Pharmacy: [facility] [place] Start Date: 04/12/14 Stop Date: 05/13/14 Status: Completedomeprazole 20 mg oral delayed release capsule 1 cap(s), Oral, BID, # 60 cap(s), 5 Refill(s), Start Date: 09/21/15 14:54:43 CDT , Pharmacy: [facility] Start Date: 09/21/15 Stop Date: 04/10/16 Status: Completedomeprazole 20 mg oral delayed release capsule 1 cap(s), Oral, BID, # 60 cap(s), 5 Refill(s), Start Date: 09/07/14 16:08:52 CDT , Pharmacy: [facility] Start Date: 09/07/14 Stop Date: 03/14/15 Status: Completedomeprazole 20 mg oral delayed release capsule 1 cap(s), Oral, BID, # 60 cap(s), 0 Refill(s), Start Date: 04/12/14 15:26:52 [employer] , Pharmacy: [place], [place] Start Date: 04/12/14 Stop Date: 05/13/14 Status: Completedomeprazole 20 mg oral delayed release capsule 1 cap(s), Oral, BID, # 60 cap(s), 5 Refill(s), Start Date: 03/14/15 12:04:00 [employer] , Pharmacy: [place], [place] Start Date: 03/14/15 Stop Date: 09/21/15 Status: Completedomeprazole 20 mg oral delayed release capsule 1 cap(s), Oral, BID, # 60 cap(s), 5 Refill(s), Start Date: 04/10/16 10:44:06 [employer] , Pharmacy: [place], [place] Start Date: 04/10/16 Status: Orderedomeprazole 20 mg oral delayed release capsule 1 cap(s), Oral, Daily, 0 Refill(s) Start Date: 01/11/14 Stop Date: 04/12/14 Status: Discontinuedomeprazole 20 mg oral delayed release capsule 1 cap(s), Oral, BID, # 60 cap(s), 3 Refill(s), Start Date: 05/13/14 15:29:17 [employer] , Pharmacy: [place], [place] Start Date: 05/13/14 Stop Date: 09/07/14 Status: CompletedPen Thousandsticks Mini 31G 5mm See Instructions, Use daily with Tresiba and Victoza. DX E11.9, # 200 EA, 1 Refill(s), Pharmacy: [place], [place], Supply Special Instructions: Use daily with Tresiba and Victoza. DX E11.9 Start Date: 08/16/15 Status: OrderedPen Thousandsticks Mini 31G 5mm See Instructions, Use daily with Tresiba and Victoza, # 200 EA, 1 Refill(s), Supply Special Instructions: Use daily with Tresiba and Victoza Start Date: 08/16/15 Stop Date: 08/16/15 Status: DiscontinuedPneumovax 23 injectable solution See Instructions, IM ONETIME as directed, # 1 EA, 0 Refill(s), Start Date: 03/05 15:22:00 CDT, Pharmacy: [place], [place] Special Instructions: IM ONETIME as directed Start Date: 03/05/14 Stop Date: 08/19/14 Status: DiscontinuedPneumovax 23 injectable solution 0.5 mL, IM, ONETIME, # 1 mL, 0 Refill(s), Start Date: 03/05/14 15:20:00 CDT Start Date: 03/05/14 Stop Date: 03/05/14 Status: DiscontinuedPristiq 100 mg oral tablet, extended release 1 tab(s), Oral, Daily, # 30 tab(s), 5 Refill(s), Start Date: 12/19/15 14:21:40 CDT, Pharmacy: [place], [place] Start Date: 12/19/15 Stop Date: 06/13/16 Status: CompletedPristiq 100 mg oral tablet, extended release 1 tab(s), Oral, Daily, # 30 tab(s), 5 Refill(s), Start Date: 12/09/14 17:53:00 CDT, Pharmacy: [place], [place] Start Date: 12/09/14 Stop Date: 06/09/15 Status: CompletedPristiq 100 mg oral tablet, extended release 1 tab(s), Oral, Daily, # 30 tab(s), 2 Refill(s), Start Date: 05/13/14 15:29:16 [employer], Pharmacy: [place] Start Date: 05/13/14 Stop Date: 08/12/14 Status: CompletedPristiq 100 mg oral tablet, extended release 1 tab(s), Oral, Daily, # 30 tab(s), 5 Refill(s), Start Date: 06/09/15 13:54:00 [employer], Pharmacy: [place] Start Date: 06/09/15 Stop Date: 12/19/15 Status: CompletedPristiq 100 mg oral tablet, extended release 1 tab(s), Oral, Daily, # 30 tab(s), 0 Refill(s) Start Date: 01/11/14 Stop Date: 04/12/14 Status: DiscontinuedPristiq 100 mg oral tablet, extended release 1 tab(s), Oral, Daily, # 30 tab(s), 0 Refill(s), Start Date: 04/12/14 15:26:54 [employer], Pharmacy: [place] Start Date: 04/12/14 Stop Date: 05/13/14 Status: CompletedPristiq 100 mg oral tablet, extended release 1 tab(s), Oral, Daily, # 30 tab(s), 5 Refill(s), Start Date: 06/13/16 11:23:30 [employer], Pharmacy: [place] Start Date: 06/13/16 Status: OrderedPristiq 100 mg oral tablet, extended release 1 tab(s), Oral, Daily, # 30 tab(s), 3 Refill(s), Start Date: 08/12/14 17:14:47 CDT, Pharmacy: [place] Start Date: 08/12/14 Stop Date: 12/09/14 Status: CompletedPristiq 50 mg oral tablet, extended release 2 tab(s), Oral, Daily, 0 Refill(s) Start Date: 12/24/13 Stop Date: 01/11/14 Status: DiscontinuedSenokot S 50 mg-8.6 mg oral tablet 1 tab(s), Oral, BID, X 7 days, # 14 tab(s), 0 Refill(s), Pharmacy: [place], [place] Start Date: 01/15/14 Stop Date: 01/22/14 Status: CompletedSuprep Bowel Prep Kit oral liquid 1 kit(s), Oral, ONETIME, # 1 kit(s), 0 Refill(s), Start Date: 04/12/15 8:52:00 [employer], Pharmacy: [place] Start Date: 04/12/15 Stop Date: 05/26/15 Status: CompletedSuprep Bowel Prep Kit oral liquid 1 bottles, Oral, BID, Mix 1 btl to 16oz water and drink. Next morning; repeat use second btl. Complete at least 1 hr before colonscopy., # 1 kit(s), 0 Refill (s), Start Date: 04/12/15 8:38:00 [employer], Pharmacy: [facility] [place] Special Instructions: Mix 1 btl to 16oz water and drink. Next morning; repeat use second btl. Complete at least 1 hr before colonscopy. Start Date: 04/12/15 Stop Date: 04/13/15 Status: CompletedTest Strips Other (See Comment) 3 Month Supply, Subcutaneous, TID, Truetest glucose test strips. DX E11.9, # 300 EA, 5 Refill(s), Pharmacy: [place], [place], Supply Special Instructions: Truetest glucose test strips. DX E11.9 Start Date: 11/11/15 Status: OrderedTest Strips Other (See Comment) 3 Month Supply, Subcutaneous, TID, Truetest glucose test strips. DX 250.00, # 1 QS, 1 Refill(s), Pharmacy: [place], [place], Supply Special Instructions: Truetest glucose test strips. DX 250.00 Start Date: 05/13/14 Stop Date: 12/16/14 Status: CompletedTest Strips Other (See Comment) 3 Month Supply, Subcutaneous, TID, Truetest glucose test strips. DX E11.9, # 300 EA, 1 Refill(s), Pharmacy: [place], [place], Supply Special Instructions: Truetest glucose test [...] 250.00, # 1 QS, 1 Refill(s), Pharmacy: [place], [place], Supply Special Instructions: Truetest glucose test strips. DX 250.00 Start Date: 12/16/14 Stop Date: 02/09/15 Status: CompletedtraMADol 50 mg oral tablet 1 tab(s), Oral, q6hr interval, PRN pain moderate 4-7, # 60 tab(s), 1 Refill(s), Start Date: 05/21/14 13:07:39 [employer], Pharmacy: [place], [place] Start Date: 05/21/14 Stop Date: 05/24/15 [...] Start Date: 10/13/15 9:45: 32 CDT, Pharmacy: [place], [place] Start Date: 10/13/15 Stop Date: 01/23/16 Status: CompletedTresiba FlexTouch 200 units/mL subcutaneous solution See Instructions, 50 units Subcutaneous Daily, # 1 EA, 2 Refill(s), Start Date: 07/19/15 14:26:00 CDT, Pharmacy: [place], [place] Special Instructions: 50 units Subcutaneous Daily Start Date: 07/19/15 Stop Date: 10/13/15 Status: CompletedTresiba FlexTouch 200 units/mL subcutaneous solution 54 units, Subcutaneous, Daily, # 9 mL, 5 Refill(s), Start Date: 01/23/16 16:48: 41 CDT, Pharmacy: [place], [place] Start Date: 01/23/16 Status: OrderedTylenol 8 HR Arthritis Pain 1,300 mg, Oral, BID, 0 Refill(s), Start Date: 05/16/16 7:29:00 [employer] Start Date: 05/16/16 Status: OrderedTylenol Arthritis Caplet mg, Oral, q8hr interval, 0 Refill(s) Start Date: 12/24/13 Stop Date: 05/16/16 Status: CompletedUnasyn 2 g-1 g injection 3 gm, IV, q6hr interval, # 148 bags, 0 Refill(s) Start Date: 01/15/14 Stop Date: 08/19/14 Status: Discontinuedursodiol 300 mg oral capsule 1 cap(s), Oral, TID, # 90 cap(s), 5 Refill(s), Start Date: 12/19/15 14:20:09 CDT , Pharmacy[place] [facility] [place] Start Date: 12/19/15 Stop Date: 06/16/16 Status: Orderedursodiol 300 mg oral capsule 1 cap(s), Oral, TID, 0 Refill(s) Start Date: 12/24/13 Stop Date: 04/12/14 Status: Discontinuedursodiol 300 mg oral capsule 1 cap(s), Oral, TID, # 90 cap(s), 2 Refill(s), Start Date: 05/13/14 15:29:20 [employer] , Pharmacy: [facility] [place] Start Date: 05/13/14 Stop Date: 08/12/14 Status: Completedursodiol 300 mg oral capsule 1 cap(s), Oral, TID, X 30 days, # 90 cap(s), 5 Refill(s), Start Date: 06/09/15 13:54:00 [employer], Pharmacy: [place] Start Date: 06/09/15 Stop Date: 12/19/15 Status: Completedursodiol 300 mg oral capsule 1 cap(s), Oral, TID, # 90 cap(s), 5 Refill(s), Start Date: 12/09/14 17:53:00 CDT , Pharmacy: [facility] [place] Start Date: 12/09/14 Stop Date: 06/09/15 Status: Completedursodiol 300 mg oral capsule 1 cap(s), Oral, TID, # 90 cap(s), 3 Refill(s), Start Date: 08/12/14 17:14:47 CDT , Pharmacy: [facility] Start Date: 08/12/14 Stop Date: 12/09/14 Status: Completedursodiol 300 mg oral capsule 1 cap(s), Oral, TID, # 90 cap(s), 0 Refill(s), Start Date: 04/12/14 15:26:52 [employer] , Pharmacy: [place], [place] Start Date: 04/12/14 Stop Date: 05/13/14 Status: CompletedVicodin 5 mg-325 mg oral tablet See Instructions, 1-2 tabOral 4- q6hr interval, 0 Refill(s) Special Instructions: 1-2 tabOral 4- q6hr interval Start Date: 01/28/14 Stop Date: 03/05/14 Status: DiscontinuedVictoza 18 mg/3 mL subcutaneous solution 1.8 mg, Subcutaneous, Daily, # 1 QS, 5 Refill(s), Start Date: 11/11/15 8:18:49 CDT, Pharmacy: [place], [place] Start Date: 11/11/15 Stop Date: 05/09/16 Status: OrderedVictoza 18 mg/3 mL subcutaneous solution 0.6 mg, Subcutaneous, Daily, 0.6 mg daily for 7 days then increase to 1.2 mg daily., # 6 mL, 2 Refill(s), Start Date: 07/27/14 12:14:00 CDT, Pharmacy: [place], [place] Special Instructions: 0.6 mg daily for 7 days then increase to 1.2 mg daily. Start Date: 07/27/14 Stop Date: 11/16/14 Status: CompletedVictoza 18 mg/3 mL subcutaneous solution 1.2 mg, Subcutaneous, Daily, # 1 QS, 5 Refill(s), Start Date: 11/16/14 15:52:54 CDT, Pharmacy: [place] Start Date: 11/16/14 Stop Date: 03/30/15 Status: DiscontinuedVictoza 18 mg/3 mL subcutaneous solution 1.8 mg, Subcutaneous, Daily, X 30 days, # 1 QS, 5 Refill(s), Start Date: 11:25:28 [employer], Pharmacy: [place] Start Date: 03/30/15 Stop Date: 11/11/15 Status: CompletedVitamin D3 1000 intl units oral tablet 1 tab(s), Oral, Daily, # 30 tab(s), 0 Refill(s), Start Date: 05/24/15 11:56:00 [employer] Start Date: 05/24/15 Stop Date: 12/28/15 Status: DiscontinuedVitamin D3 2000 intl units oral tablet 2 tab(s), Oral, Daily, # 60 tab(s), 0 Refill(s), Start Date: 12/28/15 15:55:00 CDT Start Date: 12/28/15 Status: OrderedZostavax subcutaneous injection See Instructions, Subcutaneous ONETIME as directed, # 1 EA, 0 Refill(s), Start Date: 03/05/14 15:20:00 CDT, Pharmacy: [place], [place] Special Instructions: Subcutaneous ONETIME as directed Start Date: 03/05/14 Stop Date: 08/19/14 Status: DiscontinuedZostavax subcutaneous injection 1 EA, Subcutaneous, ONETIME, # 1 EA, 0 Refill(s), Start Date: 03/05/14 15:19:00 CDT Start Date: 03/05/14 Stop Date: 03/05/14 Status: Discontinued Results Patient Viewable Results Most recent to oldest [Reference Range]: 1 Estimated Creatinine Clearance 137.04 mL/min (06/14/16 7:30 AM) Immunizations No data available for this section Procedures Procedure Date Related Diagnosis Body Site Colonoscopy1 05/26/15 Esophagogastroduodenoscopy2 05/26/15 Transurethral Resection Prostate3 02/01/14 Tendonesis (Left, Foot L)4 01/12/14 Cystoscopy 01/01/14 Ear drum5 2011 Gastric biopsy 2011 Polyp of vocal cord6 2010 Amputation of toe [id number]-populated from documented surgical [id number] from documented surgical [id number] from documented surgical [id number] from documented surgical [id number] Social History No data available for this section Assessment and Plan No data available for this section
[2016-08-31] MEDS ORDERED: RINGERS SOLUTION,LACTATED 1,000 ML IV ONE (11:50)
[2016-08-31] MEDS ORDERED: GENTAMICIN SULFATE 80 MG/2 ML VIAL IV ONE (12:05)
[2016-08-31 14:09] VITALS: BP 165/76
== END 2016-08-31 11:01 | disposition home or self-care (01) ==
LOC: AMB 11:00
PROVIDERS: ATTEND Urology
PROC: 0V903ZX Drainage of Prostate, Percutaneous Approach, Diagnostic (ICD-10-PCS; principal; 2016-08-31 12:05)
DX: C61 Malignant neoplasm of prostate (principal); E11.9 Type 2 diabetes mellitus without complications; I10 Essential (primary) hypertension; J44.9 Chronic obstructive pulmonary disease, unspecified; K21.9 Gastro-esophageal reflux disease without esophagitis; E03.9 Hypothyroidism, unspecified; F41.9 Anxiety disorder, unspecified; E66.01 Morbid (severe) obesity due to excess calories; Z68.42 Body mass index [BMI] 45.0-49.9, adult; F17.200 Nicotine dependence, unspecified, uncomplicated

== ENCOUNTER 2017-02-04 08:22 | Day surgery (SDC) | payer MEDICARE, OTHER ==
[~2017-02-04 08:22] MED LIST changes: +ACETAMINOPHEN 325 MG TABLET PO PRN; +ACETYLCHOLINE CHLORIDE 20 DROP KIT IO PRN; +BUPIVACAINE HCL/PF 30 ML VIAL IJ PRN; +CYCLOPENTOLATE HCL 20 DROP BTL RIGHTEYE PRN; +DEXTROSE 5%-0.5 NORMAL SALINE 1,000 ML IV PRN; +EPINEPHrine 1 MG/ML AMPUL IO PRN; -GENTAMICIN SULFATE 80 MG in DEXTROSE 5 % IN WATER 100 ML IV PRN; +HYALURONATE SODIUM 0.4 ML DISP.SYRIN IO PRN; +LIDOCAINE HCL/PF 200 MG/5 ML AMPUL TP PRN; +LIDOCAINE HCL/PF 5 ML VIAL IO PRN; +NORMAL SALINE 3 ML BOX IV PRN; +TETRACAINE HCL 150 DROP BTL OP PRN; -metroNIDAZOLE/SODIUM CHLORIDE 500 MG/100 ML BAG IV PRN
[2017-02-04] MEDS: PHENYLEPHRINE HCL 50 DROP BTL RIGHTEYE PRN ×4 (08:45→09:30)
[2017-02-04] MEDS: TROPICAMIDE 150 DROP BTL RIGHTEYE PRN ×4 (08:45→09:30)
[2017-02-04] MEDS ORDERED: RINGER'S SOLUTION,LACTATED 1,000 ML IV ONE (09:13)
[2017-02-04] MEDS: HYALURONATE SODIUM 0.85 ML DISP.SYRIN IO PRN ×2 (09:54→10:10)
[2017-02-04 11:25] VITALS: BP 130/64
== END 2017-02-04 08:23 | disposition home or self-care (01) ==
LOC: AMB 08:22
PROVIDERS: ATTEND Ophthalmology
PROC: 08RJ3JZ Replacement of Right Lens with Synthetic Substitute, Percutaneous Approach (ICD-10-PCS; principal; 2017-02-04 09:20)
DX: H26.9 Unspecified cataract (principal); I10 Essential (primary) hypertension; E11.9 Type 2 diabetes mellitus without complications; E78.5 Hyperlipidemia, unspecified; E03.9 Hypothyroidism, unspecified; J44.9 Chronic obstructive pulmonary disease, unspecified; K21.9 Gastro-esophageal reflux disease without esophagitis; M15.9 Polyosteoarthritis, unspecified; E55.9 Vitamin D deficiency, unspecified; E66.01 Morbid (severe) obesity due to excess calories; Z68.42 Body mass index [BMI] 45.0-49.9, adult; Z87.891 Personal history of nicotine dependence

== ENCOUNTER 2017-02-18 08:08 | Day surgery (SDC) | payer MEDICARE, OTHER ==
[~2017-02-18 08:08] MED LIST changes: +CYCLOPENTOLATE HCL 20 DROP BTL LEFTEYE PRN; -CYCLOPENTOLATE HCL 20 DROP BTL RIGHTEYE PRN; +HYALURONATE SODIUM 0.85 ML DISP.SYRIN IO PRN
[2017-02-18] MEDS: PHENYLEPHRINE HCL 50 DROP BTL LEFTEYE PRN ×3 (08:29→09:05)
[2017-02-18] MEDS: TROPICAMIDE 150 DROP BTL LEFTEYE PRN ×3 (08:29→09:05)
[2017-02-18] MEDS ORDERED: RINGER'S SOLUTION,LACTATED 1,000 ML IV ONE (08:56)
[2017-02-18 11:10] VITALS: BP 137/69
== END 2017-02-18 08:09 | disposition home or self-care (01) ==
LOC: AMB 08:08
PROVIDERS: ATTEND Ophthalmology
PROC: 08RK3JZ Replacement of Left Lens with Synthetic Substitute, Percutaneous Approach (ICD-10-PCS; principal; 2017-02-18 09:20)
DX: H26.9 Unspecified cataract (principal); I10 Essential (primary) hypertension; E11.9 Type 2 diabetes mellitus without complications; E78.5 Hyperlipidemia, unspecified; E03.9 Hypothyroidism, unspecified; J44.9 Chronic obstructive pulmonary disease, unspecified; K21.9 Gastro-esophageal reflux disease without esophagitis; M15.9 Polyosteoarthritis, unspecified; E55.9 Vitamin D deficiency, unspecified; F32.9 Major depressive disorder, single episode, unspecified; F41.9 Anxiety disorder, unspecified; E66.01 Morbid (severe) obesity due to excess calories; Z68.42 Body mass index [BMI] 45.0-49.9, adult; Z87.891 Personal history of nicotine dependence

== ENCOUNTER 2017-06-07 08:19 | Day surgery (SDC) | payer MEDICARE, OTHER ==
[~2017-06-07 08:19] MED LIST changes: -ACETAMINOPHEN 325 MG TABLET PO PRN; -ACETYLCHOLINE CHLORIDE 20 DROP KIT IO PRN; -BUPIVACAINE HCL/PF 30 ML VIAL IJ PRN; +CIPROFLOXACIN IN 5 % DEXTROSE 400 MG/200 ML BAG IV PRN; -CYCLOPENTOLATE HCL 20 DROP BTL LEFTEYE PRN; -DEXTROSE 5%-0.5 NORMAL SALINE 1,000 ML IV PRN; -EPINEPHrine 1 MG/ML AMPUL IO PRN; -HYALURONATE SODIUM 0.4 ML DISP.SYRIN IO PRN; -HYALURONATE SODIUM 0.85 ML DISP.SYRIN IO PRN; -LIDOCAINE HCL/PF 200 MG/5 ML AMPUL TP PRN; -LIDOCAINE HCL/PF 5 ML VIAL IO PRN; +NORMAL SALINE 1,000 ML IV PRN; -NORMAL SALINE 3 ML BOX IV PRN; -TETRACAINE HCL 150 DROP BTL OP PRN
[2017-06-07] MEDS ORDERED: NORMAL SALINE 1,000 ML IV ONE (08:40)
[2017-06-07 10:36] VITALS: BP 155/71
== END 2017-06-07 08:20 | disposition home or self-care (01) ==
LOC: AMB 08:19
PROVIDERS: ATTEND Urology
PROC: 0T7D8DZ Dilation of Urethra with Intraluminal Device, Via Natural or Artificial Opening Endoscopic (ICD-10-PCS; principal; 2017-06-07)
DX: N35.8 Other urethral stricture (principal); N40.0 Benign prostatic hyperplasia without lower urinary tract symptoms; C61 Malignant neoplasm of prostate; R97.20 Elevated prostate specific antigen [PSA]; Z87.440 Personal history of urinary (tract) infections; E66.01 Morbid (severe) obesity due to excess calories; J44.9 Chronic obstructive pulmonary disease, unspecified; Z87.891 Personal history of nicotine dependence; E11.9 Type 2 diabetes mellitus without complications; Z79.4 Long term (current) use of insulin